=== PATIENT | female | born 2000 | race African-American/Black ===

== ENCOUNTER 2019-10-19 21:22 | Inpatient (IN) ==
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
[2019-10-19 23:21] LABS: Basophils # (auto) 0.02 K/uL (0-0.2); Basophils % (auto) 0.3 %; Eosinophils # (auto) 0.01 K/uL (0-0.5); Eosinophils % (auto) 0.1 %; Hematocrit (blood only) 42.5 % (37-47); Hemoglobin 14.6 g/dL (12.0-16.0); Immature Granulocytes # (auto) 0.03 K/uL (0.00-0.02); Immature Granulocytes % (auto) 0.4 %; Lymphocytes # (auto) 1.42 K/uL (1.2-3.4); Lymphocytes % (auto) 18.8 %; Mean Corpuscular Hemoglobin 30.6 pg (25-34); Mean Corpuscular Hgb Conc 34.4 g/dL (32-36); Mean Corpuscular Volume 89.1 fL (80-100); Mean Platelet Volume 10.9 fL (7.4-10.4); Monocytes # (auto) 0.56 K/uL (0.11-0.59); Monocytes % (auto) 7.4 %; Neutrophils # (auto) 5.52 K/uL (1.4-6.5); Platelet Count 278 K/uL (130-400); RDW Coefficient of Variation 12.7 % (11.5-14.5); RDW Standard Deviation 41.1 fL (36.4-46.3); Red Blood Count 4.77 M/uL (4.2-5.4); White Blood Count 7.56 K/uL (4.8-10.8)
[2019-10-19 23:41] LABS: Albumin Level 4.6 gm/dl (3.4-5.0); BUN Creatinine Ratio 10.1 (10-20); Creatinine Clr Calc Pharmacy 101.5 ml/min; Est GFR (African American) 108.9; Est GFR (Non-African American) 93.9; Potassium 3.7 mmol/L (3.5-5.1)
[2019-10-19 23:52] LABS: Albumin Globulin Ratio 1.2 (0.9-2); Bilirubin,Total 0.5 mg/dl (0.2-1); Globulin 3.9 gm/dl (2.5-4.0); Thyroid Stimulating Hormone 1.11 uIu/ml (0.300-4.500); Total Protein 8.5 gm/dl (6.4-8.2)
[2019-10-19 23:53] LABS: Acetaminophen < 2 ug/ml (10-30)
[2019-10-19 23:54] LABS: Salicylate < 1.7 mg/dl (2.8-20)
[2019-10-20 00:01] LABS: Pregnancy Test, Serum Negative (Negative)
[2019-10-20] MEDS ORDERED: ACETAMINOPHEN 500 MG TAB PO STA (00:47)
--- NOTE | 2019-10-20 01:40 | Emergency Department Note ---
ED Visit Note This case was signed out to me at change of shift. The patient is currently voluntary. 0315: We are currently waiting a urine specimen so that the patient can be medically cleared. [facility] will evaluate once they are cleared. 0510: I evaluated the patient at this time. She is communicating with her mother and eating una crackers and peanut butter. I had a pleasant conversation with her. She is fully awake, alert and oriented to day time and place. She is somewhat slow to answer questions as it takes her some time to process the questions. 0525: I discussed the case with Dr. perdomo and she requested that I give the patient 0.5 mg of oral Risperdal prior to her being accepted to [facility] . : Headache Qualifiers: Headache type: unspecified Headache chronicity pattern: acute headache Abdominal pain Qualifiers: Abdominal location: generalized Qualified Code(s): R10.84 - Generalized abdominal pain
[2019-10-20 03:18] VITALS: O2SAT 100
[2019-10-20 03:39] LABS: Appearance Urine Clear (Clear); Bilirubin Urine Negative (Negative); Blood Urine Negative (Negative); Color Urine Yellow; Glucose Urine UA Negative (Negative); Ketones Urine Trace (Negative); Leukocyte Esterase Urine Negative (Negative); Nitrite Urine Negative (Negative); Protein Urine Negative (Negative); Specific Gravity Urine 1.022 (1.000-1.030); Urobilinogen Urine Negative (Negative); pH Urine 6.5 (4.5-7.5)
[2019-10-20 03:57] LABS: Amphetamines+Metham, Urine Neg (Neg); Barbiturates, Urine Neg (Neg); Benzodiazepine, Urine Neg (Neg); Cocaine, Urine Neg (Neg); MDMA (Ecstacy), Urine Neg (Neg); Methadone, Urine Neg (Neg); Opiate, Urine Neg (Neg); Phencyclidine, Urine Neg (Neg)
[2019-10-20] MEDS ORDERED: risperiDONE 0.5 MG TABLET PO STA (05:25)
[2019-10-20] MEDS ORDERED: ACETAMINOPHEN 325 MG TAB PO PRN (06:44)
[2019-10-20] MEDS ORDERED: BISMUTH SUBSALICYLATE PER ML OMNICELL CHARGE PO PRN (06:44)
[2019-10-20] MEDS ORDERED: MAGNESIUM HYDROXIDE SUSP 30 ML UDC PO PRN (06:44)
[2019-10-20] MEDS ORDERED: SODIUM CHLORIDE 0.65% NA SOLN 45 ML (OCEAN) PRN (06:44)
[2019-10-20] MEDS ORDERED: ALUMINUM/MAGNESIUM SUSP 30 ML UDC PO PRN (06:44)
--- NOTE | 2019-10-20 07:54 | CT Scan Report ---
CT head/brain wo con CLINICAL HISTORY: 19 years-old Female with parinoia, ams. Acutely altered mental status TECHNIQUE: Multiple axial CT images of the head were obtained without contrast. A dose lowering tech nique was utilized adhering to the principles of ALARA. CT DOSE: 614.27 mGy.cm COMPARISON: None. FINDINGS: No acute intracranial hemorrhage, midline shift, intracranial mass, hydrocephalus, territorial ischem ia or abnormal extra-axial collection. The calvarium is intact. The paranasal sinuses, mastoid air cells, and middle ear cavities are clear . IMPRESSION: No acute intracranial abnormality. ACT 112: Negative or not required by law. The above report was generated using voice recognition software. It may contain grammatical, syntax o r spelling errors. Electronically signed by: Alan Otero M.D. 10/20/2019 7:53 AM
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
[2019-10-20] MEDS: MULTIVITAMIN TAB PO SCH (10:25)
[2019-10-20] MEDS ORDERED: risperiDONE 0.5 MG TABLET PO PRN (12:29)
[2019-10-20] MEDS ORDERED: risperiDONE 0.5 MG TABLET PO SCH (14:00)
[2019-10-20] MEDS: LORazepam 0.5 MG TAB PO PRN (17:44)
[2019-10-20] MEDS ORDERED: risperiDONE ODT 0.5 MG SOLTAB PO PRN (18:30)
[2019-10-20] MEDS: risperiDONE ODT 0.5 MG SOLTAB PO SCH (21:05)
[2019-10-21] MEDS: LORazepam 0.5 MG TAB PO PRN (06:07)
[2019-10-21] MEDS: MULTIVITAMIN TAB PO SCH (10:25)
[2019-10-21] MEDS: risperiDONE ODT 0.5 MG SOLTAB PO SCH ×2 (10:25→10:52)
[2019-10-21] MEDS ORDERED: RISPERIDONE ODT 1MG PO PRN (14:57)
--- NOTE | 2019-10-21 15:02 | Psychiatric Progress Note ---
Date of Service October 21, 2019 Impression / Recommendations Impression 19 yo female with no prior psych hx presents with acute onset of severe thought disorganization with blocking in just the past 1-2 days. Differential mainly includes first break psychosis due to thought disorder, atypical [place], or substance induced psychotic disorder. I am favoring the latter given the time course and positive tox screen for MJ but additional collateral is needed. She has good premorbid functioning but also need to determine if other symptoms as prodrome that mother not aware of. (1) Psychotic disorder: 10/19--The patient was admitted to the [facility] ([facility]) on q15 min checks (behavioral with suicide precautions) for safety. The patient will participate in group, recreational, and milieu therapies and will be offered additional individual and family sessions as clinically appropriate. She is not able to fully understand risks/benefits of antipsychotic medications at this time and will be offered Risperdal 0.5 mg BID today with likely titration. Additional Risperdal and Ativan prn agitation as appears quite paranoid. Fasting labs in am as likely to be discharged on atypical. 10/20--tolerating medications so far, need to increase Risperdal to 1 mg BID and Ativan prn to 1 mg for severity of symptoms. Consider switch to Zyprexa if remains sleepless. 302 completed. Will reattempt fasting labs in am as patient ate prior to draw. Inventory Assets Strengths: intelligence, family support Needs: improve insight into her condition Risk Factors Assessment Do You Have Access To A Gun?: No Previous Attempt: No Previous Psychiatric Hospitalization: No Protective Factors Assessment Employed: No Supportive Family: Yes Interval History Chief Complaint "I'm not crazy, I'm leaving". Review of Systems Sleep Information Total Hours of Sleep: 0 Meal Information Percent Meal Consumed - Breakfast: 50 Percent Meal Consumed - Lunch: 50 Percent Meal Consumed - Dinner: 50 Nutrition Comment: pt. asleep Subjective Subjective Patient was seen & assessed and interval progress reviewed with nursing and social work. Patient has been very disorganized in behavior, staring at other pa tients, delayed responses due to thought blocking, no understanding of why she is here. Randomly filling out paperwork, listed a co-patient as her POA. Regardless correctly completed a 72 hour notice. Mother was contacted and made aware of need to move to 302 involuntary commitment. Delegate approved warrant, patient had no understanding of rights. Wore some of her roommate's clothing. Did not sleep. Frequently testing boundaries at nurses station. Was checking doors so now on elopement precautions. Very resistant to medications, will take if talks with mother and given with . Physical Exam Psychiatric Orientation: alert and + guarded Apperance: + disheveled Eye Contact: + poor eye contact Motor Behavior: + psychomotor retardation Affect: + blunted affect Thought Process: + thought blocking Thought Content: + paranoid Hallucinations: + visual hallucinations (vs illusions) Cognition: language grossly intact; + attention not intact Insight: + impaired insight Judgement: + impaired judgement Vital Signs (Past 24 Hours) Last Vital Signs Temp 36.9 C 10/20/19 08:10 Pulse 90 10/20/19 08:10 Resp 18 10/20/19 08:10 BP 120/70 10/20/19 08:10 Pulse Ox 100 10/20/19 06:26 Results & Data ([facility] [place]) Current Inpatient Medications Current Inpatient Medications: Current Inpatient Medications Acetaminophen (Acetaminophen 325 Mg Tab) 650 mg PO Q4H PRN PRN Reason: Headache or Minor Fever Stop: 11/19/19 06:43 Last Admin: 10/20/19 18:30 Dose: 650 mg Documented by: Al Hydrox/Mg Hydrox/Simethicone (Aluminum/Magnesium Susp 30 Ml Udc) 30 ml PO Q4H PRN PRN Reason: GI Upset Stop: 11/19/19 06:43 Benztropine Mesylate (Benztropine Mesylate 0.5 Mg Tab) 0.5 mg PO Q6 PRN PRN Reason: Muscle Spasm Stop: 11/19/19 12:28 Bismuth Subsalicylate (Bismuth Subsalicylate Per Ml Omnicell Charge) 15 ml PO PRN PRN PRN Reason: Loose Stool Stop: 11/19/19 06:43 Hydroxyzine HCl (Hydroxyzine Hcl 25 Mg Tab) 50 mg PO HSZ PRN PRN Reason: Insomnia Stop: 11/19/19 06:43 Hydroxyzine HCl (Hydroxyzine Hcl 25 Mg Tab) 25 mg PO Q4H PRN PRN Reason: Anxiety Stop: 11/19/19 06:43 Lorazepam (Lorazepam 1 Mg Tab) 1 mg PO Q6 PRN PRN Reason: Anxiety/Agitation Stop: 11/19/19 12:28 Magnesium Hydroxide (Magnesium Hydroxide Susp 30 Ml Udc) 30 ml PO DAILY PRN PRN Reason: Constipation Stop: 11/19/19 06:43 Multivitamins (Multivitamin Tab) 1 tab PO QAM DANUTA Stop: 11/19/19 08:59 Last Admin: 10/21/19 10:25 Dose: Not Given Documented by: Risperidone (Risperidone Odt 1mg) 1 mg PO BID DANUTA Stop: 11/20/19 20:59 Risperidone (Risperidone Odt 1mg) 1 mg PO Q6 PRN PRN Reason: Anxiety/Agitation Stop: 11/19/19 18:29 Sodium Chloride (Sodium Chloride 0.65% Na Soln 45 Ml ([place])) 1 - 2 sprays NA PRN PRN PRN Reason: Nasal Dryness/Congestion Stop: 11/19/19 06:43 Mental Health & Subst Abuse Tx Therapist Name of Therapist: None Statistical Technician Name of Statistical Technician: None Post Discharge Appointments Primary Care Physician Name Of Family Doctor: [facility] Primary Care Provider Appointment Comment: [facility] Contact Information Discharge Contact Information Comment: Permanent Address[address] [address] [place] [address] (1) Psychotic disorder Psychosis type: unspecified psychosis type Qualified Code(s): F29 - Unspecified psychosis not due to a substance or known physiological condition
[2019-10-21] MEDS: RISPERIDONE ODT 1MG PO SCH (22:42)
[2019-10-21] MEDS ORDERED: OLANZapine 10 MG/2.1 ML SDV IM PRN (23:00)
[2019-10-21 23:41] LABS: Marijuana Quant, GCMS Urine 230 ng/mL (<5)
[2019-10-22] MEDS: LORazepam 1 MG TAB PO PRN (04:49)
[2019-10-22] MEDS: RISPERIDONE ODT 1MG PO SCH (08:17)
[2019-10-22] MEDS: MULTIVITAMIN TAB PO SCH (08:17)
--- NOTE | 2019-10-22 09:31 | Psychiatric Progress Note ---
Date of Service October 22, 2019 Impression / Recommendations Impression 19 yo female with no prior psych hx presents with acute onset of severe thought disorganization with blocking in just the past 1-2 days. Differential mainly includes first break psychosis due to thought disorder, atypical [place]ia, or substance induced psychotic disorder. She has been resistant to medication and is now on a 302 commitment after signing a 72 hour notice. (1) Psychotic disorder: 10/19--The patient was admitted to the [facility] ([facility] unit) on q15 min checks (behavioral with suicide precautions) for safety. The patient will participate in group, recreational, and milieu therapies and will be offered additional individual and family sessions as clinically appropriate. She is not able to fully understand risks/benefits of antipsy chotic medications at this time and will be offered Risperdal 0.5 mg BID today with likely titration. Additional Risperdal and Ativan prn agitation as appears quite paranoid. Fasting labs in am as likely to be discharged on atypical. 10/20--tolerating medications so far, need to increase Risperdal to 1 mg BID and Ativan prn to 1 mg for severity of symptoms. Consider switch to Zyprexa if remains sleepless. 302 completed. Will reattempt fasting labs in am as patient ate prior to draw. 10/21--will add standing Ativan 1 mg BID (2nd dose with evening meal) given catatonic features and given lack of sleep and possible need for IM prep, hold Risperdal tonight in favor of 1 time dose of Zyprexa 5 mg hs. If benefit, primary team can decide which atypical to continue with tomorrow. It is my medical opinion that Kimberly is unable to care for herself outside of the hospital setting and that worsening of her psychosis or significant harm to self or others is likely within the next 30 days if she does not receive antipsychotic medication. This is necessary even over her objection to restore functioning to participate in care and treatment planning. Inventory Assets Strengths: intelligence, family support Needs: improve insight into her condition Risk Factors Assessment Do You Have Access To A Gun?: No Previous Attempt: No Previous Psychiatric Hospitalization: No Protective Factors Assessment Employed: No Supportive Family: Yes Interval History Chief Complaint "I'm sorry, I don't know who I am". Review of Systems Sleep Information Total Hours of Sleep: 0 Meal Information Percent Meal Consumed - Breakfast: 50 Percent Meal Consumed - Lunch: 50 Percent Meal Consumed - Dinner: 0 Nutrition Comment: pt. asleep Subjective Subjective Patient was seen & assessed and interval progress reviewed with nursing. Only slept 4-8 pm, no sleep on overnight shift. She left DANIELLE readily this am to speak with mother on phone and essentially froze, staring, though blocking. She is obsessed with a copatient. Harder to redirect. Tried to take phone from social media developer. Seems less paranoid if able to see staff mouths briefly behind face shield but obviously due to to precautions need to limit and confirm. Asked nurse what she should do with a cup and asked a patient to build her a house and started crying thinking that a staff member was God. I spoke with mother by phone, reportedly sister called in asking if she could be started on lithium or Tegretol mood stabilizers. Mother was very understanding of need for involuntary commitment as unsafe to leave hospital. Answered questions re: use of atypical antipsychotics. Reviewed that primary cause of her psychosis is unclear at this time, given no hx of mood swings or issues while home on quarantine bipolar seems less likely and she would not be able to take the lithium right now even if it was appropriate. Reviewed that longer term plan will need to be formulated after she improved a bit and Risperdal was chose as less EPS/TD risk than Haldol and can be given as dissolvable. She again confirmed her baseline functioning and rapid onset of symptoms and denied family history of bipolar or psychosis. Physical Exam Psychiatric Orientation: alert and + guarded Apperance: + disheveled Eye Contact: + poor eye contact Motor Behavior: + psychomotor retardation Affect: + blunted affect Thought Process: + thought blocking Thought Content: + paranoid Hallucinations: + visual hallucinations (vs illusions) Cognition: language grossly intact; + attention not intact Insight: + impaired insight Judgement: + impaired judgement Vital Signs (Past 24 Hours) Last Vital Signs Temp 36.9 C 10/20/19 08:10 Pulse 90 10/20/19 08:10 Resp 18 10/20/19 08:10 BP 120/70 10/20/19 08:10 Pulse Ox 100 10/20/19 06:26 Results & Data ([facility]) Laboratory Results Laboratory Results - last 24 hr 10/20/19 03:25 U Marijuana THC Carboxy 230 H Drug Screen Comment SEE NOTE Current Inpatient Medications Current Inpatient Medications: Current Inpatient Medications Acetaminophen (Acetaminophen 325 Mg Tab) 650 mg PO Q4H PRN PRN Reason: Headache or Minor Fever Stop: 11/19/19 06:43 Last Admin: 10/20/19 18:30 Dose: 650 mg Documented by: Al Hydrox/Mg Hydrox/Simethicone (Aluminum/Magnesium Susp 30 Ml Udc) 30 ml PO Q4H PRN PRN Reason: GI Upset Stop: 11/19/19 06:43 Benztropine Mesylate (Benztropine Mesylate 0.5 Mg Tab) 0.5 mg PO Q6 PRN PRN Reason: Muscle Spasm Stop: 11/19/19 12:28 Bismuth Subsalicylate (Bismuth Subsalicylate Per Ml Omnicell Charge) 15 ml PO PRN PRN PRN Reason: Loose Stool Stop: 11/19/19 06:43 Hydroxyzine HCl (Hydroxyzine Hcl 25 Mg Tab) 50 mg PO HSZ PRN PRN Reason: Insomnia Stop: 11/19/19 06:43 Hydroxyzine HCl (Hydroxyzine Hcl 25 Mg Tab) 25 mg PO Q4H PRN PRN Reason: Anxiety Stop: 11/19/19 06:43 Lorazepam (Lorazepam 1 Mg Tab) 1 mg PO Q6 PRN PRN Reason: Anxiety/Agitation Stop: 11/19/19 12:28 Last Admin: 10/22/19 04:49 Dose: 1 mg Documented by: Magnesium Hydroxide (Magnesium Hydroxide Susp 30 Ml Udc) 30 ml PO DAILY PRN PRN Reason: Constipation Stop: 11/19/19 06:43 Multivitamins (Multivitamin Tab) 1 tab PO QAM DANUTA Stop: 11/19/19 08:59 Last Admin: 10/22/19 08:17 Dose: Not Given Documented by: Olanzapine (Olanzapine 10 Mg/2.1 Ml Sdv) 10 mg IM ONE PRN PRN Reason: AGITATION Stop: 11/20/19 22:59 Risperidone (Risperidone Odt 1mg) 1 mg PO BID DANUTA Stop: 11/20/19 20:59 Last Admin: 10/22/19 08:17 Dose: 1 mg Documented by: Risperidone (Risperidone Odt 1mg) 1 mg PO Q6 PRN PRN Reason: Anxiety/Agitation Stop: 11/19/19 18:29 Sodium Chloride (Sodium Chloride 0.65% Na Soln 45 Ml ([place])) 1 - 2 sprays NA PRN PRN PRN Reason: Nasal Dryness/Congestion Stop: 11/19/19 06:43 Mental Health & Subst Abuse Tx Therapist Name of Therapist: None Boiler Setter Name of Boiler Setter: None Post Discharge Appointments Primary Care Physician Name Of Family Doctor: MAYITO NELSON Primary Care Provider Appointment Comment: [facility] Contact Information Discharge Contact Information Comment: Permanent Address: [address] [place] [address] (1) Psychotic disorder Psychosis type: unspecified psychosis type Qualified Code(s): F29 - Unspecified psychosis not due to a substance or known physiological condition
[2019-10-22] MEDS ORDERED: LORazepam 1 MG TAB PO STA (09:32)
[2019-10-22] MEDS ORDERED: OLANZapine 10 MG/2.1 ML SDV IM PRN (15:23)
[2019-10-22] MEDS: LORazepam 1 MG TAB PO SCH (16:32)
[2019-10-22] MEDS: OLANZAPINE ZYDIS 5 MG ORALLY DIS. TAB PO PRN (18:20)
[2019-10-22] MEDS ORDERED: OLANZAPINE ZYDIS 5 MG ORALLY DIS. TAB PO ONE ×2 (22:00)
[2019-10-22] MEDS ORDERED: OLANZAPINE ZYDIS 5 MG ORALLY DIS. TAB PO SCH (22:00)
[2019-10-23] MEDS: OLANZAPINE ZYDIS 5 MG ORALLY DIS. TAB PO PRN ×2 (03:03→16:28)
[2019-10-23] MEDS ORDERED: HALOPERIDOL LACTATE 5 MG/ML 1 ML VIAL ONE (08:32)
[2019-10-23] MEDS ORDERED: LORazepam 2 MG/ML VIAL (IM USE) ONE (08:33)
--- NOTE | 2019-10-23 08:33 | Communication Note ---
Date of Service: October 23, 2019 I have personally examined the patient this morning. She immediately fell to her knees and called out to me, "Carlos! I'm Sneha!" The patient is floridly disorganized, floridly psychotic, and disoriented. In addition, she repeatedly attempts to charge the nursing station and staff as they walk past her. It is my finding that Ms. Robertson is unlikely to improve clinically without the administration of antipsychotic medications. Dr. Mclaughlin has rendered a first opinion, and I am in agreement with her conclusion in this case. I will order medications over objection to assist Ms. Harris in recovering to the degree that she is no longer an acute risk to herself and others.
[2019-10-23] MEDS ORDERED: BENZTROPINE MESYLATE 1 MG/ML 2 ML AMP ONE (08:34)
[2019-10-23] MEDS ORDERED: BENZTROPINE MESYLATE 1 MG/ML 2 ML AMP IM STA (08:39)
[2019-10-23] MEDS ORDERED: HALOPERIDOL LACTATE 5 MG/ML 1 ML VIAL IM STA ×2 (08:39→09:40)
[2019-10-23] MEDS ORDERED: LORazepam 2 MG/ML VIAL (IM USE) IM STA (08:41)
[2019-10-23] MEDS: LORazepam 1 MG TAB PO SCH ×2 (08:46→16:26)
[2019-10-23] MEDS: MULTIVITAMIN TAB PO SCH (08:46)
--- NOTE | 2019-10-23 08:47 | Communication Note ---
Date of Service: October 23, 2019 The patient is acutely agitated and grossly confused and psychotic. She required a physical hold in order for her to received medically necessary psychiatric medication. I personally examined her during the procedure. It is my finding that she required a physical hold in order to maintain safety and prevent serious physical harm to herself and others. The hold lasted one minute.
--- NOTE | 2019-10-23 09:34 | Communication Note ---
Date of Service: October 23, 2019 Patient remains very agitated. She is marching back in forth in the hallway and shouting, "Carlos! Carlos!" Continues to drop to her knees and claims to be various Biblical characters. Will give another dose of Haldol 5 mg IM, over patient's objection if necessary, plus diphenhydramine 50 mg IM stat due to severe agitation.
[2019-10-23] MEDS ORDERED: DiphenhydrAMINE HCL 50 MG/ML VIAL IM STA (09:41)
--- NOTE | 2019-10-23 12:31 | Communication Note ---
Date of Service: October 23, 2019 Patient calmed independently without additional medications (Haldol and diphenhydramine). Orders discontinued.
[2019-10-23] MEDS ORDERED: HALOPERIDOL LACTATE 5 MG/ML 1 ML VIAL IM PRN (12:39)
--- NOTE | 2019-10-23 12:55 | Psychiatric Progress Note ---
Date of Service October 23, 2019 Impression / Recommendations Impression 19 yo female with no prior psych hx presents with acute onset of severe thought disorganization with blocking in just the past 1-2 days. Differential mainly includes first break psychosis due to thought disorder, atypical [place], or substance induced psychotic disorder. She has been resistant to medication and is now on a 302 commitment after signing a 72 hour notice. By the third day of the hospitalization the patient's condition had not improved at all. In fact, staff members felt that she was, if anything, becoming more disorganized and more psychotic. She has a frightened almost frantic look on her face much of the time that she calls out "Carlos" and "I am yours." Her tox screen at admission was positive for marijuana, but it seems quite unlikely that the use of marijuana, even at larger amounts, would explain the ongoing presentation. It is, of course, possible that the marijuana that she had been using was "laced" with drugs such as PCP, or synthetic drugs that may not have been detectable on testing. Medications over objection have been found to be medically necessary by 2 psychiatrist, and medications over objection have been ordered. She also received stat doses of haloperidol and lorazepam on the morning of 10/23/2019, and this seems to have at least allow the patient to calm. She is refusing most medications. (1) Psychotic disorder: 10/19--The patient was admitted to the [facility] ([facility] health unit) on q15 min checks (behavioral with suicide precautions) for safety. The patient will participate in group, recreational, and milieu therapies and will be offered additional individual and family sessions as clinically appropriate. She is not able to fully understand risks/benefits of antipsychotic medications at this time and will be offered Risperdal 0.5 mg BID today with likely titration. Additional Risperdal and Ativan prn agitation as appears quite paranoid. Fasting labs in am as likely to be discharged on atypical. 10/20--tolerating medications so far, need to increase Risperdal to 1 mg BID and Ativan prn to 1 mg for severity of symptoms. Consider switch to Zyprexa if remains sleepless. 302 completed. Will reattempt fasting labs in am as patient ate prior to draw. 10/21--will add standing Ativan 1 mg BID (2nd dose with evening meal) given catatonic features and given lack of sleep and possible need for IM prep, hold Risperdal tonight in favor of 1 time dose of Zyprexa 5 mg hs. If benefit, primary team can decide which atypical to continue with tomorrow. It is my medical opinion that Kimberly is unable to care for herself outside of the hospital setting and that worsening of her psychosis or significant harm to self or others is likely within the next 30 days if she does not receive antipsychotic medication. This is necessary even over her objection to restore functioning to participate in care and treatment planning. 10/22 -Zyprexa 5 mg at bedtime last evening seem not to have been particularly effective. We resumed risperidone at a higher dose today at risperidone 2 mg twice a day. In addition, medications over objection were ordered. -The patient continues to resist most oral medications, or will only take oral medications with a great deal of active encouragement and support from staff. Medications over objection will be haloperidol 5 mg IM twice daily for refusal of p.o. risperidone. -What we are seeing may be a first episode of virginia, but the presentation is atypical and the onset seems to be quite rapid. While it seems unlikely that marijuana alone could explain the current clinical presentation, we are concerned that perhaps the patient has taken a synthetic drug with the marijuana or has used phencyclidine (PCP). The plan is to attempt to acidify the patient's urine to help clear drug such as PCP. Accordingly, ascorbic acid (vitamin C) has been ordered 1000 mg daily, starting tomorrow has been ordered. Inventory Assets Strengths: intelligence, family support Needs: improve insight into her condition Risk Factors Assessment Do You Have Access To A Gun?: No Previous Attempt: No Previous Psychiatric Hospitalization: No Protective Factors Assessment Employed: No Supportive Family: Yes Interval History Chief Complaint "Carlos! Carlos! I'm Sneha!" Review of Systems Sleep Information Total Hours of Sleep: 9.25 Meal Information Percent Meal Consumed - Breakfast: 0 Percent Meal Consumed - Lunch: 0 Percent Meal Consumed - Dinner: 10 Nutrition Comment: pt. asleep Subjective Subjective Patient was seen & assessed and interval progress reviewed with treatment team. I met individually with the patient in order to assess her current mental status, evaluate her response to treatment, coordinate with the patient any n ecessary changes in her treatment plan; and address issues, questions and concerns that may arise. The patient is floridly psychotic and unable to participate meaningfully in a psychiatric interview. As I approached her, the patient dropped to her knees, clasp her hands as if to pray, and cried out "Carlos! Carlos! I am Sneha!" The patient then arose and attempted to push her way to the nursing station, and began pushing against various staff members as they attempted to assist her. A second opinion for medication over objection was provided, and the patient was given haloperidol 5 mg IM, lorazepam 2 mg IM, and benztropine 2 mg IM after she repeatedly refused and attempted to physically push away staff members were offering her oral psychiatric medications. Eventually, a brief 1 minute physical hold was necessary in order to administer the psychiatric medications within the context of extreme agitation and behaviors that were perceived as being dangerous, such as charging at staff and shoving staff members. Several additional attempts were made to speak with the patient as she became more calm. However, although the patient eventually stopped getting down on her knees as if to pray, she continued to say "Carlos! Carlos!" She would occasionally answer a question after a long delay, often with a yes or no, but would not elaborate. Physical Exam Psychiatric Orientation: + not oriented to person, + not oriented to place, + not oriented to time and + uncooperative Apperance: appropriately dressed and appeared stated age Eye Contact: + poor eye contact Motor Behavior: + psychomotor agitation Speech: + loud speech Affect: + labile affect The patient was unable to answer questions regarding her mood. Thought Process: + word salad Thought Content: + delusions The patient was unable to answer questions regarding suicidality, given her agitation and the degree of grossly disorganized thinking. The patient was unable to answer questions regarding homicidality, given her agitation and the degree of grossly disorganized thinking. However she did attempt to shove and grab various staff members somewhat aggressively Hallucinations: + auditory hallucinations (The patient appears to be responding to internal stimuli and will periodically look as if to unseen person or persons and call out as if addressing the unseen person or persons.) Assessment of the patient's cognition is not possible given her extreme disorganization and agitation. Estimated Intelligence: + above average estimated intelligence Above average intelligence is presumed given the fact that she is a college student. Insight: + severely impaired insight Judgement: + severely impaired judgement Vital Signs (Past 24 Hours) Last Vital Signs Temp 36.9 C 10/20/19 08:10 Pulse 90 10/20/19 08:10 Resp 18 10/20/19 08:10 BP 120/70 10/20/19 08:10 Pulse Ox 100 10/20/19 06:26 Results & Data ([facility]) Current Inpatient Medications Current Inpatient Medications: Current Inpatient Medications Acetaminophen (Acetaminophen 325 Mg Tab) 650 mg PO Q4H PRN PRN Reason: Headache or Minor Fever Stop: 11/19/19 06:43 Last Admin: 10/20/19 18:30 Dose: 650 mg Documented by: Al Hydrox/Mg Hydrox/Simethicone (Aluminum/Magnesium Susp 30 Ml Udc) 30 ml PO Q4H PRN PRN Reason: GI Upset Stop: 11/19/19 06:43 Benztropine Mesylate (Benztropine Mesylate 0.5 Mg Tab) 0.5 mg PO Q6 PRN PRN Reason: Muscle Spasm Stop: 11/19/19 12:28 Bismuth Subsalicylate (Bismuth Subsalicylate Per Ml Omnicell Charge) 15 ml PO PRN PRN PRN Reason: Loose Stool Stop: 11/19/19 06:43 Hydroxyzine HCl (Hydroxyzine Hcl 25 Mg Tab) 50 mg PO HSZ PRN PRN Reason: Insomnia Stop: 11/19/19 06:43 Hydroxyzine HCl (Hydroxyzine Hcl 25 Mg Tab) 25 mg PO Q4H PRN PRN Reason: Anxiety Stop: 11/19/19 06:43 Lorazepam (Lorazepam 1 Mg Tab) 1 mg PO Q6 PRN PRN Reason: Anxiety/Agitation Stop: 11/19/19 12:28 Last Admin: 10/22/19 04:49 Dose: 1 mg Documented by: Lorazepam (Lorazepam 1 Mg Tab) 1 mg PO [id number] [facility] Stop: 11/21/19 16:59 Last Admin: 10/23/19 08:46 Dose: Not Given Documented by: Magnesium Hydroxide (Magnesium Hydroxide Susp 30 Ml Udc) 30 ml PO DAILY PRN PRN Reason: Constipation Stop: 11/19/19 06:43 Multivitamins (Multivitamin Tab) 1 tab PO QAM [facility] Stop: 11/19/19 08:59 Last Admin: 10/23/19 08:46 Dose: Not Given Documented by: Olanzapine (Olanzapine 10 Mg/2.1 Ml Sdv) 10 mg IM Q8 PRN PRN Reason: AGITATION Stop: 11/20/19 22:59 Olanzapine (Olanzapine Zydis 5 Mg Orally Dis. Tab) 5 mg PO Q6H PRN PRN Reason: psychosis Stop: 11/21/19 18:07 Last Admin: 10/23/19 03:03 Dose: 5 mg Documented by: Risperidone (Risperidone Odt 1mg) 1 mg PO Q6 PRN PRN Reason: Anxiety/Agitation Stop: 11/19/19 18:29 Last Admin: 10/22/19 16:32 Dose: 1 mg Documented by: Sodium Chloride (Sodium Chloride 0.65% Na Soln 45 Ml ([place])) 1 - 2 sprays NA PRN PRN PRN Reason: Nasal Dryness/Congestion Stop: 11/19/19 06:43 Mental Health & Subst Abuse Tx Therapist Name of Therapist: None Paint Department Supervisor Name of Paint Department Supervisor: None Post Discharge Appointments Primary Care Physician Name Of Family Doctor: [facility] Primary Care Provider Appointment Comment: [facility] Contact Information Discharge Contact Information Comment: Permanent [address]: [address] [place] [address] (1) Psychotic disorder Psychosis type: unspecified psychosis type Qualified Code(s): F29 - Unspecified psychosis not due to a substance or known physiological condition
[2019-10-23] MEDS: BENZTROPINE MESYLATE 0.5 MG TAB PO PRN (16:26)
[2019-10-23] MEDS: LORazepam 1 MG TAB PO PRN (20:06)
[2019-10-23] MEDS ORDERED: RISPERIDONE ODT 1MG PO SCH (21:00)
[2019-10-24] MEDS ORDERED: BENZTROPINE MESYLATE 1 MG/ML 2 ML AMP IM PRN (08:59)
[2019-10-24] MEDS ORDERED: HALOPERIDOL LACTATE 5 MG/ML 1 ML VIAL IM PRN ×3 (09:00→13:15)
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
[2019-10-24] MEDS ORDERED: RISPERIDONE ODT 1MG PO SCH (09:15)
[2019-10-24] MEDS: LORazepam 2 MG/ML VIAL (IM USE) IM PRN ×2 (09:58→14:44)
--- NOTE | 2019-10-24 10:08 | Communication Note ---
Date of Service: October 24, 2019 This PA-C was present in nursing station during anticipated physical restraint in order to deliver medications over objection - patient with two documented physician opinions suggesting medical necessity of this. Pt was offered, and refused, scheduled oral dosing of risperidone ODT 4mg. This provider observe initiation of physical hold, with assistance provided by two security officers. Pt ambulated to her bed with assistance from staff and physical hold initiated to appopriately position and ensure safety of patient and staff as medications w ere being injected. Physical hold started at 09:58 and 45 seconds and ended at 10:00 and 45 seconds, and patient tolerated physical hold without incident. (Of note: due to processing time of computer system, order in chart is timed at 10:05 with order being stopped at 10:08 - which were not times of true physical hold). Pt received 10mg of haloperidol, 1mg of lorazepam, and 2mg of benztropine during this medication administration. Pt was observed after the administration of medications and was found to be sitting cross-legged on the edge of her bed, holding her arms in the air with eyes closed - appearing to be praying. This provider again met with patient along with charge nurse as patient was knocking on nurse's station door and had difficulty with redirection back to her room. Pt was not able to understand or comply with instructions for formal physical examination ~10 minutes after physical hold, but patient is clearly ambulating without difficulty, moving all extremities, and does not verbalize or appear to be in any distress. Will continue to monitor.
[2019-10-24] MEDS: MULTIVITAMIN TAB PO SCH (10:12)
[2019-10-24] MEDS: LORazepam 1 MG TAB PO SCH ×3 (10:12→21:47)
[2019-10-24] MEDS: ASCORBIC ACID 500 MG TAB PO SCH (10:12)
[2019-10-24] MEDS: RISPERIDONE ODT 1MG PO SCH (14:40)
[2019-10-24] MEDS: HALOPERIDOL LACTATE 5 MG/ML 1 ML VIAL IM PRN (14:44)
[2019-10-24] MEDS: BENZTROPINE MESYLATE 1 MG/ML 2 ML AMP IM PRN (14:44)
--- NOTE | 2019-10-25 10:39 | Psychiatric Progress Note ---
Date of Service October 25, 2019 Impression / Recommendations Impression 19 yo female with no prior psych hx presents with acute onset of severe thought disorganization with blocking in just the past 1-2 days. Differential mainly includes first break psychosis due to thought disorder, atypical virginia, or substance induced psychotic disorder. She has been resistant to medication and is now on a 302 commitment after signing a 72 hour notice. By the third day of the hospitalization the patient's condition had not improved at all. In fact, staff members felt that she was, if anything, becoming more disorganized and more psychotic. She has a frightened almost frantic look on her face much of the time that she calls out "Carlos" and "I am yours." Her tox screen at admission was positive for marijuana, but it seems quite unlikely that the use of marijuana, even at larger amounts, would explain the ongoing presentation. It is, of course, possible that the marijuana that she had been using was "laced" with drugs such as PCP, or synthetic drugs that may not have been detectable on testing. Medications over objection have been found to be medically necessary by 2 psychiatrist, and medications over objection have been ordered. She has required IM injections for medication of objections. (1) Psychotic disorder: 10/19--The patient was admitted to the [facility] ([facility] unit) on q15 min checks (behavioral with suicide precautions) for safety. The patient will participate in group, recreational, and milieu therapies and will be offered additional individual and family sessions as clinically appropriate. She is not able to fully understand risks/benefits of antipsychotic medications at this time and will be offered Risperdal 0.5 mg BID today with likely titration. Additional Risperdal and Ativan prn agitation as appears quite paranoid. Fasting labs in am as likely to be discharged on atypical. 10/20--tolerating medications so far, need to increase Risperdal to 1 mg BID and Ativan prn to 1 mg for severity of symptoms. Consider switch to Zyprexa if remains sleepless. 302 completed. Will reattempt fasting labs in am as patient ate prior to draw. 10/21--will add standing Ativan 1 mg BID (2nd dose with evening meal) given catatonic features and given lack of sleep and possible need for IM prep, hold Risperdal tonight in favor of 1 time dose of Zyprexa 5 mg hs. If benefit, primary team can decide which atypical to continue with tomorrow. It is my medical opinion that Isra is unable to care for herself outside of the hospital setting and that worsening of her psychosis or significant harm to self or others is likely within the next 30 days if she does not receive antipsychotic medication. This is necessary even over her objection to restore functioning to participate in care and treatment planning. 10/22 -Zyprexa 5 mg at bedtime last evening seem not to have been particularly effective. We resumed risperidone at a higher dose today at risperidone 2 mg twice a day. In addition, medications over objection were ordered. -The patient continues to resist most oral medications, or will only take oral medications with a great deal of active encouragement and support from staff. Medications over objection will be haloperidol 5 mg IM twice daily for refusal of p.o. risperidone. -What we are seeing may be a first episode of virginia, but the presentation is atypical and the onset seems to be quite rapid. While it seems unlikely that marijuana alone could explain the current clinical presentation, we are concerned that perhaps the patient has taken a synthetic drug with the marijuana or has used phencyclidine (PCP). The plan is to attempt to acidify the patient's urine to help clear drug such as PCP. Accordingly, ascorbic acid (vitamin C) has been ordered 1000 mg daily, starting tomorrow has been ordered. 10/23 - Orders adjusted as patient has required medications over objection. Pt received haloperidol 10mg, lorazepam 1mg, and benztropine 2mg IM. Scheduled oral medication, which patient has been refusing, was adjusted to 2mg BID of risperidone ODT as of yesterday. Will continue BID dosing, with IM's for medication refusal. - Orders for prn doses of oral risperidone, as well as IM haloperidol and lorazepam ordered for severe psychosis/agitation. - Pt continues to occupy DANIELLE and remains on a MNPR 10/24 - Continue orders as above - patient required IM medications over objection this morning due to refusal of PO risperidone - Dose of IM lorazepam was titrated to 2mg BID, due to catatonia being included in differential diagnosis - Pt continues to require the DANIELLE for ongoing psychosis with associated behavioral concerns, she remains on MNPR Inventory Assets Strengths: intelligence, family support Needs: improve insight into her condition Risk Factors Assessment Do You Have Access To A Gun?: No Previous Attempt: No Previous Psychiatric Hospitalization: No Protective Factors Assessment Employed: No Supportive Family: Yes Interval History Identifying Information ISRA GARCIA is a 19-year-old F, [employer] Senior from [facility], has no prior psych history and was admitted on 10/20/19 05:34 on a 201 voluntary commitment for disorganized behavior/psychosis. Chief Complaint "Forgiveness." Review of Systems Notes Pt remains floridly psychotic, and responded very little to attempts to engage in conversation. Unable to participate in full ROS. Patient did not verbalize any physical concerns. Sleep Information Total Hours of Sleep: 7.25 Sleep Comments: pt appeared to sleep 3 hrs during evening shift. pt on q-15 minute checks Meal Information Percent Meal Consumed - Breakfast: 100 Percent Meal Consumed - Lunch: 0 Percent Meal Consumed - Dinner: 0 Nutrition Comment: Pt is currently sleeping Subjective Subjective Patient was seen & assessed and interval progress reviewed with nursing and so cial work. Staff report the patient continues to be floridly psychotic, but alternating between significant thought blocking and episodes of verbalizing significant delusional thought content. Pt has reportedly started integrating staff and other patient's into her delusions. She required medications over objection twice yesterday for refusal of PO medications. It is reported that the patient slept for 7+ hours last evening. Pt was offered PO medications this morning by staff, which she declined. This provider was present to observe administration of morning medications. Pt was offered and refused scheduled dose of PO risperidone. Order for medication over objection in place, and patient received haloperidol 10mg, lorazepam 2mg, and benztropine 2mg via IM injections. Pt was already laying in bed, but did require physical hold to ensure safety of patient and staff during medication administration, as patient continues to be unable to reliably follow directions due to level of disorganization. Pt was physically held from 11:01:55 to 11:03:19 to deliver medications. Two security officers present, but only one was necessary to assist staff with securing patient's position during physical hold. Staff did report patient did not require as much physical intervention to complete medication administration when compared to previous holds. Visual examination of patient s/p injection was completed at 11:10 - pt demonstrated considerable thought blocking and did not respond verbally to many questions asked by this provider. Pt was observed to be freely and fluidly moving all extremities to a mild degree, as she continued to lay in bed during our conversation. Pt remains disorganized, but did not report any physical complaints following physical hold. Patient's only comment to this provider was a delayed response to being asked if she needed anything presently. Pt states "forgiveness." She was asked who she feels she needs forgiveness from, and she stated "Carlos." Pt was reassured that she has done nothing to our staff and that we are all trying to help her. This provider attempted to verbally comfort the patient, but she no longer engaged in conversation. Pt was informed to let staff know of any additional concerns today. Physical Exam Psychiatric Orientation: alert and + guarded (uncooperative, very little participation in interview ) Apperance: appropriately dressed (casually), + disheveled and appeared stated age Eye Contact: + fair eye contact (prolonged staring ) Motor Behavior: no abnormal motor movements (observed while laying in bed ); n EPS (no apparent EPS following IM injection ) Pt was unable to follow prompts to better assess motor function following IM medication administration. Pt was observed to intermittently be moving all extremities freely and fluidly. Speech: + abnormal rate/rhythm/volume of speech (very delay responses, very limited engagement in conversation) Affect: + flat affect and + constricted affect becoming tearful and anxious intermittently Thought Process: + thought blocking, + tangential thought process and + perseveration Thought Content: + preoccupation (pentecostal), + paranoid, + delusions and + guilt (regularly asking for forgiveness) Hallucinations: it remains unclear if patient is responding to internal stimuli Cognition: + attention not intact and + language not intact Insight: + severely impaired insight Judgement: + severely impaired judgement Vital Signs (Past 24 Hours) Last Vital Signs Temp 36.9 C 10/20/19 08:10 Pulse 90 10/20/19 08:10 Resp 18 10/20/19 08:10 BP 120/70 10/20/19 08:10 Pulse Ox 100 10/20/19 06:26 Results & Data ([facility]) Current Inpatient Medications Current Inpatient Medications: Current Inpatient Medications Acetaminophen (Acetaminophen 325 Mg Tab) 650 mg PO Q4H PRN PRN Reason: Headache or Minor Fever Stop: 11/19/19 06:43 Last Admin: 10/20/19 18:30 Dose: 650 mg Documented by: Al Hydrox/Mg Hydrox/Simethicone (Aluminum/Magnesium Susp 30 Ml Udc) 30 ml PO Q4H PRN PRN Reason: GI Upset Stop: 11/19/19 06:43 Ascorbic Acid (Ascorbic Acid 500 Mg Tab) 1,000 mg PO QAM DANUTA Stop: 10/27/19 08:59 Last Admin: 10/24/19 10:12 Dose: Not Given Documented by: Benztropine Mesylate (Benztropine Mesylate 0.5 Mg Tab) 0.5 mg PO Q6 PRN PRN Reason: Muscle Spasm Stop: 11/19/19 12:28 Last Admin: 10/23/19 16:26 Dose: 0.5 mg Documented by: Benztropine Mesylate (Benztropine Mesylate 1 Mg/Ml 2 Ml Amp) 2 mg IM BID PRN PRN Reason: refusal of PO risperidone Stop: 11/23/19 08:58 Last Admin: 10/24/19 14:44 Dose: 2 mg Documented by: Bismuth Subsalicylate (Bismuth Subsalicylate Per Ml Omnicell Charge) 15 ml PO PRN PRN PRN Reason: Loose Stool Stop: 11/19/19 06:43 Haloperidol Lactate (Haloperidol Lactate 5 Mg/Ml 1 Ml Vial) 5 mg IM Q6H PRN PRN Reason: Agitation/Severe Psychosis Stop: 11/23/19 13:14 Haloperidol Lactate (Haloperidol Lactate 5 Mg/Ml 1 Ml Vial) 10 mg IM BID PRN PRN Reason: Refusal of PO risperidone Stop: 11/23/19 13:14 Last Admin: 10/24/19 14:44 Dose: 10 mg Documented by: Hydroxyzine HCl (Hydroxyzine Hcl 25 Mg Tab) 50 mg PO HSZ PRN PRN Reason: Insomnia Stop: 11/19/19 06:43 Last Admin: 10/23/19 20:06 Dose: 50 mg Documented by: Hydroxyzine HCl (Hydroxyzine Hcl 25 Mg Tab) 25 mg PO Q4H PRN PRN Reason: Anxiety Stop: 11/19/19 06:43 Lorazepam (Lorazepam 1 Mg Tab) 1 mg PO Q6 PRN PRN Reason: Anxiety/Agitation Stop: 11/19/19 12:28 Last Admin: 10/23/19 20:06 Dose: 1 mg Documented by: Lorazepam (Lorazepam 1 Mg Tab) 2 mg PO BID [facility] Stop: 11/23/19 20:59 Last Admin: 10/24/19 21:47 Dose: Not Given Documented by: Lorazepam (Lorazepam 2 Mg/Ml Vial (Im Use)) 2 mg IM BID PRN PRN Reason: PO med refusal Stop: 11/23/19 09:00 Magnesium Hydroxide (Magnesium Hydroxide Susp 30 Ml Udc) 30 ml PO DAILY PRN PRN Reason: Constipation Stop: 11/19/19 06:43 Multivitamins (Multivitamin Tab) 1 tab PO QAM DANUTA Stop: 11/19/19 08:59 Last Admin: 10/24/19 10:12 Dose: Not Given Documented by: Risperidone (Risperidone Odt 1mg) 1 mg PO Q6 PRN PRN Reason: Anxiety/Agitation Stop: 11/19/19 18:29 Last Admin: 10/22/19 16:32 Dose: 1 mg Documented by: Risperidone (Risperidone Odt 1mg) 2 mg PO BID@0900,1500 [facility] Stop: 11/23/19 14:59 Last Admin: 10/24/19 14:40 Dose: Not Given Documented by: Sodium Chloride (Sodium Chloride 0.65% Na Soln 45 Ml ([place])) 1 - 2 sprays NA PRN PRN PRN Reason: Nasal Dryness/Congestion Stop: 11/19/19 06:43 Mental Health & Subst Abuse Tx Therapist Name of Therapist: None Logger Name of Logger: None Post Discharge Appointments Primary Care Physician Name Of Family Doctor: [facility] [place] Primary Care Provider Appointment Comment: [facility] Contact Information Discharge Discharge Address: Local Address: [address], [address], [place], [place] Contact Information Comment: Permanent [address]: [address] [place] [id number] (1) Psychotic disorder Psychosis type: unspecified psychosis type Qualified Code(s): F29 - Unspecified psychosis not due to a substance or known physiological condition
[2019-10-25] MEDS: BENZTROPINE MESYLATE 1 MG/ML 2 ML AMP IM PRN ×2 (11:02→15:31)
[2019-10-25] MEDS: LORazepam 2 MG/ML VIAL (IM USE) IM PRN (11:02)
[2019-10-25] MEDS: HALOPERIDOL LACTATE 5 MG/ML 1 ML VIAL IM PRN ×2 (11:02→15:31)
[2019-10-25] MEDS: LORazepam 1 MG TAB PO SCH (11:17)
[2019-10-25] MEDS: ASCORBIC ACID 500 MG TAB PO SCH (11:17)
[2019-10-25] MEDS: RISPERIDONE ODT 1MG PO SCH ×2 (11:17→16:45)
[2019-10-25] MEDS: MULTIVITAMIN TAB PO SCH (11:17)
--- NOTE | 2019-10-25 17:58 | Communication Note ---
Date of Service: October 25, 2019 Pt was offered scheduled PO risperidone this afternoon and refused. IM medications order to be given for refusal of PO medications. Two security offi cers present to offer assistance, as physical hold was anticipated. Pt did require hands on assistance to ensure appropriate positioning and ensure safety of patient/staff while IM medications were being administered. Physical hold was initiated at 15:30, with hold lasting 1 minute and 30 seconds. This provider was observing in the periphery while physical hold occurred. Pt was visualized by this provider shortly after the physical hold ~15:35. Pt was observed to be tearful. She frequently repeated that "you guys think I'm an alien" and remains focused on the belief that she is and she needs to find out "what's inside of me." Pt has continued to verbalize delusional thought content to staff throughout the day. Although tearful and still appearing psychotic, she is able to verbalize that she has "classes and responsibilities" and that she needs to get back to school. She spends a decent amount of time discussing her desire to "get out of the [place] and go to college, to show people they can too.' Pt was reassured that we are here to help her return to stable mood and thought processes that will allow her to continue her schoolwork if she desires. She continues to be tearful, states she does not want any additional medications, and likens herself to a "lab rat being injected with all of these things so you can study me." Pt states "I'm just trying to do the right thing." This provider did observe patient for a prolonged period during this conversation. She did not appear to have any physical difficulties and was freely moving her upper extremities. She is not verbalizing any physical discomfort or pain. Pt was encouraged to seek staff assistance for any additional concerns. She was able to ask a few questions related to her 303 hearing tomorrow and staff is planning to provide her with the number of her nutritionist public health, as requested.
[2019-10-26] MEDS: ASCORBIC ACID 500 MG TAB PO SCH (09:50)
[2019-10-26] MEDS: LORazepam 1 MG TAB PO SCH ×2 (09:50→14:52)
[2019-10-26] MEDS: RISPERIDONE ODT 1MG PO SCH ×2 (09:50→14:53)
[2019-10-26] MEDS: MULTIVITAMIN TAB PO SCH (09:50)
[2019-10-26] MEDS: HALOPERIDOL LACTATE 5 MG/ML 1 ML VIAL IM PRN ×2 (09:53→14:56)
[2019-10-26] MEDS: BENZTROPINE MESYLATE 1 MG/ML 2 ML AMP IM PRN ×2 (09:53→14:57)
[2019-10-26] MEDS: LORazepam 2 MG/ML VIAL (IM USE) IM PRN ×2 (09:53→14:56)
--- NOTE | 2019-10-26 12:06 | Psychiatric Progress Note ---
Date of Service October 26, 2019 Impression / Recommendations Impression 19 yo female with no prior psych hx presents with acute onset of severe thought disorganization with blocking in just the past 1-2 days. Differential mainly includes first break psychosis due to thought disorder, atypical virginia, or substance induced psychotic disorder. She has been resistant to medication and is now on a 302 commitment after signing a 72 hour notice. By the third day of the hospitalization the patient's condition had not improved at all. In fact, staff members felt that she was, if anything, becoming more disorganized and more psychotic. She has a frightened almost frantic look on her face much of the time that she calls out "Carlos" and "I am yours." Her tox screen at admission was positive for marijuana, but it seems quite unlikely that the use of marijuana, even at larger amounts, would explain the ongoing presentation. It is, of course, possible that the marijuana that she had been using was "laced" with drugs such as PCP, or synthetic drugs that may not have been detectable on testing. Medications over objection have been found to be medically necessary by 2 psychiatrist, and medications over objection have been ordered. She has required IM injections for medication of objections. (1) Psychotic disorder: 10/19--The patient was [facility] on q15 min checks (behavioral with suicide precautions) for safety. The patient will participate in group, recreational, and milieu therapies and will be offered additional individual and family sessions as clinically appropriate. She is not able to fully understand risks/benefits of antipsychotic medications at this time and will be offered Risperdal 0.5 mg BID today with likely titration. Additional Risperdal and Ativan prn agitation as appears quite paranoid. Fasting labs in am as likely to be discharged on atypical. 10/20--tolerating medications so far, need to increase Risperdal to 1 mg BID and Ativan prn to 1 mg for severity of symptoms. Consider switch to Zyprexa if remains sleepless. 302 completed. Will reattempt fasting labs in am as patient ate prior to draw. 10/21--will add standing Ativan 1 mg BID (2nd dose with evening meal) given catatonic features and given lack of sleep and possible need for IM prep, hold Risperdal tonight in favor of 1 time dose of Zyprexa 5 mg hs. If benefit, primary team can decide which atypical to continue with tomorrow. It is my medical opinion that Isra is unable to care for herself outside of the hospital setting and that worsening of her psychosis or significant harm to self or others is likely within the next 30 days if she does not receive antipsychotic medication. This is necessary even over her objection to restore functioning to participate in care and treatment planning. 10/22 -Zyprexa 5 mg at bedtime last evening seem not to have been particularly effective. We resumed risperidone at a higher dose today at risperidone 2 mg twice a day. In addition, medications over objection were ordered. -The patient continues to resist most oral medications, or will only take oral medications with a great deal of active encouragement and support from staff. Medications over objection will be haloperidol 5 mg IM twice daily for refusal of p.o. risperidone. -What we are seeing may be a first episode of virginia, but the presentation is atypical and the onset seems to be quite rapid. While it seems unlikely that marijuana alone could explain the current clinical presentation, we are concerned that perhaps the patient has taken a synthetic drug with the marijuana or has used phencyclidine (PCP). The plan is to attempt to acidify the patient's urine to help clear drug such as PCP. Accordingly, ascorbic acid (vitamin C) has been ordered 1000 mg daily, starting tomorrow has been ordered. 10/23 - Orders adjusted as patient has required medications over objection. Pt received haloperidol 10mg, lorazepam 1mg, and benztropine 2mg IM. Scheduled oral medication, which patient has been refusing, was adjusted to 2mg BID of risperidone ODT as of yesterday. Will continue BID dosing, with IM's for medication refusal. - Orders for prn doses of oral risperidone, as well as IM haloperidol and lorazepam ordered for severe psychosis/agitation. - Pt continues to occupy DANIELLE and remains on a MNPR 10/24 - Continue orders as above - patient required IM medications over objection this morning due to refusal of PO risperidone - Dose of IM lorazepam was titrated to 2mg BID, due to catatonia being included in differential diagnosis - Pt continues to require the DANIELLE for ongoing psychosis with associated behavioral concerns, she remains on MNPR 10/25 -The patient remains floridly psychotic, but today showing some signs of improvement. She is occasionally able to have a brief reality based exchange, although her answers are generally given 1 or 2 words and there may be a delay of 30 to 40 seconds before she responds. -Today, the patient was given medication over objection, but did not require manual hold and trusted staff well enough to cooperate. -She has appeared on several occasions as if she is considering whether to take her antipsychotic medications orally and given her marketed delay in response times we have been giving her several minutes to consider taking the medication and waiting until she indicates that she is declining. -The question of whether the patient's mother should be permitted to visit the patient was considered this morning by the team. It was agreed that it might be better to wait until the patient is more organized. I asked the patient if she would like a visit from her mother, and after the question was repeated several times over several minutes, the patient did not respond. Inventory Assets Strengths: intelligence, family support Needs: improve insight into her condition Risk Factors Assessment Do You Have Access To A Gun?: No Previous Attempt: No Previous Psychiatric Hospitalization: No Protective Factors Assessment Employed: No Supportive Family: Yes Interval History Identifying Information ISRA GARCIA is a 19-year-old F, [employer] Senior from [employer] [facility], has no prior psych history and was admitted on 10/20/19 05:34 on a 201 voluntary commitment for disorganized behavior/psychosis. Chief Complaint "Forgive me. I forgive you." Review of Systems Sleep Information Total Hours of Sleep: 11.5 Sleep Comments: pt appeared to sleep 4.5 hr during evening shift. pt on q-15 minute checks Meal Information Percent Meal Consumed - Breakfast: 0 Percent Meal Consumed - Lunch: 10 Percent Meal Consumed - Dinner: 0 Nutrition Comment: Patient delusional - per shift report Subjective Subjective Patient was seen & assessed and interval progress reviewed with treatment team. I met individually with the patient in order to assess her current mental status, evaluate her response to treatment, attempt to coordinate any changes in her treatment regimen with the patient, assessed the patient immediately prior to a scheduled involuntary commitment hearing (303); and address issues, questions and concerns that may arise. The patient stared at me for quite some time before responding to any questions. She then dropped to her knees and ask me to forgive her. I explained that I was her psychiatrist today, and she stood up and said, "I forgive you. Forgive me." She has required a great deal of attention from staff to encourage her to eat and drink, at least at times. She has indicated that she suspects that fluids have been tampered with or "spiked." However, there is some evidence of improvement today and that the patient was able to tell me that she goes to "[employer]," and, at one point, she told me that she was afraid that she would not be able to graduate next spring, as hoped. Although these flashes of reality were short lived, they represent a significant improvement over the course of the past several days. Most of our encounter consisted of me offering the patient reassurances and promising her that we are working hard to get her well as soon as possible. She was invited to please cooperate fully with the treatment team, and, later in the morning, she did voluntarily allow us to administer a dose of Haldol IM after she declined to take risperidone by mouth. The patient was asked if she would like to attend her 303 hearing this morning. It was explained that the hearing was to decide whether she would need to stay in the hospital for a longer period of time. The patient stared for 30 or 40 seconds, and then shook her head no. The petition for 303 was granted this morning at her involuntary commitment hearing. Physical Exam Psychiatric Orientation: + not oriented x 3 When asked to state her name, the patient does not respond after several attempts. However, as noted above, she later correctly acknowledge that she is a student at [employer] and was slated to graduate next spring. She also was able to tell me what her college major is. Accordingly, my assumption is that she is probably more oriented than we are able to confirm, and the issue is that she is either thought blocking or otherwise unable to answer questions regarding orientation. Apperance: appropriately dressed, appropriately groomed and appeared stated age Eye Contact: + fair eye contact Motor Behavior: + psychomotor retardation The patient stares at the examiner, and then often to space. Cogwheel rigidity is not noted. The patient's speech is rarely spontaneous and often her communication is limited to gestures, or 1 or 2 words. At times the patient appears flat, but at other times she seems to register fear. The patient does not respond to questions regarding her mood. Thought Process: + thought blocking and + perseveration Thought Content: + delusions The patient does not respond to questions regarding self-harm. However, the patient has not engaged in any conscious form of self-harm. Safety concerns are primarily related to her grossly disorganized behavior and her assertions that her food and drink may have been tampered with The patient does not respond to questions regarding thoughts of causing physical harm to the person or property of others. However, the patient has not recently engaged in any conscious aggressive behaviors directed towards others. Hallucinations: + auditory hallucinations The patient does appear to be responding to internal stimuli. For example, she may look off into an empty space in a room and speak, as if speaking to an unseen person. Cognitive testing is not possible. However, as noted above, the patient did today reveal the name of her major, and she also correctly identified where she goes to school, and, further, correctly stated when it was that she Estimated Intelligence: + above average estimated intelligence Insight: + severely impaired insight Judgement: + severely impaired judgement Vital Signs (Past 24 Hours) Last Vital Signs Temp 36.9 C 10/25/19 21:16 Pulse 90 10/25/19 16:53 Resp 18 10/25/19 16:53 BP 113/74 10/25/19 16:53 Pulse Ox 100 10/20/19 06:26 Results & Data (U) Current Inpatient Medications Current Inpatient Medications: Current Inpatient Medications Acetaminophen (Acetaminophen 325 Mg Tab) 650 mg PO Q4H PRN PRN Reason: Headache or Minor Fever Stop: 11/19/19 06:43 Last Admin: 10/20/19 18:30 Dose: 650 mg Documented by: Al Hydrox/Mg Hydrox/Simethicone (Aluminum/Magnesium Susp 30 Ml Udc) 30 ml PO Q4H PRN PRN Reason: GI Upset Stop: 11/19/19 06:43 Ascorbic Acid (Ascorbic Acid 500 Mg Tab) 1,000 mg PO QAM DANUTA Stop: 10/27/19 08:59 Last Admin: 10/26/19 09:50 Dose: Not Given Documented by: Benztropine Mesylate (Benztropine Mesylate 0.5 Mg Tab) 0.5 mg PO Q6 PRN PRN Reason: Muscle Spasm Stop: 11/19/19 12:28 Last Admin: 10/23/19 16:26 Dose: 0.5 mg Documented by: Benztropine Mesylate (Benztropine Mesylate 1 Mg/Ml 2 Ml Amp) 2 mg IM BID PRN PRN Reason: refusal of PO risperidone Stop: 11/23/19 08:58 Last Admin: 10/26/19 09:53 Dose: 2 mg Documented by: Bismuth Subsalicylate (Bismuth Subsalicylate Per Ml Omnicell Charge) 15 ml PO PRN PRN PRN Reason: Loose Stool Stop: 11/19/19 06:43 Haloperidol Lactate (Haloperidol Lactate 5 Mg/Ml 1 Ml Vial) 5 mg IM Q6H PRN PRN Reason: Agitation/Severe Psychosis Stop: 11/23/19 13:14 Haloperidol Lactate (Haloperidol Lactate 5 Mg/Ml 1 Ml Vial) 10 mg IM BID PRN PRN Reason: Refusal of PO risperidone Stop: 11/23/19 13:14 Last Admin: 10/26/19 09:53 Dose: 10 mg Documented by: Hydroxyzine HCl (Hydroxyzine Hcl 25 Mg Tab) 50 mg PO HSZ PRN PRN Reason: Insomnia Stop: 11/19/19 06:43 Last Admin: 10/23/19 20:06 Dose: 50 mg Documented by: Hydroxyzine HCl (Hydroxyzine Hcl 25 Mg Tab) 25 mg PO Q4H PRN PRN Reason: Anxiety Stop: 11/19/19 06:43 Lorazepam (Lorazepam 1 Mg Tab) 1 mg PO Q6 PRN PRN Reason: Anxiety/Agitation Stop: 11/19/19 12:28 Last Admin: 10/23/19 20:06 Dose: 1 mg Documented by: Lorazepam (Lorazepam 2 Mg/Ml Vial (Im Use)) 2 mg IM BID PRN PRN Reason: PO med refusal Stop: 11/23/19 09:00 Last Admin: 10/26/19 09:53 Dose: 2 mg Documented by: Lorazepam (Lorazepam 1 Mg Tab) 2 mg PO BID@0900,1500 [facility] Stop: 11/25/19 08:59 Last Admin: 10/26/19 09:50 Dose: Not Given Documented by: Magnesium Hydroxide (Magnesium Hydroxide Susp 30 Ml Udc) 30 ml PO DAILY PRN PRN Reason: Constipation Stop: 11/19/19 06:43 Multivitamins (Multivitamin Tab) 1 tab PO QAM DANUTA Stop: 11/19/19 08:59 Last Admin: 10/26/19 09:50 Dose: Not Given Documented by: Risperidone (Risperidone Odt 1mg) 1 mg PO Q6 PRN PRN Reason: Anxiety/Agitation Stop: 11/19/19 18:29 Last Admin: 10/22/19 16:32 Dose: 1 mg Documented by: Risperidone (Risperidone Odt 1mg) 2 mg PO BID@0900,1500 DANUTA Stop: 11/23/19 14:59 Last Admin: 10/26/19 09:50 Dose: Not Given Documented by: Sodium Chloride (Sodium Chloride 0.65% Na Soln 45 Ml (Desha)) 1 - 2 sprays NA PRN PRN PRN Reason: Nasal Dryness/Congestion Stop: 11/19/19 06:43 Mental Health & Subst Abuse Tx Therapist Name of Therapist: None [employer] Supervisor Name of [employer] Supervisor: None Post Discharge Appointments Primary Care Physician Name Of Family Doctor: MAYITO Arminda Primary Care Provider Appointment Comment: [facility] Contact Information Discharge Discharge Address: Local Address: [address], [address], [place], [place] Contact Information Comment: Permanent [address] [address] [place] [id number] (1) Psychotic disorder Psychosis type: unspecified psychosis type Qualified Code(s): F29 - Unspecified psychosis not due to a substance or known physiological condition
[2019-10-27] MEDS: RISPERIDONE ODT 1MG PO SCH ×2 (10:17→20:58)
[2019-10-27] MEDS: LORazepam 1 MG TAB PO SCH ×2 (10:17→20:58)
[2019-10-27] MEDS: MULTIVITAMIN TAB PO SCH (10:17)
[2019-10-27] MEDS: BENZTROPINE MESYLATE 1 MG/ML 2 ML AMP IM PRN ×2 (10:18→21:01)
[2019-10-27] MEDS: HALOPERIDOL LACTATE 5 MG/ML 1 ML VIAL IM PRN ×2 (10:19→21:00)
[2019-10-27] MEDS: LORazepam 2 MG/ML VIAL (IM USE) IM PRN ×2 (10:19→21:01)
--- NOTE | 2019-10-27 12:39 | Psychiatric Progress Note ---
Date of Service October 27, 2019 Impression / Recommendations Impression 19 yo female with no prior psych hx presents with acute onset of severe thought disorganization with blocking in just the past 1-2 days. Differential mainly includes first break psychosis due to thought disorder, atypical virginia, or substance induced psychotic disorder. She has been resistant to medication and is now on a 302 commitment after signing a 72 hour notice. By the third day of the hospitalization the patient's condition had not improved at all. In fact, staff members felt that she was, if anything, becoming more disorganized and more psychotic. She has a frightened almost frantic look on her face much of the time that she calls out "Carlos" and "I am yours." Her tox screen at admission was positive for marijuana, but it seems quite unlikely that the use of marijuana, even at larger amounts, would explain the ongoing presentation. It is, of course, possible that the marijuana that she had been using was "laced" with drugs such as PCP, or synthetic drugs that may not have been detectable on testing. Medications over objection have been found to be medically necessary by 2 psychiatrist, and medications over objection have been ordered. She has required IM injections for medication of objections. (1) Psychotic disorder: 10/19--The patient was admitted to the [facility]) on q15 min checks (behavioral with suicide precautions) for safety. The patient will participate in group, recreational, and milieu therapies and will be offered additional individual and family sessions as clinically appropriate. She is not able to fully understand risks/benefits of antipsychotic medications at this time and will be offered Risperdal 0.5 mg BID today with likely titration. Additional Risperdal and Ativan prn agitation as appears quite paranoid. Fasting labs in am as likely to be discharged on atypical. 10/20--tolerating medications so far, need to increase Risperdal to 1 mg BID and Ativan prn to 1 mg for severity of symptoms. Consider switch to Zyprexa if remains sleepless. 302 completed. Will reattempt fasting labs in am as patient ate prior to draw. 10/21--will add standing Ativan 1 mg BID (2nd dose with evening meal) given catatonic features and given lack of sleep and possible need for IM prep, hold Risperdal tonight in favor of 1 time dose of Zyprexa 5 mg hs. If benefit, primary team can decide which atypical to continue with tomorrow. It is my medical opinion that Isra is unable to care for herself outside of the hospital setting and that worsening of her psychosis or significant harm to self or others is likely within the next 30 days if she does not receive antipsychotic medication. This is necessary even over her objection to restore functioning to participate in care and treatment planning. 10/22 -Zyprexa 5 mg at bedtime last evening seem not to have been particularly effective. We resumed risperidone at a higher dose today at risperidone 2 mg twice a day. In addition, medications over objection were ordered. -The patient continues to resist most oral medications, or will only take oral medications with a great deal of active encouragement and support from staff. Medications over objection will be haloperidol 5 mg IM twice daily for refusal of p.o. risperidone. -What we are seeing may be a first episode of virginia, but the presentation is atypical and the onset seems to be quite rapid. While it seems unlikely that marijuana alone could explain the current clinical presentation, we are concerned that perhaps the patient has taken a synthetic drug with the marijuana or has used phencyclidine (PCP). The plan is to attempt to acidify the patient's urine to help clear drug such as PCP. Accordingly, ascorbic acid (vitamin C) has been ordered 1000 mg daily, starting tomorrow has been ordered. 10/23 - Orders adjusted as patient has required medications over objection. Pt received haloperidol 10mg, lorazepam 1mg, and benztropine 2mg IM. Scheduled oral medication, which patient has been refusing, was adjusted to 2mg BID of risperidone ODT as of yesterday. Will continue BID dosing, with IM's for medication refusal. - Orders for prn doses of oral risperidone, as well as IM haloperidol and lorazepam ordered for severe psychosis/agitation. - Pt continues to occupy DANIELLE and remains on a MNPR 10/24 - Continue orders as above - patient required IM medications over objection this morning due to refusal of PO risperidone - Dose of IM lorazepam was titrated to 2mg BID, due to catatonia being included in differential diagnosis - Pt continues to require the DANIELLE for ongoing psychosis with associated behavioral concerns, she remains on MNPR 10/25 -The patient remains floridly psychotic, but today showing some signs of improvement. She is occasionally able to have a brief reality based exchange, although her answers are generally given 1 or 2 words and there may be a delay of 30 to 40 seconds before she responds. -Today, the patient was given medication over objection, but did not require manual hold and trusted staff well enough to cooperate. -She has appeared on several occasions as if she is considering whether to take her antipsychotic medications orally and given her marketed delay in response times we have been giving her several minutes to consider taking the medication and waiting until she indicates that she is declining. -The question of whether the patient's mother should be permitted to visit the patient was considered this morning by the team. It was agreed that it might be better to wait until the patient is more organized. I asked the patient if she would like a visit from her mother, and after the question was repeated several times over several minutes, the patient did not respond. 10/26 - the patient continues to show thought blocking wtih delay in speech and poverty of speech, and absence of spontaneous speech. She is now making some sensical statements such as she is aware she is at the hospital and perceives the staff is trying to help her, she is not resisting medication even stating she wants to take medication but remains too disorganized to move her hand with the pill to her mouth, so is receiving IM injections without a physical hold. Although not substantial, her ability to be less spontaneously delusional, offer small sentences of sensical conversation, acceptance of medications are subtle signs of improvement. It is unclear if there is residual element of catatonia as she is receiving ativan 1mg bid in her IM meds - vitals are minimal lately, will check and watch for autonomic instability, but no echolalia, no echopraxia, no negativism seen, no purposeless movement and not posturing, but the degree of her disorganization and flatness and odd manner of relating to her body are suspicious. Will monitor for now and continue with offering risperdal 2mg Mtab 2mg po bid andif unable to take or refuses then ijections IM over objection wtih haldol 10mg/cogentin 2mg bid but increase the ativan to 2mg po bid to target any residual catatonia watching to assure she is not sedated. COntinue to support po intake wtih packaged food, and make availalbe video visist with mother until mother can visit. COntinue MNPR and DANIELLE area Inventory Assets Strengths: intelligence, family support Needs: improve insight into her condition Risk Factors Assessment Do You Have Access To A Gun?: No Previous Attempt: No Previous Psychiatric Hospitalization: No Protective Factors Assessment Employed: No Supportive Family: Yes Interval History Identifying Information ISRA GARCIA is a 19-year-old F, [employer] Senior from [facility], has no prior psych history and was admitted on 10/20/19 05:34 on a 201 voluntary commitment for disorganized behavior/psychosis. Chief Complaint "I am in the psyhiatric....". Review of Systems Sleep Information Total Hours of Sleep: 8.5 Sleep Comments: pt appeared to sleep 4.5 hr during evening shift. pt on q-15 minute checks Meal Information Percent Meal Consumed - Breakfast: 0 Percent Meal Consumed - Lunch: 0 Percent Meal Consumed - Dinner: 0 Nutrition Comment: Pt is sleeping Subjective Subjective Patient was seen & assessed and interval progress reviewed with nursing and social work. THe patient per staff is saying she wants to take the medication but appears to be too disorganized to put the pill from her hand into her mouth, so she is requiring injection of medication but is not requiring any hold to take the IM injections Wednesday 10/25, nor today 10/26. She is described as thought blocked and having trouble making sense of moving her body. She did have a video call with her mother and seemed to have some improvement in her ability to converse and seemed slightly less blocked telling her mother what she needed form her bedroom in [facility] that mother can bring with her upcoming visit. She continues to have disorganized speech and behaviors and delusional thoughts, e.g. thought her OJ was spiked, and thought that her food was poisoned. However she is not eating and drinking some [facility] pre-packaged options such as bottled water and packaged crackers and applesauce. SHe did crumble a banana in her bed today seeming not to know what to do with it. She smeared water over her arms as well in a purposeless way. Per nursing, no echolalia, no echopraxia, no posturing, no excitable purposeless movement. Met with patient in her room, she remained reclined in the bed with the head elevated. When I asked if I could come in to talk she nodded affirmatively. When asked where she was, she stated she was in the "Psychiatric..." and when asked what type of building we were in she asked "what do you mean?" I gave a menu of "grocery store, school or hospital" and she was able to pick "hospital...people are trying to help me get better." She denies having side effects from the medication. .She denies stiffness in her arms, jaw, tongue or back, then holds her arm up looking at it for some time and bending it. She states she feels weak. SHe declines for provider to examine her arm by touching it. She denies feeling paranoid, then asks provider's name. She then is silent for a long time. When asked she states she hears voices of people laughing at her but states "I am not mad, I just want people to see things the way I see it." with significant delay she later states she wants help getting back to school. She denies physical concerns other than noted above Physical Exam Psychiatric Orientation: alert and oriented x 3 Apperance: appropriately dressed and appropriately groomed Eye Contact: + fair eye contact Motor Behavior: + psychomotor retardation; no psychomotor agitation, n EPS and n akathisia she is slowed in her movements, looks at her arm when asked about stiffness and moves it back and forth and examines it visually while it remains extended as if captivated by it for 30-60seconds. No other purposeless movements, no posturing, no echopraxia. slowed, poverty of spontaneous speech, will answer questions with a 30 second delay, with slow deliberate rate devoid of expression/intonation Affect: + flat affect vacant, absence quality, does not answer about her mood when asked Thought Process: + thought blocking and + looseness of associations (at times answers questions in non-sensical fashion talking about internet); thought process not incoherent, no word salad and no clanging brings up that she was on the internet searching what it meant to be human, and may have opened a [employer] account recently but details and content are vague she seems unable to share more when asked and is silent and staring Suicidal Thoughts: denies suicidal thoughts Hallucinations: + auditory hallucinations poor recall due to psychosis vocab is consistent with level of education, but poverty of thought makes it hard to assess intellect further Insight: + fair insight Judgement: + fair judgement Vital Signs (Past 24 Hours) Last Vital Signs Temp 36.8 C 10/26/19 20:00 Pulse 90 10/25/19 16:53 Resp 18 10/25/19 16:53 BP 113/74 10/25/19 16:53 Pulse Ox 100 10/20/19 06:26 Results & Data ([facility]) Current Inpatient Medications Current Inpatient Medications: Current Inpatient Medications Acetaminophen (Acetaminophen 325 Mg Tab) 650 mg PO Q4H PRN PRN Reason: Headache or Minor Fever Stop: 11/19/19 06:43 Last Admin: 10/20/19 18:30 Dose: 650 mg Documented by: Al Hydrox/Mg Hydrox/Simethicone (Aluminum/Magnesium Susp 30 Ml Udc) 30 ml PO Q4H PRN PRN Reason: GI Upset Stop: 11/19/19 06:43 Benztropine Mesylate (Benztropine Mesylate 0.5 Mg Tab) 0.5 mg PO Q6 PRN PRN Reason: Muscle Spasm Stop: 11/19/19 12:28 Last Admin: 10/23/19 16:26 Dose: 0.5 mg Documented by: Benztropine Mesylate (Benztropine Mesylate 1 Mg/Ml 2 Ml Amp) 2 mg IM BID PRN PRN Reason: refusal of PO risperidone Stop: 11/23/19 08:58 Last Admin: 10/27/19 10:18 Dose: 2 mg Documented by: Bismuth Subsalicylate (Bismuth Subsalicylate Per Ml Omnicell Charge) 15 ml PO PRN PRN PRN Reason: Loose Stool Stop: 11/19/19 06:43 Haloperidol Lactate (Haloperidol Lactate 5 Mg/Ml 1 Ml Vial) 5 mg IM Q6H PRN PRN Reason: Agitation/Severe Psychosis Stop: 11/23/19 13:14 Haloperidol Lactate (Haloperidol Lactate 5 Mg/Ml 1 Ml Vial) 10 mg IM BID PRN PRN Reason: Refusal of PO risperidone Stop: 11/23/19 13:14 Last Admin: 10/27/19 10:19 Dose: 10 mg Documented by: Hydroxyzine HCl (Hydroxyzine Hcl 25 Mg Tab) 50 mg PO HSZ PRN PRN Reason: Insomnia Stop: 11/19/19 06:43 Last Admin: 10/23/19 20:06 Dose: 50 mg Documented by: Hydroxyzine HCl (Hydroxyzine Hcl 25 Mg Tab) 25 mg PO Q4H PRN PRN Reason: Anxiety Stop: 11/19/19 06:43 Lorazepam (Lorazepam 1 Mg Tab) 1 mg PO Q6 PRN PRN Reason: Anxiety/Agitation Stop: 11/19/19 12:28 Last Admin: 10/23/19 20:06 Dose: 1 mg Documented by: Lorazepam (Lorazepam 2 Mg/Ml Vial (Im Use)) 2 mg IM BID PRN PRN Reason: PO med refusal Stop: 11/23/19 09:00 Last Admin: 10/27/19 10:19 Dose: 2 mg Documented by: Lorazepam (Lorazepam 1 Mg Tab) 2 mg PO BID@0900,1500 [facility] Stop: 11/25/19 08:59 Last Admin: 10/27/19 10:17 Dose: Not Given Documented by: Magnesium Hydroxide (Magnesium Hydroxide Susp 30 Ml Udc) 30 ml PO DAILY PRN PRN Reason: Constipation Stop: 11/19/19 06:43 Multivitamins (Multivitamin Tab) 1 tab PO QAM DANUTA Stop: 11/19/19 08:59 Last Admin: 10/27/19 10:17 Dose: Not Given Documented by: Risperidone (Risperidone Odt 1mg) 1 mg PO Q6 PRN PRN Reason: Anxiety/Agitation Stop: 11/19/19 18:29 Last Admin: 10/22/19 16:32 Dose: 1 mg Documented by: Risperidone (Risperidone Odt 1mg) 2 mg PO BID@0900,1500 [facility] Stop: 11/23/19 14:59 Last Admin: 10/27/19 10:17 Dose: Not Given Documented by: Sodium Chloride (Sodium Chloride 0.65% Na Soln 45 Ml ([place])) 1 - 2 sprays NA PRN PRN PRN Reason: Nasal Dryness/Congestion Stop: 11/19/19 06:43 Mental Health & Subst Abuse Tx Therapist Name of Therapist: None Evaluation Engineer Name of Evaluation Engineer: None Post Discharge Appointments Primary Care Physician Name Of Family Doctor: MAYITO Arminda Primary Care Provider Appointment Comment: [facility] Contact Information Discharge Discharge Address: Local Address: [address] [place] [address] [address], [place], [place] Contact Information Comment: Permanent Address: [id number] [facility], [place] [address] (1) Psychotic disorder Psychosis type: unspecified psychosis type Qualified Code(s): F29 - Unspecified psychosis not due to a substance or known physiological condition
[2019-10-28] MEDS: LORazepam 1 MG TAB PO SCH ×2 (09:11→14:22)
[2019-10-28] MEDS: MULTIVITAMIN TAB PO SCH (09:11)
[2019-10-28] MEDS: RISPERIDONE ODT 1MG PO SCH (09:12)
[2019-10-28] MEDS: HALOPERIDOL LACTATE 5 MG/ML 1 ML VIAL IM PRN ×2 (09:51→14:19)
[2019-10-28] MEDS: LORazepam 2 MG/ML VIAL (IM USE) IM PRN ×2 (09:51→14:19)
[2019-10-28] MEDS: BENZTROPINE MESYLATE 1 MG/ML 2 ML AMP IM PRN (09:52)
--- NOTE | 2019-10-28 12:39 | Psychiatric Progress Note ---
Date of Service October 28, 2019 Impression / Recommendations Impression 19 yo female with no prior psych hx presents with acute onset of severe thought disorganization with blocking in just the past 1-2 days. Differential mainly includes first break psychosis due to thought disorder, atypical virginia, or substance induced psychotic disorder. She has been resistant to medication and is now on a 302 commitment after signing a 72 hour notice. By the third day of the hospitalization the patient's condition had not improved at all. In fact, staff members felt that she was, if anything, becoming more disorganized and more psychotic. She has a frightened almost frantic look on her face much of the time that she calls out "Carlos" and "I am yours." Her tox screen at admission was positive for marijuana, but it seems quite unlikely that the use of marijuana, even at larger amounts, would explain the ongoing presentation. It is, of course, possible that the marijuana that she had been using was "laced" with drugs such as PCP, or synthetic drugs that may not have been detectable on testing. Medications over objection have been found to be medically necessary by 2 psychiatrist, and medications over objection have been ordered. She has required IM injections for medication of objections. (1) Psychotic disorder: 10/19--The patient was admitted to the [facility] ([facility]) on q15 min checks (behavioral with suicide precautions) for safety. The patient will participate in group, recreational, and milieu therapies and will be offered additional individual and family sessions as clinically appropriate. She is not able to fully understand risks/benefits of antipsychotic medications at this time and will be offered Risperdal 0.5 mg BID today with likely titration. Additional Risperdal and Ativan prn agitation as appears quite paranoid. Fasting labs in am as likely to be discharged on atypical. 10/20--tolerating medications so far, need to increase Risperdal to 1 mg BID and Ativan prn to 1 mg for severity of symptoms. Consider switch to Zyprexa if remains sleepless. 302 completed. Will reattempt fasting labs in am as patient ate prior to draw. 10/21--will add standing Ativan 1 mg BID (2nd dose with evening meal) given catatonic features and given lack of sleep and possible need for IM prep, hold Risperdal tonight in favor of 1 time dose of Zyprexa 5 mg hs. If benefit, primary team can decide which atypical to continue with tomorrow. It is my medical opinion that Isra is unable to care for herself outside of the hospital setting and that worsening of her psychosis or significant harm to self or others is likely within the next 30 days if she does not receive antipsychotic medication. This is necessary even over her objection to restore functioning to participate in care and treatment planning. 10/22 -Zyprexa 5 mg at bedtime last evening seem not to have been particularly effective. We resumed risperidone at a higher dose today at risperidone 2 mg twice a day. In addition, medications over objection were ordered. -The patient continues to resist most oral medications, or will only take oral medications with a great deal of active encouragement and support from staff. Medications over objection will be haloperidol 5 mg IM twice daily for refusal of p.o. risperidone. -What we are seeing may be a first episode of virginia, but the presentation is atypical and the onset seems to be quite rapid. While it seems unlikely that marijuana alone could explain the current clinical presentation, we are concerned that perhaps the patient has taken a synthetic drug with the marijuana or has used phencyclidine (PCP). The plan is to attempt to acidify the patient's urine to help clear drug such as PCP. Accordingly, ascorbic acid (vitamin C) has been ordered 1000 mg daily, starting tomorrow has been ordered. 10/23 - Orders adjusted as patient has required medications over objection. Pt received haloperidol 10mg, lorazepam 1mg, and benztropine 2mg IM. Scheduled oral medication, which patient has been refusing, was adjusted to 2mg BID of risperidone ODT as of yesterday. Will continue BID dosing, with IM's for medication refusal. - Orders for prn doses of oral risperidone, as well as IM haloperidol and lorazepam ordered for severe psychosis/agitation. - Pt continues to occupy DANIELLE and remains on a MNPR 10/24 - Continue orders as above - patient required IM medications over objection this morning due to refusal of PO risperidone - Dose of IM lorazepam was titrated to 2mg BID, due to catatonia being included in differential diagnosis - Pt continues to require the DANIELLE for ongoing psychosis with associated behavioral concerns, she remains on MNPR 10/25 -The patient remains floridly psychotic, but today showing some signs of improvement. She is occasionally able to have a brief reality based exchange, although her answers are generally given 1 or 2 words and there may be a delay of 30 to 40 seconds before she responds. -Today, the patient was given medication over objection, but did not require manual hold and trusted staff well enough to cooperate. -She has appeared on several occasions as if she is considering whether to take her antipsychotic medications orally and given her marketed delay in response times we have been giving her several minutes to consider taking the medication and waiting until she indicates that she is declining. -The question of whether the patient's mother should be permitted to visit the patient was considered this morning by the team. It was agreed that it might be better to wait until the patient is more organized. I asked the patient if she would like a visit from her mother, and after the question was repeated several times over several minutes, the patient did not respond. 10/26 - the patient continues to show thought blocking with delay in speech and poverty of speech, and absence of spontaneous speech. She is now making some sensical statements such as she is aware she is at the hospital and perceives the staff is trying to help her, she is not resisting medication even stating she wants to take medication but remains too disorganized to move her hand with the pill to her mouth, so is receiving IM injections without a physical hold. Although not substantial, her ability to be less spontaneously delusional, offer small sentences of sensical conversation, acceptance of medications are subtle signs of improvement. It is unclear if there is residual element of catatonia as she is receiving ativan 1mg bid in her IM meds - vitals are minimal lately, will check and watch for autonomic instability, but no echolalia, no echopraxia, no negativism seen, no purposeless movement and not posturing, but the degree of her disorganization and flatness and odd manner of relating to her body are suspicious. Will monitor for now and continue with offering risperdal 2mg Mtab 2mg po bid and if unable to take or refuses then injections IM over objection with haldol 10mg/cogentin 2mg bid but increase the ativan to 2mg po bid to target any residual catatonia watching to assure she is not sedated. Continue to support po intake with packaged food, and make available video visit with mother until mother can visit. Continue MNPR and DANIELLE area 10/27 - continue plan as above. she is showing slow subtle improvement as she has more moments of speech where she communicates her thoughts but is still far from her pre-morbid level of functioning, She is still unable to take po meds by her own volition. I will offer a challenge of ativan 1mg this afternoon will offer po, but may need to give IM to see if she is less blocked as in catatonic. Vitals are stable, risk is sedation which we will need to monitor. Continue to offer risperdal 2mg po bid m-tab with haldol/cogentin/ativan IM for refusal. Inventory Assets Strengths: intelligence, family support Needs: improve insight into her condition Risk Factors Assessment Do You Have Access To A Gun?: No Previous Attempt: No Previous Psychiatric Hospitalization: No Protective Factors Assessment Employed: No Supportive Family: Yes Interval History Identifying Information ISRA GARCIA is a 19-year-old F, [employer] Senior from [facility], has no prior psych history and was admitted on 10/20/19 05:34 on a 201 voluntary commitment for disorganized behavior/psychosis. Chief Complaint "Yes" (answering provider's request to come in and speak with her) Review of Systems Sleep Information Total Hours of Sleep: 10.75 Sleep Comments: pt appeared to sleep 4.5 hr during evening shift. pt on q-15 minute checks Meal Information Percent Meal Consumed - Breakfast: 30 Percent Meal Consumed - Lunch: 0 Percent Meal Consumed - Dinner: 0 Nutrition Comment: pt ate a banana and drank 1/4 of Powerade Subjective Subjective Patient was seen & assessed and interval progress reviewed with nursing and social work. Per staff patient had a good zoom meeting with mother and father yesterday, she seemed to be able to engage in a coherent fashion although not fully well. She ate an applause from a container with her father while he encouraged her through the zoom. Family noted pt likes powerade and so staff was able to get that to the floor and patient drank 2 through the course of the afternoon/evening. However not long after the call patient reverted to some delusional thoughts "listen to my belly" believing she is asking staff to use a stethoscope to hear the heartbeat. This morning when nursing asked what this place is?, patient said "outer space." She was offered po medication last night and stated 'I can't do it." and was given IM she did not require hold. This AM she had her arms extended out in a Carlos-like- passive- sikh pose and seemed unable to take oral meds, again given IM meds without any need for hold. Met with patient today, asked her to tell me about the pictures her mother sent. She was slightly slowed with minimal intonation but spontaneous in sharing verbally a little about each picture, no thought blocking. When provider asked if her thoughts felt more clear she said "yes." She stated "more able to talk.....I could not talk before because they took my toungue." From there moving forward she reverted to paucity of spontaneous speaking, answering questions asked with significant thought blocking and delusional content. When asked where she is she noted "[place]." When provider shared "this is the [facility]" she agreed she knew it was a hospital by nodding. She later however looked out the window and said "where do you think this is?" and did not respond when provider clarified this was [place] and we were in the [facility]. She states she feels weak and when asked ifs he is in pain she silently looks down at her abdomen When asked about her belly she states she needs provider to listen to her belly and with efforts shares she believes she is . She is not reassured by provider sharing her admission test was negative she states 'It happened after I was already here." She declines examination of her arms for waxy flexibility. She did allow vitals today. When provider states I would like her to have labs drawn tomorrow morning she states "no thank you." She did say at one point "I am supposed to graduate, I need a laptop." Provider affirmed we would help her connect to [employer] when she is feeling better to work on next steps with school. She does not provide any verbal or non-verbal response but stares. Physical Exam Psychiatric Orientation: alert and oriented to person Apperance: + disheveled (laying in bed still, paucit of spontaneous movements) Eye Contact: + fair eye contact Motor Behavior: + psychomotor retardation slow speech usually only in response to questions and there is a long delay, rate is slow, rythm is slow, and volume is normal, tone is flat Affect: + flat affect Mood: + depressed mood (states she feels down "because of the masks") Thought Process: + thought blocking and + looseness of associations does not appear to be responding to auditory hallucinations Suicidal Thoughts: denies suicidal thoughts Homicidal Thoughts: denies homicidal thoughts Estimated Intelligence: average estimated intelligence Insight: + impaired insight Judgement: + impaired judgement Vital Signs (Past 24 Hours) Last Vital Signs Temp 36.4 C L 10/28/19 09:52 Pulse 80 10/28/19 09:52 Resp 16 10/28/19 09:52 BP 118/79 10/28/19 09:52 Pulse Ox 100 10/20/19 06:26 Results & Data ([facility]) Current Inpatient Medications Current Inpatient Medications: Current Inpatient Medications Acetaminophen (Acetaminophen 325 Mg Tab) 650 mg PO Q4H PRN PRN Reason: Headache or Minor Fever Stop: 11/19/19 06:43 Last Admin: 10/20/19 18:30 Dose: 650 mg Documented by: Al Hydrox/Mg Hydrox/Simethicone (Aluminum/Magnesium Susp 30 Ml Udc) 30 ml PO Q4H PRN PRN Reason: GI Upset Stop: 11/19/19 06:43 Benztropine Mesylate (Benztropine Mesylate 0.5 Mg Tab) 0.5 mg PO Q6 PRN PRN Reason: Muscle Spasm Stop: 11/19/19 12:28 Last Admin: 10/23/19 16:26 Dose: 0.5 mg Documented by: Benztropine Mesylate (Benztropine Mesylate 1 Mg/Ml 2 Ml Amp) 2 mg IM BID@0900,2100 PRN PRN Reason: refusal of PO risperidone Stop: 11/26/19 20:59 Last Admin: 10/28/19 09:52 Dose: 2 mg Documented by: Bismuth Subsalicylate (Bismuth Subsalicylate Per Ml Omnicell Charge) 15 ml PO PRN PRN PRN Reason: Loose Stool Stop: 11/19/19 06:43 Haloperidol Lactate (Haloperidol Lactate 5 Mg/Ml 1 Ml Vial) 5 mg IM Q6H PRN PRN Reason: Agitation/Severe Psychosis Stop: 11/23/19 13:14 Haloperidol Lactate (Haloperidol Lactate 5 Mg/Ml 1 Ml Vial) 10 mg IM BID PRN PRN Reason: Refusal of PO risperidone Stop: 11/23/19 13:14 Last Admin: 10/28/19 09:51 Dose: 10 mg Documented by: Hydroxyzine HCl (Hydroxyzine Hcl 25 Mg Tab) 50 mg PO HSZ PRN PRN Reason: Insomnia Stop: 11/19/19 06:43 Last Admin: 10/23/19 20:06 Dose: 50 mg Documented by: Hydroxyzine HCl (Hydroxyzine Hcl 25 Mg Tab) 25 mg PO Q4H PRN PRN Reason: Anxiety Stop: 11/19/19 06:43 Lorazepam (Lorazepam 1 Mg Tab) 1 mg PO Q6 PRN PRN Reason: Anxiety/Agitation Stop: 11/19/19 12:28 Last Admin: 10/23/19 20:06 Dose: 1 mg Documented by: Lorazepam (Lorazepam 2 Mg/Ml Vial (Im Use)) 2 mg IM BID PRN PRN Reason: PO med refusal Stop: 11/23/19 09:00 Last Admin: 10/28/19 09:51 Dose: 2 mg Documented by: Lorazepam (Lorazepam 1 Mg Tab) 2 mg PO BID@00,2099 [facility] Stop: 11/26/19 20:59 Last Admin: 10/28/19 09:11 Dose: Not Given Documented by: Magnesium Hydroxide (Magnesium Hydroxide Susp 30 Ml Udc) 30 ml PO DAILY PRN PRN Reason: Constipation Stop: 11/19/19 06:43 Multivitamins (Multivitamin Tab) 1 tab PO QAM DANUTA Stop: 11/19/19 08:59 Last Admin: 10/28/19 09:11 Dose: Not Given Documented by: Risperidone (Risperidone Odt 1mg) 1 mg PO Q6 PRN PRN Reason: Anxiety/Agitation Stop: 11/19/19 18:29 Last Admin: 10/22/19 16:32 Dose: 1 mg Documented by: Risperidone (Risperidone Odt 1mg) 2 mg PO BID@0900,2099 [facility] Stop: 11/26/19 20:59 Last Admin: 10/28/19 09:12 Dose: Not Given Documented by: Sodium Chloride (Sodium Chloride 0.65% Na Soln 45 Ml ([place])) 1 - 2 sprays NA PRN PRN PRN Reason: Nasal Dryness/Congestion Stop: 11/19/19 06:43 Mental Health & Subst Abuse Tx Therapist Name of Therapist: None Podiatric Medicine Doctor Name of Podiatric Medicine Doctor: None Post Discharge Appointments Primary Care Physician Name Of Family Doctor: MAYITO NELSON Primary Care Provider Appointment Comment: [facility] Contact Information Discharge Discharge Address: Local Address: [address], [address], [place], [place] Contact Information Comment: Permanent [address]: [address] [place] [id number] (1) Psychotic disorder Psychosis type: unspecified psychosis type Qualified Code(s): F29 - Unspecified psychosis not due to a substance or known physiological condition
[2019-10-28] MEDS ORDERED: LORazepam 1 MG TAB PO ONE (12:40)
[2019-10-28] MEDS ORDERED: LORazepam 2 MG/ML VIAL (IM USE) IM ONE (12:42)
[2019-10-28] MEDS ORDERED: BENZTROPINE MESYLATE 1 MG/ML 2 ML AMP ONE (13:54)
[2019-10-28] MEDS ORDERED: RISPERIDONE ODT 1MG PO SCH (15:00)
[2019-10-28] MEDS ORDERED: BENZTROPINE MESYLATE 1 MG/ML 2 ML AMP IM PRN (15:00)
--- NOTE | 2019-10-29 09:03 | Psychiatric Progress Note ---
Date of Service October 29, 2019 Impression / Recommendations Impression 19 yo female with no prior psych hx presents with acute onset of severe thought disorganization with blocking in just the past 1-2 days. Differential mainly includes first break psychosis due to thought disorder, atypical virginia, or substance induced psychotic disorder. She has been resistant to medication and is now on a 302 commitment after signing a 72 hour notice. By the third day of the hospitalization the patient's condition had not improved at all. In fact, staff members felt that she was, if anything, becoming more disorganized and more psychotic. She has a frightened almost frantic look on her face much of the time that she calls out "Carlos" and "I am yours." Her tox screen at admission was positive for marijuana, but it seems quite unlikely that the use of marijuana, even at larger amounts, would explain the ongoing presentation. It is, of course, possible that the marijuana that she had been using was "laced" with drugs such as PCP, or synthetic drugs that may not have been detectable on testing. Medications over objection have been found to be medically necessary by 2 psychiatrist, and medications over objection have been ordered. She has required IM injections for medication over objection. Patient's mother was permitted to visit in-person based on treatment team discussion. Pt remains primarily delusional and continues to display signs of psychosis. Pt condition remains severe enough that she requires the continued support and supervision of an inpatient psychiatric hospitalization, as she remains at acute risk of harm to self and others if she were to be discharged to the community at this time. (1) Psychotic disorder: 10/19--The patient was admitted to the [facility] ([facility] unit) on q15 min checks (behavioral with suicide precautions) for safety. The patient will participate in group, recreational, and milieu therapies and will be offered additional individual and family sessions as clinically appropriate. She is not able to fully understand risks/benefits of antipsychotic medications at this time and will be offered Risperdal 0.5 mg BID today with likely titration. Additional Risperdal and Ativan prn agitation as appears quite paranoid. Fasting labs in am as likely to be discharged on atypical. 10/20--tolerating medications so far, need to increase Risperdal to 1 mg BID and Ativan prn to 1 mg for severity of symptoms. Consider switch to Zyprexa if remains sleepless. 302 completed. Will reattempt fasting labs in am as patient ate prior to draw. 10/21--will add standing Ativan 1 mg BID (2nd dose with evening meal) given catatonic features and given lack of sleep and possible need for IM prep, hold Risperdal tonight in favor of 1 time dose of Zyprexa 5 mg hs. If benefit, prima ry team can decide which atypical to continue with tomorrow. It is my medical opinion that Isra is unable to care for herself outside of the hospital setting and that worsening of her psychosis or significant harm to self or others is likely within the next 30 days if she does not receive antipsychotic medication. This is necessary even over her objection to restore functioning to participate in care and treatment planning. 10/22 -Zyprexa 5 mg at bedtime last evening seem not to have been particularly effective. We resumed risperidone at a higher dose today at risperidone 2 mg twice a day. In addition, medications over objection were ordered. -The patient continues to resist most oral medications, or will only take oral medications with a great deal of active encouragement and support from staff. Medications over objection will be haloperidol 5 mg IM twice daily for refusal of p.o. risperidone. -What we are seeing may be a first episode of virginia, but the presentation is atypical and the onset seems to be quite rapid. While it seems unlikely that marijuana alone could explain the current clinical presentation, we are concerned that perhaps the patient has taken a synthetic drug with the marijuana or has used phencyclidine (PCP). The plan is to attempt to acidify the patient's urine to help clear drug such as PCP. Accordingly, ascorbic acid (vitamin C) has been ordered 1000 mg daily, starting tomorrow has been ordered. 10/23 - Orders adjusted as patient has required medications over objection. Pt received haloperidol 10mg, lorazepam 1mg, and benztropine 2mg IM. Scheduled oral medication, which patient has been refusing, was adjusted to 2mg BID of risperidone ODT as of yesterday. Will continue BID dosing, with IM's for medication refusal. - Orders for prn doses of oral risperidone, as well as IM haloperidol and lorazepam ordered for severe psychosis/agitation. - Pt continues to occupy DANIELLE and remains on a MNPR 10/24 - Continue orders as above - patient required IM medications over objection this morning due to refusal of PO risperidone - Dose of IM lorazepam was titrated to 2mg BID, due to catatonia being included in differential diagnosis - Pt continues to require the DANIELLE for ongoing psychosis with associated behavioral concerns, she remains on MNPR 10/25 -The patient remains floridly psychotic, but today showing some signs of improvement. She is occasionally able to have a brief reality based exchange, although her answers are generally given 1 or 2 words and there may be a delay of 30 to 40 seconds before she responds. -Today, the patient was given medication over objection, but did not require manual hold and trusted staff well enough to cooperate. -She has appeared on several occasions as if she is considering whether to take her antipsychotic medications orally and given her marketed delay in response times we have been giving her several minutes to consider taking the medication and waiting until she indicates that she is declining. -The question of whether the patient's mother should be permitted to visit the patient was considered this morning by the team. It was agreed that it might be better to wait until the patient is more organized. I asked the patient if she would like a visit from her mother, and after the question was repeated several times over several minutes, the patient did not respond. 10/26 - the patient continues to show thought blocking with delay in speech and poverty of speech, and absence of spontaneous speech. She is now making some sensical statements such as she is aware she is at the hospital and perceives the staff is trying to help her, she is not resisting medication even stating she wants to take medication but remains too disorganized to move her hand with the pill to her mouth, so is receiving IM injections without a physical hold. Although not substantial, her ability to be less spontaneously delusional, offer small sentences of sensical conversation, acceptance of medications are subtle signs of improvement. It is unclear if there is residual element of catatonia as she is receiving ativan 1mg bid in her IM meds - vitals are minimal lately, will check and watch for autonomic instability, but no echolalia, no echopraxia, no negativism seen, no purposeless movement and not posturing, but the degree of her disorganization and flatness and odd manner of relating to her body are suspicious. Will monitor for now and continue with offering risperdal 2mg Mtab 2mg po bid and if unable to take or refuses then injections IM over objection with haldol 10mg/cogentin 2mg bid but increase the ativan to 2mg po bid to target any residual catatonia watching to assure she is not sedated. Continue to support po intake with packaged food, and make available video visit with mother until mother can visit. Continue MNPR and DANIELLE area 10/27 - continue plan as above. she is showing slow subtle improvement as she has more moments of speech where she communicates her thoughts but is still far from her pre-morbid level of functioning, She is still unable to take po meds by her own volition. I will offer a challenge of ativan 1mg this afternoon will offer po, but may need to give IM to see if she is less blocked as in catatonic. Vitals are stable, risk is sedation which we will need to monitor. Continue to offer risperdal 2mg po bid m-tab with haldol/cogentin/ativan IM for refusal. 10/28 - Continue current treatment plan - patient did receive an oral dose of risperidone 2mg and lorazepam 2mg this morning, though continues to demonstrate impaired insight regarding her need for treatment. - Ongoing delusions and paranoia, with only brief episodes of somewhat more reality-based comments. Pt continues to be very ill and requires the support and supervision of an inpatient unit. - Treatment team decision to allow patient's mother to visit in person - Continue MNPR and DANIELLE access availability Inventory Assets Strengths: intelligence, family support Needs: improve insight into her condition Risk Factors Assessment Do You Have Access To A Gun?: No Previous Attempt: No Previous Psychiatric Hospitalization: No Protective Factors Assessment Employed: No Supportive Family: Yes Interval History Identifying Information ISRA GARCIA is a 19-year-old F, [employer] Senior from [facility], has no prior psych history and was admitted on 10/20/19 05:34 on a 201 voluntary commitment for disorganized behavior/psychosis. Chief Complaint "I am feeling better." Review of Systems Notes Pt remains disorganized and has difficulty appropriately answering questions. She does not verbalize any physical symptoms. Sleep Information Total Hours of Sleep: 7.25 Sleep Comments: pt appeared to sleep 4.5 hr during evening shift. pt on q-15 minute checks Meal Information Percent Meal Consumed - Breakfast: 30 Percent Meal Consumed - Lunch: 10 Percent Meal Consumed - Dinner: 10 Nutrition Comment: pt ate a banana and drank 1/4 of Powerade Subjective Subjective Patient was seen & assessed and interval progress reviewed with treatment team. Staff report the patient continues to experience significant fluctuations in organization of thought and severity of psychosis/delusions. There are reportedly episodes where patient is able to have a reality-based conversation, but also times where she is severely thought blocked and unable to answer questions posed by staff. Treatment team decision made to allow patient's mother to visit in person. Pt was seen today to assess progress since admission. After a pause, patient does admit to this provider "I am feeling better." This provider inquired what specifically patient is feeling is improved, to which patient states "I'm not sure. My thoughts are just coming back to me." This provider asked numerous additional questions regarding patient's activity on the unit. She continues to demonstrate thought blocking, as there were several questions patient did not answer. At one point, the patient stated "My question is why are you yelling at me?" This provider apologized if it seemed like she was yelling, and stated she was trying to clearly articulate under the surgical mask. Pt then stated "What person are you in the Bible? Are you Makenna?" This provider explained that she is not in the Bible, and this provider re-introduced herself and her role in patient's care. Pt then inquired "I think you're Nusrat, and I forgive you." This provider attempted to assess level of patient's psychosis, and referenced patient's perception than several of our staff are in the Bible. Pt only shared that "they are stories passed down from generation to generation." Pt did state "I know that I need treatment", but then also continued to mention that she was not interested in continuing medications. Pt continues to mention that she believes she is "a lab rat". Pt was asked about goals for the day, or if there was anyone she would like to talk to (as likely mother will be visiting later this morning). Pt stated "if I could see anyone in the whole wide world, I think I would want to see Carlos." Pt was asked if she would like to speak with her mother, and did answer yes. She did not respond to several subsequent questions, and this provider ended interview as patient continued to intently stare without verbally responding. Physical Exam Psychiatric Orientation: alert and + guarded (superficially and intermittently cooperative) thought blocking continues to interfere with ability to fully assess patient's orientation Apperance: appropriately dressed, + disheveled and appeared stated age Eye Contact: + fair eye contact (prolonged staring ) Motor Behavior: no abnormal motor movements (observed while sitting on bed) and + psychomotor retardation (slowed movements) Speech: + abnormal rate/rhythm/volume of speech (significant delay before responding to questions, offers only brief answers) Affect: + flat affect and + constricted affect Thought Process: + thought blocking, + perseveration and + concrete thought process; + thought process not linear or logical Thought Content: + preoccupation, + paranoid, + delusions and + persecution Hallucinations: unclear if patient is responding to internal stimuli Cognition: + recent memory not intact, + attention not intact and + language not intact Insight: + severely impaired insight Judgement: + severely impaired judgement Vital Signs (Past 24 Hours) Last Vital Signs Temp 36.4 C L 10/28/19 09:52 Pulse 80 10/28/19 09:52 Resp 16 10/28/19 09:52 BP 118/79 10/28/19 09:52 Pulse Ox 100 10/20/19 06:26 Results & Data ([facility]) Current Inpatient Medications Current Inpatient Medications: Current Inpatient Medications Acetaminophen (Acetaminophen 325 Mg Tab) 650 mg PO Q4H PRN PRN Reason: Headache or Minor Fever Stop: 11/19/19 06:43 Last Admin: 10/20/19 18:30 Dose: 650 mg Documented by: Al Hydrox/Mg Hydrox/Simethicone (Aluminum/Magnesium Susp 30 Ml Udc) 30 ml PO Q4H PRN PRN Reason: GI Upset Stop: 11/19/19 06:43 Benztropine Mesylate (Benztropine Mesylate 0.5 Mg Tab) 0.5 mg PO Q6 PRN PRN Reason: Muscle Spasm Stop: 11/19/19 12:28 Last Admin: 10/23/19 16:26 Dose: 0.5 mg Documented by: Benztropine Mesylate (Benztropine Mesylate 1 Mg/Ml 2 Ml Amp) 2 mg IM BID@0900,1500 PRN PRN Reason: refusal of PO risperidone Stop: 11/27/19 14:59 Bismuth Subsalicylate (Bismuth Subsalicylate Per Ml Omnicell Charge) 15 ml PO PRN PRN PRN Reason: Loose Stool Stop: 11/19/19 06:43 Haloperidol Lactate (Haloperidol Lactate 5 Mg/Ml 1 Ml Vial) 5 mg IM Q6H PRN PRN Reason: Agitation/Severe Psychosis Stop: 11/23/19 13:14 Haloperidol Lactate (Haloperidol Lactate 5 Mg/Ml 1 Ml Vial) 10 mg IM BID PRN PRN Reason: Refusal of PO risperidone Stop: 11/23/19 13:14 Last Admin: 10/28/19 14:19 Dose: 10 mg Documented by: Hydroxyzine HCl (Hydroxyzine Hcl 25 Mg Tab) 50 mg PO HSZ PRN PRN Reason: Insomnia Stop: 11/19/19 06:43 Last Admin: 10/23/19 20:06 Dose: 50 mg Documented by: Hydroxyzine HCl (Hydroxyzine Hcl 25 Mg Tab) 25 mg PO Q4H PRN PRN Reason: Anxiety Stop: 11/19/19 06:43 Lorazepam (Lorazepam 1 Mg Tab) 1 mg PO Q6 PRN PRN Reason: Anxiety/Agitation Stop: 11/19/19 12:28 Last Admin: 10/23/19 20:06 Dose: 1 mg Documented by: Lorazepam (Lorazepam 2 Mg/Ml Vial (Im Use)) 2 mg IM BID PRN PRN Reason: PO med refusal Stop: 11/23/19 09:00 Last Admin: 10/28/19 14:19 Dose: 2 mg Documented by: Lorazepam (Lorazepam 1 Mg Tab) 2 mg PO BID@0900,1500 [facility] Stop: 11/27/19 14:59 Last Admin: 10/28/19 14:22 Dose: Not Given Documented by: Magnesium Hydroxide (Magnesium Hydroxide Susp 30 Ml Udc) 30 ml PO DAILY PRN PRN Reason: Constipation Stop: 11/19/19 06:43 Multivitamins (Multivitamin Tab) 1 tab PO QAM DANUTA Stop: 11/19/19 08:59 Last Admin: 10/28/19 09:11 Dose: Not Given Documented by: Risperidone (Risperidone Odt 1mg) 1 mg PO Q6 PRN PRN Reason: Anxiety/Agitation Stop: 11/19/19 18:29 Last Admin: 10/22/19 16:32 Dose: 1 mg Documented by: Risperidone (Risperidone Odt 1mg) 2 mg PO BID@0900,1500 DANUTA Stop: 11/27/19 14:59 Last Admin: 10/28/19 14:22 Dose: Not Given Documented by: Sodium Chloride (Sodium Chloride 0.65% Na Soln 45 Ml ([place])) 1 - 2 sprays NA PRN PRN PRN Reason: Nasal Dryness/Congestion Stop: 11/19/19 06:43 Mental Health & Subst Abuse Tx Therapist Name of Therapist: None Alterations Workroom Clerk Name of Alterations Workroom Clerk: None Post Discharge Appointments Primary Care Physician Name Of Family Doctor: [facility] Primary Care Provider Appointment Comment: [facility] Contact Information Discharge Discharge Address: Local Address: [address], [place], [address], [place], [place] Contact Information Comment: Permanent [address]: [address] [place] [id number] (1) Psychotic disorder Psychosis type: unspecified psychosis type Qualified Code(s): F29 - Unspecified psychosis not due to a substance or known physiological condition
[2019-10-29] MEDS ORDERED: risperiDONE 2 MG TABLET PO SCH (10:00)
[2019-10-29] MEDS: LORazepam 1 MG TAB PO SCH ×2 (10:19→16:37)
[2019-10-29] MEDS: risperiDONE 2 MG TABLET PO SCH ×2 (10:19→16:37)
[2019-10-29] MEDS: MULTIVITAMIN TAB PO SCH (10:20)
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
[2019-10-30] MEDS: LORazepam 1 MG TAB PO SCH ×2 (09:47→14:31)
[2019-10-30] MEDS: risperiDONE 2 MG TABLET PO SCH ×2 (09:50→14:31)
[2019-10-30] MEDS: MULTIVITAMIN TAB PO SCH (10:16)
[2019-10-30] MEDS ORDERED: COUGH DROP (SUGAR FREE) LOZ 24 LOZ/1 BOX BUCCAL PRN (12:12)
[2019-10-31 08:02] LABS: Glucose Fasting 92 mg/dl (70-99)
[2019-10-31 08:08] LABS: Chol HDL Ratio 5; Cholesterol 162 mg/dl (0-200); HDL Cholesterol 35 mg/dl; LDL Cholesterol Calculated 102 mg/dl; Triglycerides 127 mg/dl (0-150); VLDL Cholesterol 25 mg/dl
[2019-10-31] MEDS: risperiDONE 2 MG TABLET PO SCH (09:46)
[2019-10-31] MEDS: MULTIVITAMIN TAB PO SCH (09:46)
[2019-10-31] MEDS: LORazepam 1 MG TAB PO SCH ×2 (09:46→14:48)
--- NOTE | 2019-10-31 10:08 | Psychiatric Progress Note ---
Date of Service October 31, 2019 Impression / Recommendations Impression 19 yo female with no prior psychiatric history who presented with acute onset of severe thought disorganization with blocking and delusions. 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 She was resistant to medication and was placed on a 302 commitment after requesting to leave treatment. By the third day of the hospitalization the patient's condition had not improved at all, and in fact, she became more disorganized and psychotic. She was placed on a 303 on 10/26/2019, and medications over objection recommended by 2 psychiatrists. She has required IM injections for medication over objection, intermittently with need for physical hold to ensure safety of patient and staff while medications were being delivered. More recently, patient has been taking oral medications but not without significant encouragement from staff. She continues to lack insight into her illness and need for treatment. Patient's mother was permitted to visit in-person based on treatment team discussion, and visit went well. Pt remains severely thought blocked and delusional at times, and is not consistently able to rationally manipulate information, provide for her own basic needs, or appreciate the severity of her symptoms. Inpatient treatment remains medically necessary as she is unable to provide for her basic needs including nutrition and medication, and remains at acute risk of harm to self and others if she were to be discharged to the community at this time. (1) Psychotic disorder: 10/19--The patient was admitted to the [facility] ([facility] mental [facility] unit) on q15 min checks (behavioral with suicide precautions) for safety. The patient will participate in group, recreational, and milieu therapies and will be offered additional individual and family sessions as clinically appropriate. She is not able to fully understand risks/benefits of antipsychotic medications at this time and will be offered Risperdal 0.5 mg BID today with likely titration. Additional Risperdal and Ativan prn agitation as appears quite paranoid. Fasting labs in am as likely to be discharged on atypical. 10/20--tolerating medications so far, need to increase Risperdal to 1 mg BID and Ativan prn to 1 mg for severity of symptoms. Consider switch to Zyprexa if remains sleepless. 302 completed. Will reattempt fasting labs in am as patient ate prior to draw. 10/21--will add standing Ativan 1 mg BID (2nd dose with evening meal) given catatonic features and given lack of sleep and possible need for IM prep, hold Risperdal tonight in favor of 1 time dose of Zyprexa 5 mg hs. If benefit, primary team can decide which atypical to continue with tomorrow. It is my medical opinion that Isra is unable to care for herself outside of the hospital setting and that worsening of her psychosis or significant harm to self or others is likely within the next 30 days if she does not receive antipsychotic medication. This is necessary even over her objection to restore functioning to participate in care and treatment planning. 10/22 -Zyprexa 5 mg at bedtime last evening seem not to have been particularly effective. We resumed risperidone at a higher dose today at risperidone 2 mg twice a day. In addition, medications over objection were ordered. -The patient continues to resist most oral medications, or will only take oral medications with a great deal of active encouragement and support from staff. Medications over objection will be haloperidol 5 mg IM twice daily for refusal of p.o. risperidone. -What we are seeing may be a first episode of virginia, but the presentation is atypical and the onset seems to be quite rapid. While it seems unlikely that marijuana alone could explain the current clinical presentation, we are concerned that perhaps the patient has taken a synthetic drug with the marijuana or has used phencyclidine (PCP). The plan is to attempt to acidify the patient's urine to help clear drug such as PCP. Accordingly, ascorbic acid (vitamin C) has been ordered 1000 mg daily, starting tomorrow has been ordered. 10/23 - Orders adjusted as patient has required medications over objection. Pt received haloperidol 10mg, lorazepam 1mg, and benztropine 2mg IM. Scheduled oral medication, which patient has been refusing, was adjusted to 2mg BID of risperidone ODT as of yesterday. Will continue BID dosing, with IM's for medication refusal. - Orders for prn doses of oral risperidone, as well as IM haloperidol and lorazepam ordered for severe psychosis/agitation. - Pt continues to occupy DANIELLE and remains on a MNPR 10/24 - Continue orders as above - patient required IM medications over objection this morning due to refusal of PO risperidone - Dose of IM lorazepam was titrated to 2mg BID, due to catatonia being included in differential diagnosis - Pt continues to require the DANIELLE for ongoing psychosis with associated behavioral concerns, she remains on MNPR 10/25 -The patient remains floridly psychotic, but today showing some signs of improvement. She is occasionally able to have a brief reality based exchange, although her answers are generally given 1 or 2 words and there may be a delay of 30 to 40 seconds before she responds. -Today, the patient was given medication over objection, but did not require manual hold and trusted staff well enough to cooperate. -She has appeared on several occasions as if she is considering whether to take her antipsychotic medications orally and given her marketed delay in response times we have been giving her several minutes to consider taking the medication and waiting until she indicates that she is declining. -The question of whether the patient's mother should be permitted to visit the patient was considered this morning by the team. It was agreed that it might be better to wait until the patient is more organized. I asked the patient if she would like a visit from her mother, and after the question was repeated several times over several minutes, the patient did not respond. 10/26 - the patient continues to show thought blocking with delay in speech and poverty of speech, and absence of spontaneous speech. She is now making some sensical statements such as she is aware she is at the hospital and perceives the staff is trying to help her, she is not resisting medication even stating she wants to take medication but remains too disorganized to move her hand with the pill to her mouth, so is receiving IM injections without a physical hold. Although not substantial, her ability to be less spontaneously delusional, offer small sentences of sensical conversation, acceptance of medications are subtle signs of improvement. It is unclear if there is residual element of catatonia as she is receiving ativan 1mg bid in her IM meds - vitals are minimal lately, will check and watch for autonomic instability, but no echolalia, no echopraxia, no negativism seen, no purposeless movement and not posturing, but the degree of her disorganization and flatness and odd manner of relating to her body are suspicious. Will monitor for now and continue with offering risperdal 2mg Mtab 2mg po bid and if unable to take or refuses then injections IM over objection with haldol 10mg/cogentin 2mg bid but increase the ativan to 2mg po bid to target any residual catatonia watching to assure she is not sedated. Continue to support po intake with packaged food, and make available video visit with mother until mother can visit. Continue MNPR and DANIELLE area 10/27 - continue plan as above. she is showing slow subtle improvement as she has more moments of speech where she communicates her thoughts but is still far from her pre-morbid level of functioning, She is still unable to take po meds by her own volition. I will offer a challenge of ativan 1mg this afternoon will offer po, but may need to give IM to see if she is less blocked as in catatonic. Vitals are stable, risk is sedation which we will need to monitor. Continue to offer risperdal 2mg po bid m-tab with haldol/cogentin/ativan IM for refusal. 10/28 - Continue current treatment plan - patient did receive an oral dose of risperidone 2mg and lorazepam 2mg this morning, though continues to demonstrate impaired insight regarding her need for treatment. - Ongoing delusions and paranoia, with only brief episodes of somewhat more reality-based comments. Pt continues to be very ill and requires the support and supervision of an inpatient unit. - Treatment team decision to allow patient's mother to visit in person - Continue MNPR and DANIELLE access availability 10/29 -Patient took risperidone 2 mg twice daily yesterday, will continue this dose and monitor for orthostatic hypotension (BP 110/71 today, pulse 106). -Fasting labs ordered for tomorrow for monitoring on an atypical antipsychotic. -Continue private room and excuse from groups given severity of psychotic symptoms. -Social work to coordinate with [facility] Office of Student Care and Advocacy. 10/30 - To improve medication consistency and better evaluate patient's response to her medication regimen, we will plan to adjust medication regimen to haloperidol - both for oral agent and IM injections as necessary. Will continue with current dosing of 10mg BID and titrate as necessary. - Fasting labs obtained this morning and reviewed with patient - all values WNL - Continue MNPR - consider ability to step down from DANIELLE as possible Inventory Assets Strengths: intelligence, family support Needs: improve insight into her condition Risk Factors Assessment Do You Have Access To A Gun?: No Previous Attempt: No Previous Psychiatric Hospitalization: No Protective Factors Assessment Employed: No Supportive Family: Yes Interval History Identifying Information ISRA GARCIA is a 19-year-old F, [employer] Senior from [place], has no prior psych history and was admitted on 10/20/19 05:34 on a 201 voluntary commitment for disorganized behavior/psychosis. She was then placed on a 302 and is on a 303 as of 10/26/2019. Chief Complaint "I'm feeling maria r weak." Review of Systems Notes Constitutional: reports fatigue and feeling "weak" this morning Cardiovascular: denied Respiratory: denied Gastrointestinal: denied Neurological: denied Psychiatric: denies symptoms other than stated above Total of at least 10 systems reviewed, pertinent positives as above and in HPI. Sleep Information Total Hours of Sleep: 10.75 Sleep Comments: pt on q-15 minute checks Meal Information Percent Meal Consumed - Breakfast: 25 Percent Meal Consumed - Lunch: 15 Percent Meal Consumed - Dinner: 100 Nutrition Comment: Pt has been sleeping a large part of the evening Subjective Subjective Patient was seen & assessed and interval progress reviewed with treatment team. Staff report the patient continues to be hesitant to take oral medications, but has done so for ~2 days with significant prompting. Pt was out of her room yesterday and interacted appropriately with peers playing the STARFACE video game. She was seen today to assess progress since admission. Pt states "I'm feeling maria r weak". It was reported from nursing that this morning patient had verbalized the belief that she was positive for COVID-19 and that she is now sick, but did not report any symptoms consistent with this. Pt was asked about her day yesterday, and stated "I went to the activity room and played STARFACE. It was fun." Regarding progress here on the unit, she states "I do think I'm starting to get better. But I did learn that I talk too much." Pt was unable to explain clearly what she meant by this comment, but did state "I like to talk to people. See where everybody came from, learn about their background and their culture." Pt was encouraged in this, and suggested to attend activity groups as she felt able. Pt does inquire "were you there when they took a picture of my brain?" - but did clarify that this is simply because "I just wanted to see what it looks like. I've always been curious." When patient was asked if she expected anything to appear in her imaging, she states "I certainly hope not." Pt also inquires "what happens to the blood you guys have taken from me?" This provider explained the testing that was completed this morning and reviewed results. 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 Pt was reassured that her blood has been tested to ensure there are no medical concerns we need to address, and that we are not conducting any additional studies beyond that. Pt did not seem particularly paranoid during these conversations, but simply curious. Pt denied other concerns at this time, but states "I will be asking some things later." When asked if this provider could assist with these quest ions, the patient declined to discuss further. We reviewed change in medication recommendations and patient denied any new questions or concerns. Physical Exam Psychiatric Orientation: alert and cooperative (superficially, more reality-based in conversation today) Apperance: appropriately dressed (casually, still wearing pajamas), appropriately groomed and appeared stated age Eye Contact: + fair eye contact Motor Behavior: no abnormal motor movements (observed while laying in bed) Speech: normal rate/rhythm/volume of speech Affect: + blunted affect (appearing subdued, somewhat fatigued) Mood: no depressed mood Thought Process: goal directed thought process (conversation was mostly coherent and appropriate) and + concrete thought process Thought Content: + paranoid (asking questions about medical testing/blood work - less fixated today) and + delusions (ongoing, but less fixated on these today); no hopelessness Suicidal Thoughts: denies suicidal thoughts and denies suicidal intent Homicidal Thoughts: denies homicidal thoughts Hallucinations: no auditory hallucinations and no visual hallucinations Cognition: attention grossly intact and language grossly intact Insight: + impaired insight Judgement: + impaired judgement Vital Signs (Past 24 Hours) Last Vital Signs Temp 36.6 C 10/31/19 07:00 Pulse 71 10/31/19 07:00 Resp 16 10/31/19 07:00 BP 98/66 L 10/31/19 07:00 Pulse Ox 100 10/20/19 06:26 Results & Data ([facility]) Laboratory Results Laboratory Results - last 24 hr 10/31/19 07:21 Fasting Glucose 92 Triglycerides 127 Cholesterol 162 LDL Cholesterol, Calc 102 VLDL Cholesterol, Calc 25 HDL Cholesterol 35 Cholesterol/HDL Ratio 5 Current Inpatient Medications Current Inpatient Medications: Current Inpatient Medications Acetaminophen (Acetaminophen 325 Mg Tab) 650 mg PO Q4H PRN PRN Reason: Headache or Minor Fever Stop: 11/19/19 06:43 Last Admin: 10/20/19 18:30 Dose: 650 mg Documented by: Al Hydrox/Mg Hydrox/Simethicone (Aluminum/Magnesium Susp 30 Ml Udc) 30 ml PO Q4H PRN PRN Reason: GI Upset Stop: 11/19/19 06:43 Benztropine Mesylate (Benztropine Mesylate 0.5 Mg Tab) 0.5 mg PO Q6 PRN PRN Reason: Muscle Spasm Stop: 11/19/19 12:28 Last Admin: 10/23/19 16:26 Dose: 0.5 mg Documented by: Benztropine Mesylate (Benztropine Mesylate 1 Mg/Ml 2 Ml Amp) 2 mg IM BID@0900,1500 PRN PRN Reason: refusal of PO risperidone Stop: 11/27/19 14:59 Bismuth Subsalicylate (Bismuth Subsalicylate Per Ml Omnicell Charge) 15 ml PO PRN PRN PRN Reason: Loose Stool Stop: 11/19/19 06:43 Haloperidol Lactate (Haloperidol Lactate 5 Mg/Ml 1 Ml Vial) 5 mg IM Q6H PRN PRN Reason: Agitation/Severe Psychosis Stop: 11/23/19 13:14 Haloperidol Lactate (Haloperidol Lactate 5 Mg/Ml 1 Ml Vial) 10 mg IM BID PRN PRN Reason: Refusal of PO risperidone Stop: 11/23/19 13:14 Last Admin: 10/28/19 14:19 Dose: 10 mg Documented by: Hydroxyzine HCl (Hydroxyzine Hcl 25 Mg Tab) 50 mg PO HSZ PRN PRN Reason: Insomnia Stop: 11/19/19 06:43 Last Admin: 10/23/19 20:06 Dose: 50 mg Documented by: Hydroxyzine HCl (Hydroxyzine Hcl 25 Mg Tab) 25 mg PO Q4H PRN PRN Reason: Anxiety Stop: 11/19/19 06:43 Lorazepam (Lorazepam 1 Mg Tab) 1 mg PO Q6 PRN PRN Reason: Anxiety/Agitation Stop: 11/19/19 12:28 Last Admin: 10/23/19 20:06 Dose: 1 mg Documented by: Lorazepam (Lorazepam 2 Mg/Ml Vial (Im Use)) 2 mg IM BID PRN PRN Reason: PO med refusal Stop: 11/23/19 09:00 Last Admin: 10/28/19 14:19 Dose: 2 mg Documented by: Lorazepam (Lorazepam 1 Mg Tab) 2 mg PO BID@0900,1500 [facility] Stop: 11/27/19 14:59 Last Admin: 10/31/19 09:46 Dose: 2 mg Documented by: Magnesium Hydroxide (Magnesium Hydroxide Susp 30 Ml Udc) 30 ml PO DAILY PRN PRN Reason: Constipation Stop: 11/19/19 06:43 Menthol (Cough Drop (Sugar Free) Junito 24 Junito/1 Box) 1 junito BUCCAL Q1H PRN PRN Reason: Sore Throat/Cough Stop: 11/29/19 12:11 Last Admin: 10/30/19 14:29 Dose: 1 junito Documented by: Multivitamins (Multivitamin Tab) 1 tab PO QAM DANUTA Stop: 11/19/19 08:59 Last Admin: 10/31/19 09:46 Dose: Not Given Documented by: Risperidone (Risperidone Odt 1mg) 1 mg PO Q6 PRN PRN Reason: Anxiety/Agitation Stop: 11/19/19 18:29 Last Admin: 10/22/19 16:32 Dose: 1 mg Documented by: Risperidone (Risperidone 2 Mg Tablet) 2 mg PO BID@0900,1500 [facility] Stop: 11/28/19 14:59 Last Admin: 10/31/19 09:46 Dose: 2 mg Documented by: Sodium Chloride (Sodium Chloride 0.65% Na Soln 45 Ml (Ringo)) 1 - 2 sprays NA PRN PRN PRN Reason: Nasal Dryness/Congestion Stop: 11/19/19 06:43 Mental Health & Subst Abuse Tx Therapist Name of Therapist: None Manager Business Name of Manager Business: [employer] [facility] [employer] Phone Number for Manager Business: [phone] Case Management Appointment Comment: [address] Post Discharge Appointments Primary Care Physician Name Of Family Doctor: MAYITO NELSON Primary Care Provider Appointment Comment: [facility] Contact Information Discharge Discharge Address: Local Address: [address], [place], [place] Contact Information Comment: P[address] [address] [place] [id number] (1) Psychotic disorder Psychosis type: unspecified psychosis type Qualified Code(s): F29 - Unspecified psychosis not due to a substance or known physiological condition
[2019-10-31] MEDS ORDERED: HALOPERIDOL LACTATE 5 MG/ML 1 ML VIAL IM PRN (14:47)
[2019-10-31] MEDS ORDERED: BENZTROPINE MESYLATE 1 MG/ML 2 ML AMP IM PRN (14:47)
[2019-10-31] MEDS: haloperidoL 5 MG TAB PO SCH (14:49)
[2019-11-01] MEDS: LORazepam 1 MG TAB PO SCH ×2 (08:25→14:44)
[2019-11-01] MEDS: haloperidoL 5 MG TAB PO SCH ×2 (08:25→14:44)
--- NOTE | 2019-11-01 09:43 | Psychiatric Progress Note ---
Date of Service November 01, 2019 Impression / Recommendations Impression 19 yo female with no prior psychiatric history who presented with acute onset of severe thought disorganization with blocking and delusions. 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 She was resistant to medication and was placed on a 302 commitment after requesting to leave treatment. By the third day of the hospitalization the patient's condition had not improved at all, and in fact, she became more disorganized and psychotic. She was placed on a 303 on 10/26/2019, and medications over objection recommended by 2 psychiatrists. She has required IM injections for medication over objection, intermittently with need for physical hold to ensure safety of patient and staff while medications were being delivered. More recently, patient has been taking oral medications but not without significant encouragement from staff. She continues to lack insight into her illness and need for treatment. Patient's mother was permitted to visit in-person based on treatment team discussion, and visit went well. Pt remains severely thought blocked and delusional at times, and is not consistently able to rationally manipulate information, provide for her own basic needs, or appreciate the severity of her symptoms. Inpatient treatment remains medically necessary as she is unable to provide for her basic needs including nutrition and medication, and remains at acute risk of harm to self and others if she were to be discharged to the community at this time. (1) Psychotic disorder: 10/19--The patient was admitted to the [facility] ([facility] mental health unit) on q15 min checks (behavioral with suicide precautions) for safety. The patient will participate in group, recreational, and milieu therapies and will be offered additional individual and family sessions as clinically appropriate. She is not able to fully understand risks/benefits of antipsychotic medications at this time and will be offered Risperdal 0.5 mg BID today with likely titration. Additional Risperdal and Ativan prn agitation as appears quite paranoid. Fasting labs in am as likely to be discharged on atypical. 10/20--tolerating medications so far, need to increase Risperdal to 1 mg BID and Ativan prn to 1 mg for severity of symptoms. Consider switch to Zyprexa if remains sleepless. 302 completed. Will reattempt fasting labs in am as patient ate prior to draw. 10/21--will add standing Ativan 1 mg BID (2nd dose with evening meal) given catatonic features and given lack of sleep and possible need for IM prep, hold Risperdal tonight in favor of 1 time dose of Zyprexa 5 mg hs. If benefit, primary team can decide which atypical to continue with tomorrow. It is my medical opinion that Isra is unable to care for herself outside of the hospital setting and that worsening of her psychosis or significant harm to self or others is likely within the next 30 days if she does not receive antipsychotic medication. This is necessary even over her objection to restore functioning to participate in care and treatment planning. 10/22 -Zyprexa 5 mg at bedtime last evening seem not to have been particularly effective. We resumed risperidone at a higher dose today at risperidone 2 mg twice a day. In addition, medications over objection were ordered. -The patient continues to resist most oral medications, or will only take oral medications with a great deal of active encouragement and support from staff. Medications over objection will be haloperidol 5 mg IM twice daily for refusal of p.o. risperidone. -What we are seeing may be a first episode of virginia, but the presentation is atypical and the onset seems to be quite rapid. While it seems unlikely that marijuana alone could explain the current clinical presentation, we are concerned that perhaps the patient has taken a synthetic drug with the marijuana or has used phencyclidine (PCP). The plan is to attempt to acidify the patient's urine to help clear drug such as PCP. Accordingly, ascorbic acid (vitamin C) has been ordered 1000 mg daily, starting tomorrow has been ordered. 10/23 - Orders adjusted as patient has required medications over objection. Pt received haloperidol 10mg, lorazepam 1mg, and benztropine 2mg IM. Scheduled oral medication, which patient has been refusing, was adjusted to 2mg BID of risperidone ODT as of yesterday. Will continue BID dosing, with IM's for medication refusal. - Orders for prn doses of oral risperidone, as well as IM haloperidol and lorazepam ordered for severe psychosis/agitation. - Pt continues to occupy DANIELLE and remains on a MNPR 10/24 - Continue orders as above - patient required IM medications over objection this morning due to refusal of PO risperidone - Dose of IM lorazepam was titrated to 2mg BID, due to catatonia being included in differential diagnosis - Pt continues to require the DANIELLE for ongoing psychosis with associated behavioral concerns, she remains on MNPR 10/25 -The patient remains floridly psychotic, but today showing some signs of improvement. She is occasionally able to have a brief reality based exchange, although her answers are generally given 1 or 2 words and there may be a delay of 30 to 40 seconds before she responds. -Today, the patient was given medication over objection, but did not require manual hold and trusted staff well enough to cooperate. -She has appeared on several occasions as if she is considering whether to take her antipsychotic medications orally and given her marketed delay in response times we have been giving her several minutes to consider taking the medication and waiting until she indicates that she is declining. -The question of whether the patient's mother should be permitted to visit the patient was considered this morning by the team. It was agreed that it might be better to wait until the patient is more organized. I asked the patient if she would like a visit from her mother, and after the question was repeated several times over several minutes, the patient did not respond. 10/26 - the patient continues to show thought blocking with delay in speech and poverty of speech, and absence of spontaneous speech. She is now making some sensical statements such as she is aware she is at the hospital and perceives the staff is trying to help her, she is not resisting medication even stating she wants to take medication but remains too disorganized to move her hand with the pill to her mouth, so is receiving IM injections without a physical hold. Although not substantial, her ability to be less spontaneously delusional, offer small sentences of sensical conversation, acceptance of medications are subtle signs of improvement. It is unclear if there is residual element of catatonia as she is receiving ativan 1mg bid in her IM meds - vitals are minimal lately, will check and watch for autonomic instability, but no echolalia, no echopraxia, no negativism seen, no purposeless movement and not posturing, but the degree of her disorganization and flatness and odd manner of relating to her body are suspicious. Will monitor for now and continue with offering risperdal 2mg Mtab 2mg po bid and if unable to take or refuses then injections IM over objection with haldol 10mg/cogentin 2mg bid but increase the ativan to 2mg po bid to target any residual catatonia watching to assure she is not sedated. Continue to support po intake with packaged food, and make available video visit with mother until mother can visit. Continue MNPR and DANIELLE area 10/27 - continue plan as above. she is showing slow subtle improvement as she has more moments of speech where she communicates her thoughts but is still far from her pre-morbid level of functioning, She is still unable to take po meds by her own volition. I will offer a challenge of ativan 1mg this afternoon will offer po, but may need to give IM to see if she is less blocked as in catatonic. Vitals are stable, risk is sedation which we will need to monitor. Continue to offer risperdal 2mg po bid m-tab with haldol/cogentin/ativan IM for refusal. 10/28 - Continue current treatment plan - patient did receive an oral dose of risperidone 2mg and lorazepam 2mg this morning, though continues to demonstrate impaired insight regarding her need for treatment. - Ongoing delusions and paranoia, with only brief episodes of somewhat more reality-based comments. Pt continues to be very ill and requires the support and supervision of an inpatient unit. - Treatment team decision to allow patient's mother to visit in person - Continue MNPR and DANIELLE access availability 10/29 -Patient took risperidone 2 mg twice daily yesterday, will continue this dose and monitor for orthostatic hypotension (BP 110/71 today, pulse 106). -Fasting labs ordered for tomorrow for monitoring on an atypical antipsychotic. -Continue private room and excuse from groups given severity of psychotic symptoms. -Social work to coordinate with [facility] Office of Student Care and Advocacy. 10/30 - To improve medication consistency and better evaluate patient's response to her medication regimen, we will plan to adjust medication regimen to haloperidol - both for oral agent and IM injections as necessary. Will continue with current dosing of 10mg BID and titrate as necessary. - Fasting labs obtained this morning and reviewed with patient - all values WNL - Continue MNPR - consider ability to step down from DANIELLE as possible 10/31 - Continue current medication regimen - haloperidol 10mg BID and lorazepam 2mg BID as oral medications, with same medications ordered IM for medications over objection - Discussed recommendation to more afternoon medication dose to evening, given reports of increased daytime fatigue - patient is declining at this time to make any adjustments. - Continue MNPR Inventory Assets Strengths: intelligence, family support Needs: improve insight into her condition Risk Factors Assessment Do You Have Access To A Gun?: No Previous Attempt: No Previous Psychiatric Hospitalization: No Protective Factors Assessment Employed: No Supportive Family: Yes Interval History Identifying Information ISRA GARCIA is a 19-year-old F, [employer] Senior from [place], has no prior psych history and was admitted on 10/20/19 05:34 on a 201 voluntary commitment for disorganized behavior/psychosis. She was then placed on a 302 and is on a 303 as of 10/26/2019. Chief Complaint "I'm fine. How are you today?" Review of Systems Notes Constitutional: admits to daytime fatigue Cardiovascular: denied Respiratory: denied Gastrointestinal: denied Neurological: denied Psychiatric: denies symptoms other than stated above Total of at least 10 systems reviewed, pertinent positives as above and in HPI. Sleep Information Total Hours of Sleep: 9.0 Sleep Comments: pt on q-15 minute checks Meal Information Percent Meal Consumed - Breakfast: 40 Percent Meal Consumed - Lunch: 30 Percent Meal Consumed - Dinner: 30 Nutrition Comment: Pt has been sleeping a large part of the evening Subjective Subjective Patient was seen & assessed and interval progress reviewed with nursing and social work. Staff report the patient has gradually been demonstrating improved behavior and clarity of thought over the past few days. Pt has been more agreeable to taking medications orally. We had discussed beginning to convert patient back to standard BID dosing since patient has been taking medications more consistently. Pt was seen today to assess progress since admission. Pt still offers delayed responses to questions, but admits that her day is going well. She states that she went to groups yesterday and found herself able to contribute. Pt states sleep and appetite have been stable - she even asks this provider if she slept well and how her day is going. Pt was recommended to consider moving her second daily dose of medications to the evening hours, in order to reduce daytime fatigue - a complaints patient had verbalized yesterday. Pt became abruptly defensive, stating "I'm taking my medications, I'm doing what you tell me!" This provider reassured the patient that she is participating appropriately and we have noticed this. Pt was again provided wi th the reasoning for dose adjustments. She states "I want to keep it just the way it is, why would you change it?" Although thought blocking is improved, it is still felt that the patient experiences more difficulty in the mornings and improves with regard to symptoms of psychosis as the day progresses. This provider agreed to keep her medications as they are currently scheduled for the time being, and that we would discuss the topic later. Pt denied other needs or concerns at this time. Physical Exam Psychiatric Orientation: alert and + guarded (only superficially cooperative this morning) Apperance: appropriately dressed (casually, still wearing pajamas), appropriately groomed and appeared stated age Eye Contact: + fair eye contact (prolonged staring) Motor Behavior: no abnormal motor movements (observed while laying in bed) Speech: normal rate/rhythm/volume of speech (monotone, somewhat brief responses to questions) Affect: + flat affect (subdued/sedated) Thought Process: + thought blocking (responses to questions are still somewhat delayed ) and + concrete thought process Thought Content: + paranoid (versus hypervigilance); no hopelessness Pt does not verbalize any delusional thought content, but continues to seem to be paranoid and hypervigilant, questioning motives for medication recommendations being made. Suicidal Thoughts: denies suicidal thoughts Homicidal Thoughts: denies homicidal thoughts Hallucinations: no auditory hallucinations and no visual hallucinations Cognition: attention grossly intact and language grossly intact Insight: + impaired insight Judgement: + impaired judgement Vital Signs (Past 24 Hours) Last Vital Signs Temp 36.6 C 11/01/19 07:02 Pulse 90 11/01/19 07:02 Resp 18 11/01/19 07:02 BP 99/62 L 11/01/19 07:02 Pulse Ox 100 10/20/19 06:26 Results & Data ([facility]) Current Inpatient Medications Current Inpatient Medications: Current Inpatient Medications Acetaminophen (Acetaminophen 325 Mg Tab) 650 mg PO Q4H PRN PRN Reason: Headache or Minor Fever Stop: 11/19/19 06:43 Last Admin: 10/20/19 18:30 Dose: 650 mg Documented by: Al Hydrox/Mg Hydrox/Simethicone (Aluminum/Magnesium Susp 30 Ml Udc) 30 ml PO Q4H PRN PRN Reason: GI Upset Stop: 11/19/19 06:43 Benztropine Mesylate (Benztropine Mesylate 0.5 Mg Tab) 0.5 mg PO Q6 PRN PRN Reason: Muscle Spasm Stop: 11/19/19 12:28 Last Admin: 10/23/19 16:26 Dose: 0.5 mg Documented by: Benztropine Mesylate (Benztropine Mesylate 1 Mg/Ml 2 Ml Amp) 2 mg IM BID@0900,1500 PRN PRN Reason: refusal of PO medication Stop: 11/27/19 14:59 Bismuth Subsalicylate (Bismuth Subsalicylate Per Ml Omnicell Charge) 15 ml PO PRN PRN PRN Reason: Loose Stool Stop: 11/19/19 06:43 Haloperidol (Haloperidol 5 Mg Tab) 10 mg PO BID@0900,1500 DANUTA Stop: 11/30/19 14:59 Last Admin: 11/01/19 08:25 Dose: 10 mg Documented by: Haloperidol (Haloperidol 5 Mg Tab) 5 mg PO Q6H PRN PRN Reason: agitation/severe psychosis Stop: 11/30/19 10:08 Haloperidol Lactate (Haloperidol Lactate 5 Mg/Ml 1 Ml Vial) 5 mg IM Q6H PRN PRN Reason: Agitation/Severe Psychosis Stop: 11/23/19 13:14 Haloperidol Lactate (Haloperidol Lactate 5 Mg/Ml 1 Ml Vial) 10 mg IM BID PRN PRN Reason: Refusal of PO medication Stop: 11/23/19 13:14 Hydroxyzine HCl (Hydroxyzine Hcl 25 Mg Tab) 50 mg PO HSZ PRN PRN Reason: Insomnia Stop: 11/19/19 06:43 Last Admin: 10/23/19 20:06 Dose: 50 mg Documented by: Hydroxyzine HCl (Hydroxyzine Hcl 25 Mg Tab) 25 mg PO Q4H PRN PRN Reason: Anxiety Stop: 11/19/19 06:43 Lorazepam (Lorazepam 1 Mg Tab) 1 mg PO Q6 PRN PRN Reason: Anxiety/Agitation Stop: 11/19/19 12:28 Last Admin: 10/23/19 20:06 Dose: 1 mg Documented by: Lorazepam (Lorazepam 2 Mg/Ml Vial (Im Use)) 2 mg IM BID PRN PRN Reason: PO med refusal Stop: 11/23/19 09:00 Last Admin: 10/28/19 14:19 Dose: 2 mg Documented by: Lorazepam (Lorazepam 1 Mg Tab) 2 mg PO BID@0900,1500 DANUTA Stop: 11/27/19 14:59 Last Admin: 11/01/19 08:25 Dose: 2 mg Documented by: Magnesium Hydroxide (Magnesium Hydroxide Susp 30 Ml Udc) 30 ml PO DAILY PRN PRN Reason: Constipation Stop: 11/19/19 06:43 Menthol (Cough Drop (Sugar Free) Junito 24 Junito/1 Box) 1 junito BUCCAL Q1H PRN PRN Reason: Sore Throat/Cough Stop: 11/29/19 12:11 Last Admin: 10/30/19 14:29 Dose: 1 junito Documented by: Multivitamins (Multivitamin Tab) 1 tab PO QAM DANUTA Stop: 11/19/19 08:59 Last Admin: 10/31/19 09:46 Dose: Not Given Documented by: Sodium Chloride (Sodium Chloride 0.65% Na Soln 45 Ml (Shelby)) 1 - 2 sprays NA PRN PRN PRN Reason: Nasal Dryness/Congestion Stop: 11/19/19 06:43 Mental Health & Subst Abuse Tx Therapist Name of Therapist: None Video Editor Name of Video Editor: [employer] Malik Cline Phone Number for Video Editor: [phone] Case Management Appointment Comment: [facility] Post Discharge Appointments Primary Care Physician Name Of Family Doctor: [facility] Primary Care Provider Appointment Comment: [facility] Contact Information Discharge Discharge Address: Local Address: [address], [address], [place], [place] Contact Information Comment: Permanent [address]: [address] [place] [id number] (1) Psychotic disorder Psychosis type: unspecified psychosis type Qualified Code(s): F29 - Unspecified psychosis not due to a substance or known physiological condition
[2019-11-01] MEDS: MULTIVITAMIN TAB PO SCH (14:41)
[2019-11-02] MEDS: LORazepam 1 MG TAB PO SCH ×2 (09:30→17:20)
[2019-11-02] MEDS: haloperidoL 5 MG TAB PO SCH ×2 (09:30→17:18)
[2019-11-02] MEDS: MULTIVITAMIN TAB PO SCH (09:30)
--- NOTE | 2019-11-02 09:32 | Psychiatric Progress Note ---
Date of Service November 02, 2019 Impression / Recommendations Impression 19 yo female with no prior psychiatric history who presented with acute onset of severe thought disorganization with blocking and delusions. 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 She was resistant to medication and was placed on a 302 commitment after requesting to leave treatment. By the third day of the hospitalization the patient's condition had not improved at all, and in fact, she became more disorganized and psychotic. She was placed on a 303 on 10/26/2019, and medications over objection recommended by 2 psychiatrists. She has required IM injections for medication over objection, intermittently with need for physical hold to ensure safety of patient and staff while medications were being delivered. More recently, patient has been taking oral medications but not without significant encouragement from staff. She only recently has started to show brief moments of insight into her illness and need for treatment. Patient's mother was permitted to visit in-person based on treatment team discussion, and visit went well. Pt remains severely thought blocked and delusional at times, and is not consistently able to rationally manipulate information, provide for her own basic needs, or appreciate the severity of her symptoms. Inpatient treatment remains medically necessary as she is unable to provide for her basic needs including nutrition and medication, and remains at acute risk of harm to self and others if she were to be discharged to the community at this time. (1) Psychotic disorder: 10/19--The patient was admitted to the [facility] ([facility]) on q15 min checks (behavioral with suicide precautions) for safety. The patient will participate in group, recreational, and milieu therapies and will be offered additional individual and family sessions as clinically appropriate. She is not able to fully understand risks/benefits of antipsychotic medications at this time and will be offered Risperdal 0.5 mg BID today with likely titration. Additional Risperdal and Ativan prn agitation as appears quite paranoid. Fasting labs in am as likely to be discharged on atypical. 10/20--tolerating medications so far, need to increase Risperdal to 1 mg BID and Ativan prn to 1 mg for severity of symptoms. Consider switch to Zyprexa if remains sleepless. 302 completed. Will reattempt fasting labs in am as patient ate prior to draw. 9/7--will add standing Ativan 1 mg BID (2nd dose with evening meal) given catatonic features and given lack of sleep and possible need for IM prep, hold Risperdal tonight in favor of 1 time dose of Zyprexa 5 mg hs. If benefit, primary team can decide which atypical to continue with tomorrow. It is my medical opinion that Isra is unable to care for herself outside of the hospital setting and that worsening of her psychosis or significant harm to self or others is likely within the next 30 days if she does not receive antipsychotic medication. This is necessary even over her objection to restore functioning to participate in care and treatment planning. 10/22 -Zyprexa 5 mg at bedtime last evening seem not to have been particularly effective. We resumed risperidone at a higher dose today at risperidone 2 mg twice a day. In addition, medications over objection were ordered. -The patient continues to resist most oral medications, or will only take oral medications with a great deal of active encouragement and support from staff. Medications over objection will be haloperidol 5 mg IM twice daily for refusal of p.o. risperidone. -What we are seeing may be a first episode of virginia, but the presentation is atypical and the onset seems to be quite rapid. While it seems unlikely that marijuana alone could explain the current clinical presentation, we are concerned that perhaps the patient has taken a synthetic drug with the marijuana or has used phencyclidine (PCP). The plan is to attempt to acidify the patient's urine to help clear drug such as PCP. Accordingly, ascorbic acid (vitamin C) has been ordered 1000 mg daily, starting tomorrow has been ordered. 10/23 - Orders adjusted as patient has required medications over objection. Pt received haloperidol 10mg, lorazepam 1mg, and benztropine 2mg IM. Scheduled oral medication, which patient has been refusing, was adjusted to 2mg BID of risperidone ODT as of yesterday. Will continue BID dosing, with IM's for medication refusal. - Orders for prn doses of oral risperidone, as well as IM haloperidol and loraz epam ordered for severe psychosis/agitation. - Pt continues to occupy DANIELLE and remains on a MNPR 10/24 - Continue orders as above - patient required IM medications over objection this morning due to refusal of PO risperidone - Dose of IM lorazepam was titrated to 2mg BID, due to catatonia being included in differential diagnosis - Pt continues to require the DANIELLE for ongoing psychosis with associated behavioral concerns, she remains on MNPR 10/25 -The patient remains floridly psychotic, but today showing some signs of improvement. She is occasionally able to have a brief reality based exchange, although her answers are generally given 1 or 2 words and there may be a delay of 30 to 40 seconds before she responds. -Today, the patient was given medication over objection, but did not require ma nual hold and trusted staff well enough to cooperate. -She has appeared on several occasions as if she is considering whether to take her antipsychotic medications orally and given her marketed delay in response times we have been giving her several minutes to consider taking the medication and waiting until she indicates that she is declining. -The question of whether the patient's mother should be permitted to visit the patient was considered this morning by the team. It was agreed that it might be better to wait until the patient is more organized. I asked the patient if she would like a visit from her mother, and after the question was repeated several times over several minutes, the patient did not respond. 10/26 - the patient continues to show thought blocking with delay in speech and poverty of speech, and absence of spontaneous speech. She is now making some sensical statements such as she is aware she is at the hospital and perceives the staff is trying to help her, she is not resisting medication even stating she wants to take medication but remains too disorganized to move her hand with the pill to her mouth, so is receiving IM injections without a physical hold. Although not substantial, her ability to be less spontaneously delusional, offer small sentences of sensical conversation, acceptance of medications are subtle signs of improvement. It is unclear if there is residual element of catatonia as she is receiving ativan 1mg bid in her IM meds - vitals are minimal lately, will check and watch for autonomic instability, but no echolalia, no echopraxia, no negativism seen, no purposeless movement and not posturing, but the degree of her disorganization and flatness and odd manner of relating to her body are suspicious. Will monitor for now and continue with offering risperdal 2mg Mtab 2mg po bid and if unable to take or refuses then injections IM over objection with haldol 10mg/cogentin 2mg bid but increase the ativan to 2mg po bid to target any residual catatonia watching to assure she is not sedated. Continue to support po intake with packaged food, and make available video visit with mother until mother can visit. Continue MNPR and DANIELLE area 10/27 - continue plan as above. she is showing slow subtle improvement as she has more moments of speech where she communicates her thoughts but is still far from her pre-morbid level of functioning, She is still unable to take po meds by her own volition. I will offer a challenge of ativan 1mg this afternoon will offer po, but may need to give IM to see if she is less blocked as in catatonic. Vitals are stable, risk is sedation which we will need to monitor. Continue to offer risperdal 2mg po bid m-tab with haldol/cogentin/ativan IM for refusal. 10/28 - Continue current treatment plan - patient did receive an oral dose of risperidone 2mg and lorazepam 2mg this morning, though continues to demonstrate impaired insight regarding her need for treatment. - Ongoing delusions and paranoia, with only brief episodes of somewhat more reality-based comments. Pt continues to be very ill and requires the support and supervision of an inpatient unit. - Treatment team decision to allow patient's mother to visit in person - Continue MNPR and DANIELLE access availability 10/29 -Patient took risperidone 2 mg twice daily yesterday, will continue this dose and monitor for orthostatic hypotension (BP 110/71 today, pulse 106). -Fasting labs ordered for tomorrow for monitoring on an atypical antipsychotic. -Continue private room and excuse from groups given severity of psychotic symptoms. -Social work to coordinate with [facility] Office of Student Care and Advocacy. 10/30 - To improve medication consistency and better evaluate patient's response to her medication regimen, we will plan to adjust medication regimen to haloperidol - both for oral agent and IM injections as necessary. Will continue with current dosing of 10mg BID and titrate as necessary. - Fasting labs obtained this morning and reviewed with patient - all values WNL - Continue MNPR - consider ability to step down from DANIELLE as possible 10/31 - Continue current medication regimen - haloperidol 10mg BID and lorazepam 2mg BID as oral medications, with same medications ordered IM for medications over objection - Discussed recommendation to more afternoon medication dose to evening, given reports of increased daytime fatigue - patient is declining at this time to make any adjustments. - Continue MNPR 11/01 - Continue current medication regimen - will adjust afternoon dosing to later in the evening, with eventual hopes to move to as patient demonstrates more consistency with oral medications - Initiated conversation regarding eventual switch to an atypical antipsychotic, and recommendation for consideration of an MONTES. Pt asked appropriate questions - will continue to offer resources and engage patient in discussion. - Continue MNPR - Continue to attempt to engage patient in aftercare and discharge planning when appropriate Inventory Assets Strengths: intelligence, family support Needs: improve insight into her condition Risk Factors Assessment Do You Have Access To A Gun?: No Previous Attempt: No Previous Psychiatric Hospitalization: No Protective Factors Assessment Employed: No Supportive Family: Yes Interval History Identifying Information ISRA GARCIA is a 19-year-old F, [employer] Senior from [place], has no prior psych history and was admitted on 10/20/19 05:34 on a 201 voluntary commitment for disorganized behavior/psychosis. She was then placed on a 302 and is on a 303 as of 10/26/2019. Chief Complaint "I feel lost. I asked if a manager social could talk to me, but since you're here will you do it?" Review of Systems Notes Constitutional: admits to ongoing daytime fatigue Cardiovascular: denied Respiratory: denied Gastrointestinal: denied Neurological: denied Psychiatric: denies symptoms other than stated above Total of at least 10 systems reviewed, pertinent positives as above and in HPI. Sleep Information Total Hours of Sleep: 7 Sleep Comments: pt on q-15 minute checks Meal Information Percent Meal Consumed - Breakfast: 50 Percent Meal Consumed - Lunch: 50 Percent Meal Consumed - Dinner: 100 Nutrition Comment: Pt has been sleeping a large part of the evening Subjective Subjective Patient was seen & assessed and interval progress reviewed with treatment team. Staff report the patient continues to demonstrate more severe paranoia and thought blocking in the mornings when compared to the afternoons. Pt reportedly attended groups last evening and participated appropriately. This morning, kellen gann, patient admitted to the group that she was suspicious and thoughts the group was judging her. While taking her AM medications, patient also told the nurse that she is only hear to "quit smoking." Pt was seen today to assess progress since admission. Pt was found to be in her room, and admitted "I feel lost. I asked if a manager social could talk to me, but since you're here will you do it.?" Pt was asked more about feeling lost, but could not describe what she thinks is leading to this. Pt does state "I think the medicine is helping." Pt admits that she is not sure why she is in the hospital or what she needs to do to leave. Pt was asked what she is able to recall. She admits that she "smoked some bad weed, and I think that made me paranoid." She admits that she has been feeling "under a lot of pressure" and "self-medicating with the weed." Pt states that she had been smoking on a regular basis for most of the quarantine. Pt reports that she had been talking to a counselor at [facility] about her stress, but "I felt like I couldn't tell them everything." Pt then shares a story of a friend trying to engage her in "like a [employer] scheme" to earn extra income "since I applied to a bunch of internships but didn't get into any, and I have no idea what the job market will be like." [ [employer] - learning about foreign money exchange and forex markets]. Pt states that she felt she didn't understand the company and became worried when she started seeing international bank transactions. Pt states that when she tried to cancel her membership that her phone was hacked, which was also worrisome to her. After explaining this situation, patient is unable to explain how she feels it relates to her current presentation. Pt was agreeable to conversation about her current medication regimen, but does inquire "wait, what even is my diagnosis?" This is the first time the patient has been able to participate in a conversation of this nature and asked very appropriate questions. We discussed that while we cannot rule out substance- induced psychosis, we need to prepare for the possibility that patient may have a long-term mental illness. We discussed medications and opportunity for Bulmaro. Pt tolerated the conversation well. She is interested in speaking with a manager social to start focusing on discharge plans and states she thinks she will be open to discussing alternative medication options over the next few days. Pt denied other questions at this time. Physical Exam Psychiatric Orientation: alert, oriented to person, oriented to place and + guarded (continues to seem suspicious, but cooperative with conversation) Apperance: appropriately dressed, appropriately groomed and appeared stated age Eye Contact: good eye contact Motor Behavior: no abnormal motor movements (observed while sitting upright in bed) and + psychomotor retardation (improved, but remains somewhat slowed) Speech: normal rate/rhythm/volume of speech Affect: + flat affect Mood: + depressed mood and + anxious mood reporting today "I feel lost" Thought Process: goal directed thought process and + concrete thought process Thought Content: + paranoid (continues to admit to suspicion of others) and + delusions (though less focused, increased moments of reality-based conversation) Suicidal Thoughts: denies suicidal thoughts Homicidal Thoughts: denies homicidal thoughts Hallucinations: no auditory hallucinations and no visual hallucinations Cognition: attention grossly intact and language grossly intact Insight: + impaired insight (but slowly improving) Judgement: + impaired judgement Vital Signs (Past 24 Hours) Last Vital Signs Temp 36.4 C L 11/02/19 06:46 Pulse 90 11/02/19 06:46 Resp 16 11/02/19 06:46 BP 104/68 11/02/19 06:46 Pulse Ox 100 10/20/19 06:26 Results & Data ([facility]) Current Inpatient Medications Current Inpatient Medications: Current Inpatient Medications Acetaminophen (Acetaminophen 325 Mg Tab) 650 mg PO Q4H PRN PRN Reason: Headache or Minor Fever Stop: 11/19/19 06:43 Last Admin: 10/20/19 18:30 Dose: 650 mg Documented by: Al Hydrox/Mg Hydrox/Simethicone (Aluminum/Magnesium Susp 30 Ml Udc) 30 ml PO Q4H PRN PRN Reason: GI Upset Stop: 11/19/19 06:43 Benztropine Mesylate (Benztropine Mesylate 0.5 Mg Tab) 0.5 mg PO Q6 PRN PRN Reason: Muscle Spasm Stop: 11/19/19 12:28 Last Admin: 10/23/19 16:26 Dose: 0.5 mg Documented by: Benztropine Mesylate (Benztropine Mesylate 1 Mg/Ml 2 Ml Amp) 2 mg IM BID@0900,1500 PRN PRN Reason: refusal of PO medication Stop: 11/27/19 14:59 Bismuth Subsalicylate (Bismuth Subsalicylate Per Ml Omnicell Charge) 15 ml PO PRN PRN PRN Reason: Loose Stool Stop: 11/19/19 06:43 Haloperidol (Haloperidol 5 Mg Tab) 10 mg PO BID@0900,1500 [facility] Stop: 11/30/19 14:59 Last Admin: 11/01/19 14:44 Dose: 10 mg Documented by: Haloperidol (Haloperidol 5 Mg Tab) 5 mg PO Q6H PRN PRN Reason: agitation/severe psychosis Stop: 11/30/19 10:08 Haloperidol Lactate (Haloperidol Lactate 5 Mg/Ml 1 Ml Vial) 5 mg IM Q6H PRN PRN Reason: Agitation/Severe Psychosis Stop: 11/23/19 13:14 Haloperidol Lactate (Haloperidol Lactate 5 Mg/Ml 1 Ml Vial) 10 mg IM BID PRN PRN Reason: Refusal of PO medication Stop: 11/23/19 13:14 Hydroxyzine HCl (Hydroxyzine Hcl 25 Mg Tab) 50 mg PO HSZ PRN PRN Reason: Insomnia Stop: 11/19/19 06:43 Last Admin: 10/23/19 20:06 Dose: 50 mg Documented by: Hydroxyzine HCl (Hydroxyzine Hcl 25 Mg Tab) 25 mg PO Q4H PRN PRN Reason: Anxiety Stop: 11/19/19 06:43 Lorazepam (Lorazepam 1 Mg Tab) 1 mg PO Q6 PRN PRN Reason: Anxiety/Agitation Stop: 11/19/19 12:28 Last Admin: 10/23/19 20:06 Dose: 1 mg Documented by: Lorazepam (Lorazepam 2 Mg/Ml Vial (Im Use)) 2 mg IM BID PRN PRN Reason: PO med refusal Stop: 11/23/19 09:00 Last Admin: 10/28/19 14:19 Dose: 2 mg Documented by: Lorazepam (Lorazepam 1 Mg Tab) 2 mg PO BID@0900,1500 [facility] Stop: 11/27/19 14:59 Last Admin: 11/01/19 14:44 Dose: 2 mg Documented by: Magnesium Hydroxide (Magnesium Hydroxide Susp 30 Ml Udc) 30 ml PO DAILY PRN PRN Reason: Constipation Stop: 11/19/19 06:43 Menthol (Cough Drop (Sugar Free) Junito 24 Junito/1 Box) 1 junito BUCCAL Q1H PRN PRN Reason: Sore Throat/Cough Stop: 11/29/19 12:11 Last Admin: 10/30/19 14:29 Dose: 1 junito Documented by: Multivitamins (Multivitamin Tab) 1 tab PO QAM DANUTA Stop: 11/19/19 08:59 Last Admin: 11/01/19 14:41 Dose: Not Given Documented by: Sodium Chloride (Sodium Chloride 0.65% Na Soln 45 Ml ([employer])) 1 - 2 sprays NA PRN PRN PRN Reason: Nasal Dryness/Congestion Stop: 11/19/19 06:43 Mental Health & Subst Abuse Tx Therapist Name of Therapist: None Manager Strategic Marketing Name of Manager Strategic Marketing: [facility] - [place] Phone Number for Manager Strategic Marketing: [phone] Case Management Appointment Comment: [address] Post Discharge Appointments Primary Care Physician Name Of Family Doctor: MAYITO Arminda Primary Care Provider Appointment Comment: [facility] Contact Information Discharge Discharge Address: Local Address: [address], [address], [place], [place] Contact Information Comment: Permanent [address]: [address] [place] [id number] (1) Psychotic disorder Psychosis type: unspecified psychosis type Qualified Code(s): F29 - Unspecified psychosis not due to a substance or known physiological condition
[2019-11-02] MEDS ORDERED: BENZTROPINE MESYLATE 1 MG/ML 2 ML AMP IM PRN (17:30)
[2019-11-03] MEDS: MULTIVITAMIN TAB PO SCH (08:25)
[2019-11-03] MEDS: LORazepam 1 MG TAB PO SCH ×2 (08:25→17:36)
[2019-11-03] MEDS: haloperidoL 5 MG TAB PO SCH ×2 (08:25→17:37)
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
[2019-11-04] MEDS: haloperidoL 5 MG TAB PO SCH ×2 (09:30→17:37)
[2019-11-04] MEDS: LORazepam 1 MG TAB PO SCH ×2 (09:30→17:37)
[2019-11-04] MEDS: MULTIVITAMIN TAB PO SCH (09:30)
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
[2019-11-04 12:22] LABS: Appearance Urine Clear (Clear); Bacteria Urine Automated Negative (Negative); Bilirubin Urine Negative (Negative); Blood Urine Negative (Negative); Cast Urine Automated 0 /lpf (0-5); Color Urine Yellow; Glucose Urine UA Negative (Negative); Ketones Urine Negative (Negative); Leukocyte Esterase Urine Trace (Negative); Nitrite Urine Negative (Negative); Protein Urine Negative (Negative); RBC Urine Automated 0-4 /hpf (0-4); Specific Gravity Urine 1.007 (1.000-1.030); Urobilinogen Urine Negative (Negative); pH Urine 7.5 (4.5-7.5)
[2019-11-04 12:33] LABS: Pregnancy Test, Urine Negative (Negative)
[2019-11-05] MEDS: haloperidoL 5 MG TAB PO SCH (08:41)
[2019-11-05] MEDS: LORazepam 1 MG TAB PO SCH ×2 (08:41→17:44)
[2019-11-05] MEDS: MULTIVITAMIN TAB PO SCH (08:41)
[2019-11-05] MEDS ORDERED: PALIPERIDONE 3 MG TABCR PO ONE (11:22)
--- NOTE | 2019-11-05 11:37 | Psychiatric Progress Note ---
Date of Service November 05, 2019 Impression / Recommendations Impression 19 yo female with no prior psychiatric history who presented with acute onset of severe thought disorganization with blocking and delusions. 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 She was resistant to medication and was placed on a 302 commitment after requesting to leave treatment. By the third day of the hospitalization the patient's condition had not improved at all, and in fact, she became more disorganized and psychotic. She was placed on a 303 on 10/26/2019, and medications over objection recommended by 2 psychiatrists. She has required IM injections for medication over objection, intermittently with need for physical hold to ensure safety of patient and staff while medications were being delivered. More recently, patient has been taking oral medications but not without significant encouragement from staff. She only recently has started to show brief moments of insight into her illness and need for treatment. Patient's mother was permitted to visit in-person based on treatment team discussion, and visit went well. Pt remains severely thought blocked and delusional at times, and is not consistently able to rationally manipulate information, provide for her own basic needs, or appreciate the severity of her symptoms. Inpatient treatment remains medically necessary as she is unable to provide for her basic needs including nutrition and medication, and remains at acute risk of harm to self and others if she were to be discharged to the community at this time. (1) Psychotic disorder: 10/19--The patient was admitted to the [facility] ([facility] unit) on q15 min checks (behavioral with suicide precautions) for safety. The patient will participate in group, recreational, and milieu therapies and will be offered additional individual and family sessions as clinically appropriate. She is not able to fully understand risks/benefits of antipsychotic medications at this time and will be offered Risperdal 0.5 mg BID today with likely titration. Additional Risperdal and Ativan prn agitation as appears quite paranoid. Fasting labs in am as likely to be discharged on atypical. 10/20--tolerating medications so far, need to increase Risperdal to 1 mg BID and Ativan prn to 1 mg for severity of symptoms. Consider switch to Zyprexa if remains sleepless. 302 completed. Will reattempt fasting labs in am as patient ate prior to draw. 9/7--will add standing Ativan 1 mg BID (2nd dose with evening meal) given catatonic features and given lack of sleep and possible need for IM prep, hold Risperdal tonight in favor of 1 time dose of Zyprexa 5 mg hs. If benefit, primary team can decide which atypical to continue with tomorrow. It is my medical opinion that Isra is unable to care for herself outside of the hospital setting and that worsening of her psychosis or significant harm to self or others is likely within the next 30 days if she does not receive antipsychotic medication. This is necessary even over her objection to restore functioning to participate in care and treatment planning. 10/22 -Zyprexa 5 mg at bedtime last evening seem not to have been particularly effective. We resumed risperidone at a higher dose today at risperidone 2 mg twice a day. In addition, medications over objection were ordered. -The patient continues to resist most oral medications, or will only take oral medications with a great deal of active encouragement and support from staff. Medications over objection will be haloperidol 5 mg IM twice daily for refusal of p.o. risperidone. -What we are seeing may be a first episode of virginia, but the presentation is atypical and the onset seems to be quite rapid. While it seems unlikely that marijuana alone could explain the current clinical presentation, we are concerned that perhaps the patient has taken a synthetic drug with the marijuana or has used phencyclidine (PCP). The plan is to attempt to acidify the patient's urine to help clear drug such as PCP. Accordingly, ascorbic acid (vitamin C) has been ordered 1000 mg daily, starting tomorrow has been ordered. 10/23 - Orders adjusted as patient has required medications over objection. Pt received haloperidol 10mg, lorazepam 1mg, and benztropine 2mg IM. Scheduled oral medication, which patient has been refusing, was adjusted to 2mg BID of risperidone ODT as of yesterday. Will continue BID dosing, with IM's for medication refusal. - Orders for prn doses of oral risperidone, as well as IM haloperidol and lorazepam ordered for severe psychosis/agitation. - Pt continues to occupy DANIELLE and remains on a MNPR 10/24 - Continue orders as above - patient required IM medications over objection this morning due to refusal of PO risperidone - Dose of IM lorazepam was titrated to 2mg BID, due to catatonia being included in differential diagnosis - Pt continues to require the DANIELLE for ongoing psychosis with associated behavioral concerns, she remains on MNPR 10/25 -The patient remains floridly psychotic, but today showing some signs of improvement. She is occasionally able to have a brief reality based exchange, although her answers are generally given 1 or 2 words and there may be a delay of 30 to 40 seconds before she responds. -Today, the patient was given medication over objection, but did not require manual hold and trusted staff well enough to cooperate. -She has appeared on several occasions as if she is considering whether to take her antipsychotic medications orally and given her marketed delay in response times we have been giving her several minutes to consider taking the medication and waiting until she indicates that she is declining. -The question of whether the patient's mother should be permitted to visit the patient was considered this morning by the team. It was agreed that it might be better to wait until the patient is more organized. I asked the patient if she would like a visit from her mother, and after the question was repeated several times over several minutes, the patient did not respond. 10/26 - the patient continues to show thought blocking with delay in speech and poverty of speech, and absence of spontaneous speech. She is now making some sensical statements such as she is aware she is at the hospital and perceives the staff is trying to help her, she is not resisting medication even stating she wants to take medication but remains too disorganized to move her hand with the pill to her mouth, so is receiving IM injections without a physical hold. Although not substantial, her ability to be less spontaneously delusional, offer small sentences of sensical conversation, acceptance of medications are subtle signs of improvement. It is unclear if there is residual element of catatonia as she is receiving ativan 1mg bid in her IM meds - vitals are minimal lately, will check and watch for autonomic instability, but no echolalia, no echopraxia, no negativism seen, no purposeless movement and not posturing, but the degree of her disorganization and flatness and odd manner of relating to her body are suspicious. Will monitor for now and continue with offering risperdal 2mg Mtab 2mg po bid and if unable to take or refuses then injections IM over objection with haldol 10mg/cogentin 2mg bid but increase the ativan to 2mg po bid to target any residual catatonia watching to assure she is not sedated. Continue to support po intake with packaged food, and make available video visit with mother until mother can visit. Continue MNPR and DANIELLE area 10/27 - continue plan as above. she is showing slow subtle improvement as she has more moments of speech where she communicates her thoughts but is still far from her pre-morbid level of functioning, She is still unable to take po meds by her own volition. I will offer a challenge of ativan 1mg this afternoon will offer po, but may need to give IM to see if she is less blocked as in catatonic. Vitals are stable, risk is sedation which we will need to monitor. Continue to offer risperdal 2mg po bid m-tab with haldol/cogentin/ativan IM for refusal. 10/28 - Continue current treatment plan - patient did receive an oral dose of risperidone 2mg and lorazepam 2mg this morning, though continues to demonstrate impaired insight regarding her need for treatment. - Ongoing delusions and paranoia, with only brief episodes of somewhat more reality-based comments. Pt continues to be very ill and requires the support and supervision of an inpatient unit. - Treatment team decision to allow patient's mother to visit in person - Continue MNPR and DANIELLE access availability 10/29 -Patient took risperidone 2 mg twice daily yesterday, will continue this dose and monitor for orthostatic hypotension (BP 110/71 today, pulse 106). -Fasting labs ordered for tomorrow for monitoring on an atypical antipsychotic. -Continue private room and excuse from groups given severity of psychotic symptoms. -Social work to coordinate with [facility] Office of Student Care and Advocacy. 10/30 - To improve medication consistency and better evaluate patient's response to her medication regimen, we will plan to adjust medication regimen to haloperidol - both for oral agent and IM injections as necessary. Will continue with current dosing of 10mg BID and titrate as necessary. - Fasting labs obtained this morning and reviewed with patient - all values WNL - Continue MNPR - consider ability to step down from DANIELLE as possible 10/31 - Continue current medication regimen - haloperidol 10mg BID and lorazepam 2mg BID as oral medications, with same medications ordered IM for medications over objection - Discussed recommendation to more afternoon medication dose to evening, given reports of increased daytime fatigue - patient is declining at this time to make any adjustments. - Continue MNPR 11/01 - Continue current medication regimen - will adjust afternoon dosing to later in the evening, with eventual hopes to move to as patient demonstrates more consistency with oral medications - Initiated conversation regarding eventual switch to an atypical antipsychotic, and recommendation for consideration of an MONTES. Pt asked appropriate questions - will continue to offer resources and engage patient in discussion. - Continue MNPR - Continue to attempt to engage patient in aftercare and discharge planning when appropriate 11/02 - much improved from last contact but ongoing delusions. - continue current meds and treatment plan, should readdress atypical soon as lower risk of TD longer term than Haldol but just consistently taking oral. 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 11/03 - improving, less delusional content/more redirectible. Continue current meds and treatment plan, will start tapering standing Ativan as mild sedation. 11/04 - Pt able to participate in discussion regarding cross-taper to a more ideal long-term medication option. Risks, benefits, and potential side effects of atypical antipsychotic options available in [place] were reviewed. Pt was agreeable with cross-taper to paliperidone. Will give one-time dose of paliperidone 3mg today, and begin taper of haloperidol. - Although though process is becoming more organized over the course of her admission, she continues to verbalize delusional thought content. - Discharge planning meeting scheduled for 11/06 to discuss status of the patient's scholarship, option to withdrawal from school, and where she will be living on discharge. - Continue to encourage participation in group and recreational programming - Maintain MNPR, though could consider over the next few days if appropriate to discontinue this Inventory Assets Strengths: intelligence, family support Needs: improve insight into her condition Risk Factors Assessment Do You Have Access To A Gun?: No Previous Attempt: No Previous Psychiatric Hospitalization: No Protective Factors Assessment Employed: No Supportive Family: Yes Interval History Identifying Information ISRA GARCIA is a 19-year-old F, [employer] Senior from [place], has no prior psych history and was admitted on 10/20/19 05:34 on a 201 voluntary commitment for disorganized behavior/psychosis. She was then placed on a 302 and is on a 303 as of 10/26/2019. Chief Complaint "Um, I feel like I'm doing a lot better." Review of Systems Notes Constitutional: reports daytime fatigue Cardiovascular: denied Respiratory: denied Gastrointestinal: denied Neurological: denied Psychiatric: denies symptoms other than stated above Total of at least 10 systems reviewed, pertinent positives as above and in HPI. Sleep Information Total Hours of Sleep: 6.5 Sleep Comments: pt on q-15 minute checks Meal Information Percent Meal Consumed - Breakfast: 75 Percent Meal Consumed - Lunch: 95 Percent Meal Consumed - Dinner: 90 Nutrition Comment: Pt has been sleeping a large part of the evening Subjective Subjective Patient was seen & assessed and interval progress reviewed with treatment team. Staff report the patient continued to be delusional over the weekend, believing she was to another patient on the unit. She was also intermittently suspicious of medications being handed to her. Overall, patient is reported to be less thought blocked. A meeting is scheduled with her mother and representatives from [employer] to discuss patient's academic and housing plans. Pt was seen today to assess progress since admission. Pt states that she is "doing a lot better" and feels as though "my thoughts seem to be more clear I guess." Pt had admitted to ongoing daytime fatigue and requested to discuss medications. We reviewed recommendation to consider cross-taper from haloperidol to an atypical antipsychotic that may be more ideal for long-term use. After discussion, patient was agreeable with trial of paliperidone and was willing to start dosage today. Pt was able to have a more coherent conversation about her discharge plans; however, she states she hopes to be able to continue her school work and graduate on time. We discussed that it may take several weeks to several months for true psychiatric stability after discharge and patient was provided with the recommendation from our unit that she consider withdrawing and attempting her classes next semester. Pt is aware of the meeting scheduled this week to discuss her options further. Pt denies SI as well as auditory or visual hallucinations. She denied other needs or concerns today. Physical Exam Psychiatric Orientation: alert, oriented x 3 and cooperative Apperance: appropriately dressed, appropriately groomed and appeared stated age Eye Contact: good eye contact Motor Behavior: no abnormal motor movements (observed while sitting in bed ) Speech: normal rate/rhythm/volume of speech (less delay in responses ) Affect: + blunted affect (subdued, but with a brighter affect compared to our last encounter) and mood congruent with affect Mood: no depressed mood ("a lot better") Thought Process: goal directed thought process and clear/coherent thought process Still somewhat concrete, as having difficulty processing discharge plans Thought Content: + preoccupation (with returning to school) and + delusions (still believes she was sexually assaluted) Suicidal Thoughts: denies suicidal thoughts, denies suicidal plan and denies suicidal intent Homicidal Thoughts: denies homicidal thoughts Hallucinations: no auditory hallucinations and no visual hallucinations Cognition: attention grossly intact and language grossly intact Insight: + impaired insight (though slowly improving ) Judgement: + impaired judgement Vital Signs (Past 24 Hours) Last Vital Signs Temp 36.5 C 11/05/19 06:51 Pulse 76 11/05/19 06:52 Resp 16 11/05/19 06:51 BP 100/66 11/05/19 06:52 Pulse Ox 100 10/20/19 06:26 Results & Data ([facility]) Laboratory Results Laboratory Results - last 24 hr 11/04/19 11/04/19 11:48 11:48 Urine Color Yellow Urine Appearance Clear Urine pH 7.5 Ur Specific [place] 1.007 Urine Protein Negative Urine Glucose (UA) Negative Urine Ketones Negative Urine Blood Negative Urine Nitrite Negative Urine Bilirubin Negative Urine Urobilinogen Negative Ur Leukocyte Esterase Trace H Urine WBC (Auto) 1-5 Urine RBC (Auto) 0-4 U Hyaline Cast (Auto) 0 U Epithel Cells (Auto) 10-20 H Urine Bacteria (Auto) Negative Urine Test Negative Current Inpatient Medications Current Inpatient Medications: Current Inpatient Medications Acetaminophen (Acetaminophen 325 Mg Tab) 650 mg PO Q4H PRN PRN Reason: Headache or Minor Fever Stop: 11/19/19 06:43 Last Admin: 10/20/19 18:30 Dose: 650 mg Documented by: Al Hydrox/Mg Hydrox/Simethicone (Aluminum/Magnesium Susp 30 Ml Udc) 30 ml PO Q4H PRN PRN Reason: GI Upset Stop: 11/19/19 06:43 Benztropine Mesylate (Benztropine Mesylate 0.5 Mg Tab) 0.5 mg PO Q6 PRN PRN Reason: Muscle Spasm Stop: 11/19/19 12:28 Last Admin: 10/23/19 16:26 Dose: 0.5 mg Documented by: Benztropine Mesylate (Benztropine Mesylate 1 Mg/Ml 2 Ml Amp) 2 mg IM BID@0900,1730 PRN PRN Reason: refusal of PO medication Stop: 12/02/19 17:29 Bismuth Subsalicylate (Bismuth Subsalicylate Per Ml Omnicell Charge) 15 ml PO PRN PRN PRN Reason: Loose Stool Stop: 11/19/19 06:43 Haloperidol (Haloperidol 5 Mg Tab) 5 mg PO Q6H PRN PRN Reason: agitation/severe psychosis Stop: 11/30/19 10:08 Haloperidol (Haloperidol 5 Mg Tab) 10 mg PO BID@0900,0 [facility] Stop: 12/02/19 17:29 Last Admin: 11/05/19 08:41 Dose: 10 mg Documented by: Haloperidol Lactate (Haloperidol Lactate 5 Mg/Ml 1 Ml Vial) 5 mg IM Q6H PRN PRN Reason: Agitation/Severe Psychosis Stop: 11/23/19 13:14 Haloperidol Lactate (Haloperidol Lactate 5 Mg/Ml 1 Ml Vial) 10 mg IM BID PRN PRN Reason: Refusal of PO medication Stop: 11/23/19 13:14 Hydroxyzine HCl (Hydroxyzine Hcl 25 Mg Tab) 50 mg PO HSZ PRN PRN Reason: Insomnia Stop: 11/19/19 06:43 Last Admin: 10/23/19 20:06 Dose: 50 mg Documented by: Hydroxyzine HCl (Hydroxyzine Hcl 25 Mg Tab) 25 mg PO Q4H PRN PRN Reason: Anxiety Stop: 11/19/19 06:43 Lorazepam (Lorazepam 1 Mg Tab) 1 mg PO Q6 PRN PRN Reason: Anxiety/Agitation Stop: 11/19/19 12:28 Last Admin: 10/23/19 20:06 Dose: 1 mg Documented by: Lorazepam (Lorazepam 2 Mg/Ml Vial (Im Use)) 2 mg IM BID PRN PRN Reason: PO med refusal Stop: 11/23/19 09:00 Last Admin: 10/28/19 14:19 Dose: 2 mg Documented by: Lorazepam (Lorazepam 1 Mg Tab) 1 mg PO BID@0900,1730 [facility] Stop: 12/04/19 17:29 Last Admin: 11/05/19 08:41 Dose: 1 mg Documented by: Magnesium Hydroxide (Magnesium Hydroxide Susp 30 Ml Udc) 30 ml PO DAILY PRN PRN Reason: Constipation Stop: 11/19/19 06:43 Menthol (Cough Drop (Sugar Free) Junito 24 Junito/1 Box) 1 junito BUCCAL Q1H PRN PRN Reason: Sore Throat/Cough Stop: 11/29/19 12:11 Last Admin: 10/30/19 14:29 Dose: 1 junito Documented by: Multivitamins (Multivitamin Tab) 1 tab PO QAM DANUTA Stop: 11/19/19 08:59 Last Admin: 11/05/19 08:41 Dose: 1 tab Documented by: Paliperidone (Paliperidone 3 Mg Tabcr) 3 mg PO NOW ONE Stop: 11/05/19 11:23 Sodium Chloride (Sodium Chloride 0.65% Na Soln 45 Ml ([place])) 1 - 2 sprays NA PRN PRN PRN Reason: Nasal Dryness/Congestion Stop: 11/19/19 06:43 Mental Health & Subst Abuse Tx Therapist Name of Therapist: None [employer] [employer] [facility] [facility] Name of [facility] [employer]: [facility] [place] Phone Number for [employer]: [phone] Case Management Appointment Comment: [address] [place] [address] Post Discharge Appointments Primary Care Physician Name Of Family Doctor: MAYITO Arminda Primary Care Provider Appointment Comment: [facility] Contact Information Discharge Discharge Address: Local Address: [address], [address], [place], [place] Contact Information Comment: Permanent [address]: [address] [place] [id number] (1) Psychotic disorder Psychosis type: unspecified psychosis type Qualified Code(s): F29 - Unspecified psychosis not due to a substance or known physiological condition
[2019-11-05] MEDS: BENZTROPINE MESYLATE 0.5 MG TAB PO PRN (14:23)
[2019-11-05] MEDS ORDERED: haloperidoL 5 MG TAB PO ONE (19:30)
[2019-11-06] MEDS: PALIPERIDONE 3 MG TABCR PO SCH (08:14)
[2019-11-06] MEDS: LORazepam 1 MG TAB PO SCH ×2 (08:14→17:35)
[2019-11-06] MEDS: MULTIVITAMIN TAB PO SCH (08:15)
[2019-11-06] MEDS: BENZTROPINE MESYLATE 0.5 MG TAB PO PRN (08:19)
[2019-11-06] MEDS ORDERED: haloperidoL 5 MG TAB PO SCH (09:00)
--- NOTE | 2019-11-06 11:38 | Psychiatric Progress Note ---
Date of Service November 06, 2019 Impression / Recommendations Impression 19 yo female with no prior psychiatric history who presented with acute onset of severe thought disorganization with blocking and delusions. 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 She was resistant to medication and was placed on a 302 commitment after requesting to leave treatment. By the third day of the hospitalization the patient's condition had not improved at all, and in fact, she became more disorganized and psychotic. She was placed on a 303 on 10/26/2019, and medications over objection recommended by 2 psychiatrists. She has required IM injections for medication over objection, intermittently with need for physical hold to ensure safety of patient and staff while medications were being delivered. More recently, patient has been taking oral medications but not without significant encouragement from staff. She only recently has started to show brief moments of insight into her illness and need for treatment. Patient's mother was permitted to visit in-person based on treatment team discussion, and visit went well. Pt remains severely thought blocked and delusional at times, and is not consistently able to rationally manipulate information, provide for her own basic needs, or appreciate the severity of her symptoms. Inpatient treatment remains medically necessary as she is unable to provide for her basic needs including nutrition and medication, and remains at acute risk of harm to self and others if she were to be discharged to the community at this time. (1) Psychotic disorder: 10/19--The patient was admitted to the [facility] ([facility] unit) on q15 min checks (behavioral with suicide precautions) for safety. The patient will participate in group, recreational, and milieu therapies and will be offered additional individual and family sessions as clinically appropriate. She is not able to fully understand risks/benefits of antipsychotic medications at this time and will be offered Risperdal 0.5 mg BID today with likely titration. Additional Risperdal and Ativan prn agitation as appears quite paranoid. Fasting labs in am as likely to be discharged on atypical. 10/20--tolerating medications so far, need to increase Risperdal to 1 mg BID and Ativan prn to 1 mg for severity of symptoms. Consider switch to Zyprexa if remains sleepless. 302 completed. Will reattempt fasting labs in am as patient ate prior to draw. 9/7--will add standing Ativan 1 mg BID (2nd dose with evening meal) given catatonic features and given lack of sleep and possible need for IM prep, hold Risperdal tonight in favor of 1 time dose of Zyprexa 5 mg hs. If benefit, primary team can decide which atypical to continue with tomorrow. It is my medical opinion that Isra is unable to care for herself outside of the hospital setting and that worsening of her psychosis or significant harm to self or others is likely within the next 30 days if she does not receive antipsychotic medication. This is necessary even over her objection to restore functioning to participate in care and treatment planning. 10/22 -Zyprexa 5 mg at bedtime last evening seem not to have been particularly effective. We resumed risperidone at a higher dose today at risperidone 2 mg twice a day. In addition, medications over objection were ordered. -The patient continues to resist most oral medications, or will only take oral medications with a great deal of active encouragement and support from staff. Medications over objection will be haloperidol 5 mg IM twice daily for refusal of p.o. risperidone. -What we are seeing may be a first episode of virginia, but the presentation is atypical and the onset seems to be quite rapid. While it seems unlikely that marijuana alone could explain the current clinical presentation, we are concerned that perhaps the patient has taken a synthetic drug with the marijuana or has used phencyclidine (PCP). The plan is to attempt to acidify the patient's urine to help clear drug such as PCP. Accordingly, ascorbic acid (vitamin C) has been ordered 1000 mg daily, starting tomorrow has been ordered. 10/23 - Orders adjusted as patient has required medications over objection. Pt received haloperidol 10mg, lorazepam 1mg, and benztropine 2mg IM. Scheduled oral medication, which patient has been refusing, was adjusted to 2mg BID of risperidone ODT as of yesterday. Will continue BID dosing, with IM's for medication refusal. - Orders for prn doses of oral risperidone, as well as IM haloperidol and lorazepam ordered for severe psychosis/agitation. - Pt continues to occupy DANIELLE and remains on a MNPR 10/24 - Continue orders as above - patient required IM medications over objection this morning due to refusal of PO risperidone - Dose of IM lorazepam was titrated to 2mg BID, due to catatonia being included in differential diagnosis - Pt continues to require the DANIELLE for ongoing psychosis with associated behavioral concerns, she remains on MNPR 10/25 -The patient remains floridly psychotic, but today showing some signs of improvement. She is occasionally able to have a brief reality based exchange, although her answers are generally given 1 or 2 words and there may be a delay of 30 to 40 seconds before she responds. -Today, the patient was given medication over objection, but did not require manual hold and trusted staff well enough to cooperate. -She has appeared on several occasions as if she is considering whether to take her antipsychotic medications orally and given her marketed delay in response times we have been giving her several minutes to consider taking the medication and waiting until she indicates that she is declining. -The question of whether the patient's mother should be permitted to visit the patient was considered this morning by the team. It was agreed that it might be better to wait until the patient is more organized. I asked the patient if she would like a visit from her mother, and after the question was repeated several times over several minutes, the patient did not respond. 10/26 - the patient continues to show thought blocking with delay in speech and poverty of speech, and absence of spontaneous speech. She is now making some sensical statements such as she is aware she is at the hospital and perceives the staff is trying to help her, she is not resisting medication even stating she wants to take medication but remains too disorganized to move her hand with the pill to her mouth, so is receiving IM injections without a physical hold. Although not substantial, her ability to be less spontaneously delusional, offer small sentences of sensical conversation, acceptance of medications are subtle signs of improvement. It is unclear if there is residual element of catatonia as she is receiving ativan 1mg bid in her IM meds - vitals are minimal lately, will check and watch for autonomic instability, but no echolalia, no echopraxia, no negativism seen, no purposeless movement and not posturing, but the degree of her disorganization and flatness and odd manner of relating to her body are suspicious. Will monitor for now and continue with offering risperdal 2mg Mtab 2mg po bid and if unable to take or refuses then injections IM over objection with haldol 10mg/cogentin 2mg bid but increase the ativan to 2mg po bid to target any residual catatonia watching to assure she is not sedated. Continue to support po intake with packaged food, and make available video visit with mother until mother can visit. Continue MNPR and DANIELLE area 10/27 - continue plan as above. she is showing slow subtle improvement as she has more moments of speech where she communicates her thoughts but is still far from her pre-morbid level of functioning, She is still unable to take po meds by her own volition. I will offer a challenge of ativan 1mg this afternoon will offer po, but may need to give IM to see if she is less blocked as in catatonic. Vitals are stable, risk is sedation which we will need to monitor. Continue to offer risperdal 2mg po bid m-tab with haldol/cogentin/ativan IM for refusal. 10/28 - Continue current treatment plan - patient did receive an oral dose of risperidone 2mg and lorazepam 2mg this morning, though continues to demonstrate impaired insight regarding her need for treatment. - Ongoing delusions and paranoia, with only brief episodes of somewhat more reality-based comments. Pt continues to be very ill and requires the support and supervision of an inpatient unit. - Treatment team decision to allow patient's mother to visit in person - Continue MNPR and DANIELLE access availability 10/29 -Patient took risperidone 2 mg twice daily yesterday, will continue this dose and monitor for orthostatic hypotension (BP 110/71 today, pulse 106). -Fasting labs ordered for tomorrow for monitoring on an atypical antipsychotic. -Continue private room and excuse from groups given severity of psychotic symptoms. -Social work to coordinate with [facility] Office of Student Care and Advocacy. 10/30 - To improve medication consistency and better evaluate patient's response to her medication regimen, we will plan to adjust medication regimen to haloperidol - both for oral agent and IM injections as necessary. Will continue with current dosing of 10mg BID and titrate as necessary. - Fasting labs obtained this morning and reviewed with patient - all values WNL - Continue MNPR - consider ability to step down from DANIELLE as possible 10/31 - Continue current medication regimen - haloperidol 10mg BID and lorazepam 2mg BID as oral medications, with same medications ordered IM for medications over objection - Discussed recommendation to more afternoon medication dose to evening, given reports of increased daytime fatigue - patient is declining at this time to make any adjustments. - Continue MNPR 11/01 - Continue current medication regimen - will adjust afternoon dosing to later in the evening, with eventual hopes to move to as patient demonstrates more consistency with oral medications - Initiated conversation regarding eventual switch to an atypical antipsychotic, and recommendation for consideration of an MONTES. Pt asked appropriate questions - will continue to offer resources and engage patient in discussion. - Continue MNPR - Continue to attempt to engage patient in aftercare and discharge planning when appropriate 11/02 - much improved from last contact but ongoing delusions. - continue current meds and treatment plan, should readdress atypical soon as lower risk of TD longer term than Haldol but just consistently taking oral. administrative support associate aware of patient allegations. 11/03 - improving, less delusional content/more redirectible. Continue current meds and treatment plan, will start tapering standing Ativan as mild sedation. 11/04 - Pt able to participate in discussion regarding cross-taper to a more ideal long-term medication option. Risks, benefits, and potential side effects of atypical antipsychotic options available in [place] were reviewed. Pt was agreeable with cross-taper to paliperidone. Will give one-time dose of paliperidone 3mg today, and begin taper of haloperidol. - Although though process is becoming more organized over the course of her admission, she continues to verbalize delusional thought content. - Discharge planning meeting scheduled for 11/06 to discuss status of the patient's scholarship, option to withdrawal from school, and where she will be living on discharge. - Continue to encourage participation in group and recreational programming - Maintain MNPR, though could consider over the next few days if appropriate to discontinue this 11/05 - Continue cross-taper from haloperidol to paliperidone - Support meeting tomorrow with mom and [employer] to discuss school options and recommendation that patient withdraw and return home Inventory Assets Strengths: intelligence, family support Needs: improve insight into her condition Risk Factors Assessment Do You Have Access To A Gun?: No Previous Attempt: No Previous Psychiatric Hospitalization: No Protective Factors Assessment Employed: No Supportive Family: Yes Interval History Identifying Information ISRA GARCIA is a 19-year-old F, [employer] Senior from [place], has no prior psych history and was admitted on 10/20/19 05:34 on a 201 voluntary commitment for disorganized behavior/psychosis. She was then placed on a 302 and is on a 303 as of 10/26/2019. Chief Complaint "I feel...a little tired." Review of Systems Notes Constitutional: reports ongoing fatigue Cardiovascular: denied Respiratory: denied Gastrointestinal: denied Neurological: denied Psychiatric: denies symptoms other than stated above Total of at least 10 systems reviewed, pertinent positives as above and in HPI. Sleep Information Total Hours of Sleep: 8 Sleep Comments: pt on q-15 minute checks Meal Information Percent Meal Consumed - Breakfast: 100 Percent Meal Consumed - Lunch: 100 Percent Meal Consumed - Dinner: 85 Nutrition Comment: Pt has been sleeping a large part of the evening Subjective Subjective Patient was seen & assessed and interval progress reviewed with nursing and social work. Staff report the patient has been participating in group programming. Pt received benztropine yesterday afternoon after reporting feeling "her legs were stuck." Pt was seen today to assess progress since admission. Pt states "I feel...a little tired." Pt admits, however, "I feel like I'm getting better." Pt admits that although she is fatigued, she feels attending groups has offered a distraction. Pt feels groups have been helpful for her. Pt states "I couldn't go to groups when I first came in, I had no idea what schedule I was on!" Pt reports sleep and appetite have been steady. Pt was updated on medication adjustments and other than fatigue, she denies any physical complaints. She was reminded of her meeting tomorrow afternoon. Pt denies current needs. Physical Exam Psychiatric Orientation: alert, oriented x 3 and cooperative Apperance: appropriately dressed, appropriately groomed and appeared stated age Eye Contact: good eye contact Motor Behavior: no abnormal motor movements (observed while laying in bed) Speech: normal rate/rhythm/volume of speech Affect: + blunted affect (appearing fatigued ) Mood: no depressed mood ("I feel like I'm getting better") Thought Process: goal directed thought process and + concrete thought process Thought Content: reality based without delusions (no reports from patient regarding delusional thought content); no hopelessness and no worthlessness Suicidal Thoughts: denies suicidal thoughts Homicidal Thoughts: denies homicidal thoughts Hallucinations: no auditory hallucinations and no visual hallucinations Cognition: attention grossly intact and language grossly intact Estimated Intelligence: consistent with education level Insight: + impaired insight Judgement: + impaired judgement Vital Signs (Past 24 Hours) Last Vital Signs Temp 36.6 C 11/06/19 06:25 Pulse 102 H 11/06/19 06:26 Resp 16 11/06/19 06:25 BP 111/77 11/06/19 06:26 Pulse Ox 100 10/20/19 06:26 Results & Data ([facility]) Current Inpatient Medications Current Inpatient Medications: Current Inpatient Medications Acetaminophen (Acetaminophen 325 Mg Tab) 650 mg PO Q4H PRN PRN Reason: Headache or Minor Fever Stop: 11/19/19 06:43 Last Admin: 10/20/19 18:30 Dose: 650 mg Documented by: Al Hydrox/Mg Hydrox/Simethicone (Aluminum/Magnesium Susp 30 Ml Udc) 30 ml PO Q4H PRN PRN Reason: GI Upset Stop: 11/19/19 06:43 Benztropine Mesylate (Benztropine Mesylate 0.5 Mg Tab) 0.5 mg PO Q6 PRN PRN Reason: Muscle Spasm Stop: 11/19/19 12:28 Last Admin: 11/06/19 08:19 Dose: 0.5 mg Documented by: Benztropine Mesylate (Benztropine Mesylate 1 Mg/Ml 2 Ml Amp) 2 mg IM BID@0900,1730 PRN PRN Reason: refusal of PO medication Stop: 12/02/19 17:29 Bismuth Subsalicylate (Bismuth Subsalicylate Per Ml Omnicell Charge) 15 ml PO PRN PRN PRN Reason: Loose Stool Stop: 11/19/19 06:43 Haloperidol (Haloperidol 5 Mg Tab) 5 mg PO Q6H PRN PRN Reason: agitation/severe psychosis Stop: 11/30/19 10:08 Haloperidol (Haloperidol 5 Mg Tab) 5 mg PO BID@0900,1730 DANUTA Stop: 12/06/19 08:59 Last Admin: 11/06/19 08:14 Dose: 5 mg Documented by: Haloperidol Lactate (Haloperidol Lactate 5 Mg/Ml 1 Ml Vial) 5 mg IM Q6H PRN PRN Reason: Agitation/Severe Psychosis Stop: 11/23/19 13:14 Haloperidol Lactate (Haloperidol Lactate 5 Mg/Ml 1 Ml Vial) 10 mg IM BID PRN PRN Reason: Refusal of PO medication Stop: 11/23/19 13:14 Hydroxyzine HCl (Hydroxyzine Hcl 25 Mg Tab) 50 mg PO HSZ PRN PRN Reason: Insomnia Stop: 11/19/19 06:43 Last Admin: 10/23/19 20:06 Dose: 50 mg Documented by: Hydroxyzine HCl (Hydroxyzine Hcl 25 Mg Tab) 25 mg PO Q4H PRN PRN Reason: Anxiety Stop: 11/19/19 06:43 Lorazepam (Lorazepam 1 Mg Tab) 1 mg PO Q6 PRN PRN Reason: Anxiety/Agitation Stop: 11/19/19 12:28 Last Admin: 10/23/19 20:06 Dose: 1 mg Documented by: Lorazepam (Lorazepam 2 Mg/Ml Vial (Im Use)) 2 mg IM BID PRN PRN Reason: PO med refusal Stop: 11/23/19 09:00 Last Admin: 10/28/19 14:19 Dose: 2 mg Documented by: Lorazepam (Lorazepam 1 Mg Tab) 1 mg PO BID@0900,1730 [facility] Stop: 12/04/19 17:29 Last Admin: 11/06/19 08:14 Dose: 1 mg Documented by: Magnesium Hydroxide (Magnesium Hydroxide Susp 30 Ml Udc) 30 ml PO DAILY PRN PRN Reason: Constipation Stop: 11/19/19 06:43 Menthol (Cough Drop (Sugar Free) Junito 24 Junito/1 Box) 1 junito BUCCAL Q1H PRN PRN Reason: Sore Throat/Cough Stop: 11/29/19 12:11 Last Admin: 10/30/19 14:29 Dose: 1 junito Documented by: Multivitamins (Multivitamin Tab) 1 tab PO QAM DANUTA Stop: 11/19/19 08:59 Last Admin: 11/06/19 08:15 Dose: 1 tab Documented by: Paliperidone (Paliperidone 3 Mg Tabcr) 6 mg PO QAM DANUTA Stop: 12/06/19 08:59 Last Admin: 11/06/19 08:14 Dose: 6 mg Documented by: Sodium Chloride (Sodium Chloride 0.65% Na Soln 45 Ml ([place])) 1 - 2 sprays NA PRN PRN PRN Reason: Nasal Dryness/Congestion Stop: 11/19/19 06:43 Mental Health & Subst Abuse Tx Therapist Name of Therapist: None Head Char Filter Tank Tender Name of Head Char Filter Tank Tender: [employer] - [place] Phone Number for Head Char Filter Tank Tender: [phone] Case Management Appointment Comment: [address] Post Discharge Appointments Primary Care Physician Name Of Family Doctor: MAYITO NELSON Primary Care Provider Appointment Comment: [facility] Contact Information Discharge Discharge Address: Local Address: [address], [address], [place], [place] Contact Information Comment: Permanent [address]: [address] [place] [address] (1) Psychotic disorder Psychosis type: unspecified psychosis type Qualified Code(s): F29 - Unspecified psychosis not due to a substance or known physiological condition
[2019-11-06] MEDS: haloperidoL 5 MG TAB PO SCH (17:35)
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
[2019-11-07] MEDS: LORazepam 0.5 MG TAB PO SCH ×2 (08:58→17:42)
[2019-11-07] MEDS: PALIPERIDONE 3 MG TABCR PO SCH (08:58)
[2019-11-07] MEDS: MULTIVITAMIN TAB PO SCH (08:58)
[2019-11-07] MEDS: haloperidoL 5 MG TAB PO SCH (17:42)
[2019-11-08] MEDS: LORazepam 0.5 MG TAB PO SCH ×2 (08:30→21:09)
[2019-11-08] MEDS: MULTIVITAMIN TAB PO SCH (08:30)
[2019-11-08] MEDS: PALIPERIDONE 3 MG TABCR PO SCH (08:30)
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
[2019-11-08] MEDS ORDERED: PALIPERIDONE 3 MG TABCR PO ONE (13:00)
[2019-11-09] MEDS: MULTIVITAMIN TAB PO SCH (08:34)
[2019-11-09] MEDS ORDERED: PALIPERIDONE 3 MG TABCR PO SCH (09:00)
[2019-11-09] MEDS: haloperidoL 5 MG TAB PO PRN ×2 (09:50→14:52)
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
[2019-11-09] MEDS: LORazepam 1 MG TAB PO PRN (14:52)
[2019-11-09] MEDS: haloperidoL 5 MG TAB PO SCH (19:51)
[2019-11-09] MEDS: LORazepam 0.5 MG TAB PO SCH (19:51)
[2019-11-09] MEDS: BENZTROPINE MESYLATE 0.5 MG TAB PO PRN (19:52)
[2019-11-10] MEDS: LORazepam 1 MG TAB PO PRN ×2 (04:53→12:05)
[2019-11-10] MEDS: haloperidoL 5 MG TAB PO PRN ×2 (04:54→12:05)
[2019-11-10 06:43] VITALS: TEMP 98.4
[2019-11-10] MEDS ORDERED: PALIPERIDONE 3 MG TABCR PO SCH (09:00)
[2019-11-10] MEDS: BENZTROPINE MESYLATE 0.5 MG TAB PO PRN (09:52)
[2019-11-10] MEDS: MULTIVITAMIN TAB PO SCH (09:53)
[2019-11-10] MEDS: haloperidoL 5 MG TAB PO SCH (09:53)
[2019-11-10] MEDS ORDERED: LORazepam 0.5 MG TAB PO SCH (13:08)
[2019-11-10] MEDS ORDERED: haloperidoL 5 MG TAB PO SCH ×2 (13:08→22:00)
[2019-11-10] MEDS ORDERED: BENZTROPINE MESYLATE 0.5 MG TAB PO SCH (13:08)
[2019-11-10 13:26] VITALS: BP 107/71; PULSE 80
--- NOTE | 2019-11-10 14:06 | Discharge Summary ---
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 attempt to acidify the patient's urine to help clear drug such as PCP. Accordingly, ascorbic acid (vitamin C) has been ordered 1000 mg daily, starting tomorrow has been ordered. 10/23 - Orders adjusted as patient has required medications over objection. Pt received haloperidol 10mg, lorazepam 1mg, and benztropine 2mg IM. Scheduled oral medication, which patient has been refusing, was adjusted to 2mg BID of risperidone ODT as of yesterday. Will continue BID dosing, with IM's for medication refusal. - Orders for prn doses of oral risperidone, as well as IM haloperidol and lorazepam ordered for severe psychosis/agitation. - Pt continues to occupy DANIELLE and remains on a MNPR 10/24 - Continue orders as above - patient required IM medications over objection this morning due to refusal of PO risperidone - Dose of IM lorazepam was titrated to 2mg BID, due to catatonia being included in differential diagnosis - Pt continues to require the DANIELLE for ongoing psychosis with associated beha vioral concerns, she remains on MNPR 10/25 -The patient remains floridly psychotic, but today showing some signs of improvement. She is occasionally able to have a brief reality based exchange, although her answers are generally given 1 or 2 words and there may be a delay of 30 to 40 seconds before she responds. -Today, the patient was given medication over objection, but did not require manual hold and trusted staff well enough to cooperate. -She has appeared on several occasions as if she is considering whether to take her antipsychotic medications orally and given her marketed delay in response times we have been giving her several minutes to consider taking the medication and waiting until she indicates that she is declining. -The question of whether the patient's mother should be permitted to visit the patient was considered this morning by the team. It was agreed that it might be better to wait until the patient is more organized. I asked the patient if she would like a visit from her mother, and after the question was repeated several times over several minutes, the patient did not respond. 10/26 - the patient continues to show thought blocking with delay in speech and po verty of speech, and absence of spontaneous speech. She is now making some sensical statements such as she is aware she is at the hospital and perceives the staff is trying to help her, she is not resisting medication even stating she wants to take medication but remains too disorganized to move her hand with the pill to her mouth, so is receiving IM injections without a physical hold. Although not substantial, her ability to be less spontaneously delusional, offer small sentences of sensical conversation, acceptance of medications are subtle signs of improvement. It is unclear if there is residual element of catatonia as she is receiving Ativan 1mg bid in her IM meds - vitals are minimal lately, will check and watch for autonomic instability, but no echolalia, no echopraxia, no negativism seen, no purposeless movement and not posturing, but the degree of her disorganization and flatness and odd manner of relating to her body are suspicious. Will monitor for now and continue with offering Risperdal 2mg Mtab 2mg po bid and if unable to take or refuses then injections IM over objection with Haldol 10mg/Cogentin 2mg bid but increase the Ativan to 2mg po bid to target any residual catatonia watching to assure she is not sedated. Continue to support po intake with packaged food, and make available video visit with mother until mother can visit. Continue MNPR and DANIELLE area 10/27 - continue plan as above. she is showing slow subtle improvement as she has more moments of speech where she communicates her thoughts but is still far from her pre-morbid level of functioning, She is still unable to take po meds by her own volition. I will offer a challenge of Ativan 1mg this afternoon will offer po, but may need to give IM to see if she is less blocked as in catatonic. Vi tals are stable, risk is sedation which we will need to monitor. Continue to offer Risperdal 2mg po bid m-tab with Haldol/Cogentin/Ativan IM for refusal. 10/28 - Continue current treatment plan - patient did receive an oral dose of risperidone 2mg and lorazepam 2mg this morning, though continues to demonstrate impaired insight regarding her need for treatment. - Ongoing delusions and paranoia, with only brief episodes of somewhat more reality-based comments. Pt continues to be very ill and requires the support and supervision of an inpatient unit. - Treatment team decision to allow patient's mother to visit in person - Continue MNPR and DANIELLE access availability 10/29 -Patient took risperidone 2 mg twice daily yesterday, will continue this dose and monitor for orthostatic hypotension (BP 110/71 today, pulse 106). -Fasting labs ordered for tomorrow for monitoring on an atypical antipsychotic. -Continue private room and excuse from groups given severity of psychotic symptoms. -Social work to coordinate with [facility] Office of Student Care and Advocacy. 10/30 - To improve medication consistency and better evaluate patient's response to her medication regimen, we will plan to adjust medication regimen to haloperidol - both for oral agent and IM injections as necessary. Will continue with current dosing of 10mg BID and titrate as necessary. - Fasting labs obtained this morning and reviewed with patient - all values WNL - Continue MNPR - consider ability to step down from DANIELLE as possible 10/31 - Continue current medication regimen - haloperidol 10mg BID and lorazepam 2mg BID as oral medications, with same medications ordered IM for medications over objection - Discussed recommendation to more afternoon medication dose to evening, given reports of increased daytime fatigue - patient is declining at this time to make any adjustments. - Continue MNPR 11/01 - Continue current medication regimen - will adjust afternoon dosing to later in the evening, with eventual hopes to move to as patient demonstrates more consistency with oral medications - Initiated conversation regarding eventual switch to an atypical antipsychotic, and recommendation for consideration of an MONTES. Pt asked appropriate questions - will continue to offer resources and engage patient in discussion. - Continue MNPR - Continue to attempt to engage patient in aftercare and discharge planning when appropriate 11/02 - much improved from last contact but ongoing delusions. - continue current meds and treatment plan, should readdress atypical soon as lower risk of TD longer term than Haldol but just consistently taking oral. administrative support manager aware of patient allegations. 11/03 - improving, less delusional content/more redirectible. Continue current meds and treatment plan, will start tapering standing Ativan as mild sedation. 11/04 - Pt able to participate in discussion regarding cross-taper to a more ideal long-term medication option. Risks, benefits, and potential side effects of atypical antipsychotic options available in [place] were reviewed. Pt was agreeable with cross-taper to paliperidone. Will give one-time dose of paliperidone 3mg today, and begin taper of haloperidol. - Although though process is becoming more organized over the course of her admission, she continues to verbalize delusional thought content. - Discharge planning meeting scheduled for 11/06 to discuss status of the patient's scholarship, option to withdrawal from school, and where she will be living on discharge. - Continue to encourage participation in group and recreational programming - Maintain MNPR, though could consider over the next few days if appropriate to discontinue this 11/05 - Continue cross-taper from haloperidol to paliperidone - Support meeting tomorrow with mom and [employer] to discuss school options and recommendation that patient withdraw and return home 11/06 -provisional diagnosis of schizophrenia -Continue paliperidone 6 mg daily. Her insurance will not cover Invega Sustenna, and there is no option for her to get it with a co-pay card. Paliperidone p.o. is covered and is affordable ($10/month). -Continue to taper off haloperidol and the rest of p.m. -Family meeting with mother and office of student care and advocacy today to discuss withdrawal from school and discharge planning. 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 11/07 - Titrating paliperidone to 9mg daily (pt to get supplemental 3mg dose this afternoon), and will discontinue haloperidol - Will taper lorazepam to 0.5mg only at HS. - Continue to coordinate aftercare options for IOP/PHP in patient's hometown - Would suggest discussing the ongoing delusions with mother to provide coordination and assist with transition to mother's care after discharge 11/08 - Due to some concern for destabilization yesterday, the patient was resumed on scheduled dosing of haloperidol 5mg BID to maintain stability and continue to target occasional thought blocking and disorganized thinking. Overall patient is still greatly improved from admission; however, we are attempting to prevent any further decompensation. - Continue paliperidone 9mg - haloperidol can be tapered to discontinuation on an outpatient basis as patient engages with the PHP. - Will continue to monitor, discharge home with parents was anticipated for tomorrow. Will follow-up tomorrow to assess whether or not this plan is still appropriate. Mental Health & Subst Abuse Tx Psychiatrist Name of Psychiatrist: [facility] Date of Appointment with Psychiatrist: 11/12/19 Time of Appointment with Psychiatrist: 11:30 Therapist Name of Therapist: None Document Review Specialist Name of Document Review Specialist: Student Care and Advocacy Malik Cline Phone Number for Document Review Specialist: [phone] Time of Appointment with Document Review Specialist: Follow up as a support to assist in withdrawal Case Management Appointment Comment: [facility] Post Discharge Appointments Primary Care Physician Name Of Family Doctor: MAYITO Arminda Primary Care Provider Appointment Comment: [facility] Partial or Psych Rehab Name of Partial or Psych Rehab: Catalina Liang - Dr Mehta Phone Number of Partial or Psych Rehab: [phone] Date of Appointment at Partial or Psych Rehab: 11/12/19 Time of Appointment at Partial or Psych Rehab: 11:30 a.m. Partial or Psych Rehab Appointment Comment: they will e-mail you information, they will call you Mon am to confirm Smoking Cessation Counseling Tobacco Cessation Medication Prescribed at Discharge: Not Applicable/Non-Smoker Contact Information Discharge Discharge Address: [address] [place] [address] Contact Information Comment: Permanent Address: [address] [place] [address] Discharge Plan Discharge Items Patient Disposition: Home - Self-Care Reason For Visit: UNSPECIFIED PSYCHOSIS Discharge Diagnosis: - Psychotic disorder, r/o schizophrenia Condition on Discharge: Fair Health Concerns: Patient will require continued supervision and additional support to ease the transition home from the hospital and ensure patient's safety on discharge. Activity: Resume your previous activity Non-emergency contact: Primary Care Provider, Psychiatrist and Therapist Call non-emergency contact if: you have any medication questions and your symptoms worsen Follow-up/Referrals: [facility] [Primary Care Provider] - Diet: Regular Addtl Attending Provider Instructions: SPECIAL CARE INSTRUCTIONS: 1. Follow through with your scheduled aftercare appointments. If unable to keep an appointment, please call to reschedule. 2. Take your medication only as prescribed. Medication should not be changed or stopped without the approval of your doctor. In the event of worsening symptoms or concerns about side effects, contact your doctor immediately. 3. Utilize new healthy coping skills, anger management skills, and stress management skills learned during your hospitalization. Journal feelings and process them with a support person. Identify stressors or situations that may result in relapse, deterioration or inappropriate behaviors and develop a plan to deal with those issues. 4. If your coping skills are ineffective and you are in crisis, contact your outpatient providers for direction. If unable to reach your providers, please call the [facility] CRISIS LINE AT , go to the [facility] walk-in center at [address], [address], [place], or go to the closest Emergency Room. 5. Avoid alcohol and un-prescribed drugs. 6. You have been provided with the Mental Health Advance Directives Pamphlet for your review. AFTERCARE APPOINTMENTS: * Please call your insurance company prior to your scheduled appointment to confirm your aftercare providers are covered. Take your insurance information to your appointments. SAFETY RECOMMENDATIONS: - Safety recommendations reviewed with you and your family. Medications have been changed to assist with ongoing stability and continued improvement. Please remain consistent with medications and utilize as needed medications throughout the day if necessary. - Reviewed safety related to transportation - as you all have an extended drive home. - Reviewed need for regular supervision and support to encourage smooth transition home. Crisis services reviewed. WHO TO CALL AND WHEN: Medical Emergencies: For questions or emergencies related to your hospital stay, please contact the Inpatient Behavioral Health Unit at [phone]. A blade boner is on-call 06/09 for the Behavioral Health Unit for emergencies At any time you feel your situation is an emergency, you may also call 911 immediately. Pending Studies at Discharge: No Stand-Alone Forms: [facility], Smoking Cessation, Suicide Prevention Resources Medications and DC Order Prescriptions: New benztropine 0.5 mg Tablet 0.5 mg PO Q6 PRN (Reason: muscle stiffness/dystonia) 30 Days Qty: 60 RF: 0 haloperidol 5 mg Tablet 5 mg PO UD 30 Days Qty: 120 RF: 0 lorazepam 0.5 mg Tablet 0.5 mg PO BID PRN (Reason: Anxiety) 3 Days Qty: 6 RF: 0 Continued Day Time PE 5-10-325 mg Capsule 1 cap PO UD MDD 4 doses PRN (Reason: Cold Symptoms) RF: 0 Night Time 6.25-15-325 mg Capsule 1 cap PO HS PRN (Reason: Cold Symptoms) RF: 0 Women's Multivitamin 18 mg-400 mcg- 500 mg-50 mcg Tablet 1 tab PO QAM RF: 0 Discharge Orders: Discharge Order (Routine); Ordered 11/10/19 Ordered By: Indigo Jaquez Admission Data Admit Date/Time: 10/20/19 05:34 Attending Provider: Caitlyn Keller Admit Provider: Kourtney Mclaughlin Primary Care Provider: [facility] Other Interventions: Discharge Summary Assessment (RN) Last Done: 11/10/19 13:24 PSY Interdisciplinary Discharge Planning Last Done: 11/10/19 13:24 Coding Level of Care Code 74070 D/C day mgmt > 30 min Diagnoses Psychotic disorder F29 Psychosis type: unspecified psychosis type
[2019-11-11] MEDS ORDERED: haloperidoL 5 MG TAB PO SCH (09:00)
== END 2019-11-10 14:18 | disposition home or self-care (01) | DRG 885 ==
LOC: ED 21:22 → SUATTDRO 10-20 05:34 → 3S 10-20 05:34